=== PATIENT | male | born 1960 | race African-American/Black ===

== ENCOUNTER 2017-01-29 15:10 | Inpatient (IN) | payer OTHER ==
[~2017-01-29] VITALS: Ht 170.2 cm; Wt 73.5 kg
[~2017-01-29 15:10] MED LIST: AMLO2.5T PO; ATOR40TA PO; FLUD0.1T PO; INSU100V7 SQ; LISI-607 PO; METO10TA3 PO; NORT10CA PO; OXYC30TA2 PO; PANT40TA2 PO; [UNRECOGNIZED DRUG - CODE] PO
--- NOTE | 2017-01-29 15:15 | NUR ---
PT BIBRA C/O COFFEE GROUND EMESIS X 2 DAYS. NO VOMITING AT THIS TIME. PT ALERT ORIENTED. DENIES ANY PAIN. PLACED ON MONITOR. HR 130S. MD MADE AWARE. AWAITING MD ORDER.
[2017-01-29] MEDS ORDERED: IV SET PRIMARY PUMP SET 1 EA INFUS.SET MC ONE ×4 (15:29→22:02)
[2017-01-29] MEDS ORDERED: IV NS 0.9% 1,000 ML ONE (15:29)
[2017-01-29] MEDS ORDERED: IV NS 0.9% 1,000 ML BAG IV ONE ×2 (15:30→18:00)
--- NOTE | 2017-01-29 15:37 | NUR ---
[place] #20 IV ACCESS. BLOOD SAMPLE COLLECTED SENT TO LAB
[2017-01-29] MEDS ORDERED: METF500T4 PO (15:47)
[2017-01-29] MEDS ORDERED: ASPI81TA2 PO (15:47)
[2017-01-29] MEDS ORDERED: GABA-536 PO (15:47)
[2017-01-29 15:52] LABS: BASOPHILS % (AUTO) 0.2 % (0.0-2.0); HEMATOCRIT 35 % (39-51); HEMOGLOBIN 11.6 g/dL (13.5-17.5); LYMPHOCYTES # (AUTO) 0.6 /CMM (0.8-4.8); LYMPHOCYTES % (AUTO) 2.5 % (20.0-44.0); MEAN CORPUSCULAR HEMOGLOBIN 30 PG (26.0-33.0); MEAN CORPUSCULAR HGB CONC 33 g/dl (31.0-36.0); MEAN CORPUSCULAR VOLUME 91 fL (80-96); MONOCYTES # (AUTO) 0.3 /CMM (0.1-1.30); MONOCYTES % (AUTO) 1.4 % (2.0-12.0); NEUTROPHILS # (AUTO) 21.4 /CMM (1.8-8.9); NEUTROPHILS % (AUTO) 95.9 % (43.0-81.0); PLATELET COUNT (AUTO) 302 /CMM (150-450); RDW COEFFICIENT OF VARIATION 13.3 (11.5-15.0); RED BLOOD CELL COUNT(AUTO) 3.85 MIL/uL (4.5-6.0); WHITE BLOOD COUNT (AUTO) 22.3 K/uL (4.3-11.0)
[2017-01-29 16:08] LABS: PROTHROMBIN TIME 10.7 SECS (9.5-12.7)
[2017-01-29 16:10] LABS: CALCIUM, SERUM 9.2 mg/dL (8.5-10.1); CARBON DIOXIDE 23 mmol/L (21-32); CHLORIDE 96 mmol/L (98-107); CREATININE 1.8 mg/dL (0.6-1.3); GFR 47 mL/min (>60); GLUCOSE 330 mg/dL (74-106); POTASSIUM 4.2 mmol/L (3.5-5.1); SODIUM SERUM 135 mmol/L (136-145); UREA NITROGEN, BLOOD 25 mg/dL (7-18)
[2017-01-29 16:13] LABS: ALANINE AMINOTRANSFERASE 45 U/L (12-78); ALBUMIN 3.2 g/dL (3.4-5.0); ALKALINE PHOSPHATASE 124 U/L (46-116); ASPARTATE AMINOTRANSFERASE 40 U/L (15-37); BILIRUBIN,DIRECT 0.1 mg/dL (0.0-0.2); BILIRUBIN,TOTAL 0.6 mg/dL (0.2-1.0); LIPASE 176 U/L (73-393); TOTAL PROTEIN, SERUM 8.5 g/dL (6.4-8.2); TROPONIN I < 0.017 ng/mL (0.00-0.056)
[2017-01-29] MEDS ORDERED: CEFTRIAXONE 1GM BAG (ER ONLY) 50 ML IV ONE ×2 (16:25→16:30)
--- NOTE | 2017-01-29 16:30 | NUR ---
DR LEONE MADE AWARE PT CONDITION.
--- NOTE | 2017-01-29 16:49 | NUR ---
PT AMBULATORY ABLE TO PROVIDE URINE SAMPLE JUST COLLECTED SENT TO LAB. REFUSED VALLE INSERTION.
[2017-01-29 16:53] LABS: BAND % (MANUAL) 8 % (0.0-5.0); LYMPHOCYTES % (MANUAL) 1 % (16-48); MONOCYTES % (MANUAL) 1 % (0-11.0); NEUTROPHILS % (MANUAL) 90 (42-76); PLATELET ESTIMATE ADEQUATE
[2017-01-29 16:54] LABS: ANISOCYTOSIS 1+
--- NOTE | 2017-01-29 17:03 | NUR ---
PT TRANSPORTED TO [facility] IN STABLE CONDITION VIA ACLS PROTOCOL. BEDSIDE REPORT TO BE GIVEN; AGREED TO PER ADMITTING RN
[2017-01-29 17:08] LABS: APPEARANCE,URINE CLEAR (CLEAR); BILIRUBIN,URINE NEGATIVE (NEGATIVE); BLOOD, URINE 3+ Ery/uL (NEGATIVE); COLOR,URINE YELLOW (YELLOW); KETONES,URINE 1+ (NEGATIVE); LEUKOCYTE ESTERASE ,URINE NEGATIVE (NEGATIVE); NITRITE, URINE NEGATIVE (NEGATIVE); PH,URINE 5.5 (5.0-8.0); PROTEIN,URINE 2+ mg/dl (NEGATIVE); UGLUCOSE 3+ mg/dL (NEGATIVE); UROBILINOGEN,URINE 0.2 EU/dL (0.2)
--- NOTE | 2017-01-29 17:15 | NUR ---
RN INITIAL NOTE RECEIVED PT IN NO ACUTE DISTRESS IN BED. PT IS A/O X 4 AND ABLE TO MAKE NEEDS KNOWN. PT IS ON RA AND TOLERATING WELL WITH O2 SAT 2 96%. PT DENIES ANY SOB, DIFFICULTY BREATHING OR PAIN AT THIS TIME. PT STATES HE IS NAUSEAS AND HAD ONE RED TINGED EMESIS. ZOFRAN 4MG WAS GIVEN IVP. PT HAS IV 20G IN THE RIGHT HAND THAT IS CLEAN DRY INTACT AND PATENT WITH SALINE FLUSH. BED IN LOW LOCK POSITION WITH RIALS UP X 2. CALL LIGHT WITHIN REACH AND ALL SAFETY MEASURES ENSURED AND CARRIED OUT. WILL CONTINUE TO MONITOR PT.
--- NOTE | 2017-01-29 17:22 | NUR ---
PER DR LEONE. FLUID CHALLENGE TO BE FOLLOWED IF LACTIC ACID = OR > 4 PENDING RESULTS. ROCEPHIN WAS GIVEN PROPHYLATIC DUE TO ELEVATED WBC PER DR LEONE
[2017-01-29 17:37] LABS: LACTIC ACID 2.9 mmol/L (0.4-2.0)
[2017-01-29 17:42] LABS: ADD URINE CULTURE NO; BACTERIA,URINE 1+ /HPF (None Seen); SQUAMOUS EPITHELIAL CELL,UR 0-2 /HPF (None Seen); YEAST,URINE Few /HPF (None Seen)
[2017-01-29] MEDS: BLOOD SUGAR DIAGNOSTIC 1 EACH STRIP IN SCH ×2 (18:00→23:54)
[2017-01-29] MEDS ORDERED: DEXTROSE 50%-WATER 50 ML DISP.SYRIN IV PRN (18:00)
[2017-01-29] MEDS: IV NS 0.9% 1,000 ML IV SCH (18:00)
[2017-01-29] MEDS ORDERED: ZOLPIDEM TARTRATE 5 MG TABLET PO PRN (18:00)
[2017-01-29] MEDS ORDERED: Z GUARD REMEDY 2 OZ OINT TP PRN (18:00)
[2017-01-29] MEDS ORDERED: BLOOD SUGAR DIAGNOSTIC 1 EACH STRIP IN SCH (18:00)
[2017-01-29] MEDS: VANCOMYCIN 1 GM in IV D5W 250 ML IV SCH (18:00)
[2017-01-29] MEDS ORDERED: MAGNESIUM HYDROXIDE 30 ML UDC PO PRN (18:00)
[2017-01-29] MEDS ORDERED: MAG HYDROX/AL HYDROX/SIMETH 30 ML UDC PO PRN (18:00)
[2017-01-29] MEDS ORDERED: FEE PK DOSING 1 MIN EA MC ONE (18:01)
[2017-01-29] MEDS ORDERED: IV NS 0.9% 1,000 ML IV ONE (18:30)
[2017-01-29] MEDS ORDERED: hydrALAZINE HCL 25 MG TABLET PO SCH (18:30)
[2017-01-29] MEDS ORDERED: hydrALAZINE HCL IV 20 MG VIAL IV ONE (18:30)
[2017-01-29] MEDS: ONDANSETRON HCL/PF 4 MG/2 ML VIAL IVP PRN (18:41)
[2017-01-29] MEDS ORDERED: SECONDARY IV SET 1 EA INFUS.SET MC ONE (19:39)
[2017-01-29 20:00] VITALS: BP 172/95
[2017-01-29] MEDS: METOPROLOL TARTRATE 25 MG TABLET PO SCH (20:11)
[2017-01-29] MEDS: AMLODIPINE BESYLATE 10 MG TABLET PO SCH (20:12)
[2017-01-29] MEDS: hydrALAZINE HCL 10 MG TABLET PO SCH (21:00)
--- NOTE | 2017-01-29 22:00 | NUR ---
RN NOTE RECEIVED ORDERS FROM BRANDON BOWDEN NP TO GIVE PT 500 ML BOLUS. ORDERS READ AND FOLLOWED.
[2017-01-29] MEDS ORDERED: PANTOPRAZOLE 40 MG VIAL ONE (22:02)
[2017-01-29] MEDS ORDERED: IV NS 0.9% 500 ML IV ONE (22:03)
[2017-01-29] MEDS: INSULIN REGULAR, HUMAN 100 UNIT/ML 3 ML VIAL SQ PRN (23:57)
[2017-01-30] VITALS (9 sets, daily range): BP systolic 109–172; BP diastolic 52–95
[2017-01-30] MEDS ORDERED: IV NS 0.9% 500 ML IV ONE ×3 (02:30→03:30)
[2017-01-30] MEDS ORDERED: IV SET PRIMARY PUMP SET 1 EA INFUS.SET MC ONE (03:09)
[2017-01-30] MEDS ORDERED: LIDOCAINE 2% JEL UROJET 10 ML MM ONE ×2 (03:21→03:30)
--- NOTE | 2017-01-30 03:30 | NUR ---
RN NOTE RECEIVED ORDER FROM BRANDON BOWDEN NP TO PLACE F/C. VALLE CATHETER PLACED SUCCESSFULLY AND RECEIVED GOOD URINE FLOW. URINE LOOKED COLETTE COLORED. PT TOLERATED PROCEDURE WELL.
[2017-01-30] MEDS: hydrALAZINE HCL 10 MG TABLET PO SCH (05:00)
[2017-01-30] MEDS: METOPROLOL TARTRATE 25 MG TABLET PO SCH ×2 (05:00→06:02)
[2017-01-30] MEDS: BLOOD SUGAR DIAGNOSTIC 1 EACH STRIP IN SCH ×3 (06:03→17:18)
[2017-01-30] MEDS: PIPERACILLIN /TAZOBACTAM 3.375 G in IV D5W 50 ML IV SCH ×5 (06:04→17:04)
[2017-01-30] MEDS: INSULIN REGULAR, HUMAN 100 UNIT/ML 3 ML VIAL SQ PRN (06:07)
[2017-01-30 07:07] LABS: CALCIUM, SERUM 7.6 mg/dL (8.5-10.1); MAGNESIUM 1.9 mg/dL (1.8-2.4); PHOSPHORUS 2.6 mg/dL (2.5-4.9); POTASSIUM 4.1 mmol/L (3.5-5.1)
[2017-01-30 07:11] LABS: THYROID STIMULATING HORMONE 0.299 uIU/mL (0.358-3.74)
[2017-01-30 07:31] LABS: HEMATOCRIT 32 % (39-51); HEMOGLOBIN 10.7 g/dL (13.5-17.5); LYMPHOCYTES # (AUTO) 0.8 /CMM (0.8-4.8); LYMPHOCYTES % (AUTO) 3.3 % (20.0-44.0); MEAN CORPUSCULAR HEMOGLOBIN 31 PG (26.0-33.0); MEAN CORPUSCULAR HGB CONC 34 g/dl (31.0-36.0); MEAN CORPUSCULAR VOLUME 92 fL (80-96); MONOCYTES # (AUTO) 1.1 /CMM (0.1-1.30); MONOCYTES % (AUTO) 4.6 % (2.0-12.0); NEUTROPHILS # (AUTO) 21.4 /CMM (1.8-8.9); NEUTROPHILS % (AUTO) 92.1 % (43.0-81.0); PLATELET COUNT (AUTO) 274 /CMM (150-450); RDW COEFFICIENT OF VARIATION 13.5 (11.5-15.0); RED BLOOD CELL COUNT(AUTO) 3.47 MIL/uL (4.5-6.0); WHITE BLOOD COUNT (AUTO) 23.2 K/uL (4.3-11.0)
[2017-01-30] MEDS: AMLODIPINE BESYLATE 10 MG TABLET PO SCH (08:54)
[2017-01-30] MEDS: PANTOPRAZOLE 80 MG in IV NS 0.9% 500 ML IV SCH ×2 (10:05→20:37)
[2017-01-30] MEDS: IV NS 0.9% 1,000 ML IV SCH (11:16)
--- NOTE | 2017-01-30 12:23 | NUR ---
WOUND CARE CONSULT: PATIENT SEEN AND SKIN ASSESSMENT DONE. PATIENT ALERT, ORIENTED, CONTINENT, AMBULATORY WITH WALKER, INDEPENDENT WITH BED MOBILITY, DEWAYNE 17. BILATERAL LOWER LEGS NOTED WITH HEALED SCARS, THE RIGHT FOOT NOTED WITH AMPUTATED 5TH TOE WITH HEALED INCISION, CLEAN AND DRY. THE RIGHT BIG TOE LACERATED WOUND PRESENT ON ADMISSION. PLS SEE TODAY'S SKIN ASSESSMENT IN PCS ALONG WITH RECOMMENDATIONS DISCUSSED WITH NURSING STAFF. MD IN AGREEMENT WITH PLAN OF CARE. Addendum: 01/30/17 at 1229 by FELIPA WOODU Amended: Links added. Addendum: 01/30/17 at 1234 by FELIPA WOODU WOUND CARE CONSULT CLARIFICATION OF WOUND SITE: PATIENT HAS TIP OF THE LEFT BIG TOE TRAUMATIC WOUND WITH LACERATION, NOT RIGHT. TYPO ERROR. SEE PCS SKIN ASSESSMENT AND RECOMMENDATIONS.
[2017-01-30] MEDS: VANCOMYCIN 1 GM in IV D5W 250 ML IV SCH (12:25)
[2017-01-30] MEDS: NEOMY SULF/BACITRAC ZN/POLY 15 GM TUBE TP SCH (12:30)
[2017-01-30] MEDS ORDERED: SECONDARY IV SET 1 EA INFUS.SET MC ONE (18:37)
[2017-01-30] MEDS: MEROPENEM 500 MG in IV NS 0.9% 50 ML IV SCH (18:42)
[2017-01-30] MEDS: HYDROCODONE/APAP 5/325MG 1 EACH TABLET PO PRN (18:42)
--- NOTE | 2017-01-30 19:24 | NUR ---
RN CLOSING NOTE PT REMAINS IN NO ACUTE DISTRESS IN BED. PT DID NOT HAVE ANY SIGNIFICANT CHANGE IN CONDITION DURING THE SHIFT. WILL ENDORSE TO pm RN FOR CONTINUITY OF CARE. .
--- NOTE | 2017-01-30 21:09 | NUR ---
RN INITIAL NOTE RECEIVED PT IN NO ACUTE DISTRESS IN BED. PT IS A/O X 4 AND ABLE TO MAKE NEEDS KNOWN. PT IS ON 4LPM VIA MASK AND TOLERATING WELL WITH O2 SAT @ 96%. PT DENIES ANY SOB, DIFFICULTY BREATHING OR PAIN AT THIS TIME. PT IS ON TELE WITH SR-ST @ 98-100s. PT HAS IV 20G IN THE RIGHT HAND THAT IS CLEAN DRY INTACT AND PATENT WITH NS @ 75ML/HR AND PROTONIX DRIP @ 52ML/HR. BED IN LOW LOCK POSITION WITH RIALS UP X 2. CALL LIGHT WITHIN REACH AND ALL SAFETY MEASURES ENSURED AND CARRIED OUT. WILL CONTINUE TO MONITOR PT.
[2017-01-30] MEDS: INSULIN DETEMIR 100 UNIT/ML CARTRIDGE SQ SCH (21:43)
[2017-01-31] VITALS (7 sets, daily range): BP systolic 97–146; BP diastolic 47–86
[2017-01-31] MEDS: BLOOD SUGAR DIAGNOSTIC 1 EACH STRIP IN SCH ×4 (00:57→17:03)
[2017-01-31] MEDS: INSULIN REGULAR, HUMAN 100 UNIT/ML 3 ML VIAL SQ PRN (00:58)
[2017-01-31] MEDS ORDERED: LORAZEPAM INJ 2 MG/ML VIAL ONE (03:04)
[2017-01-31] MEDS: LORAZEPAM INJ 2 MG/ML VIAL IV PRN ×2 (03:18→17:10)
[2017-01-31] MEDS: IV NS 0.9% 1,000 ML IV PRN (03:22)
[2017-01-31] MEDS: MEROPENEM 500 MG in IV NS 0.9% 50 ML IV SCH ×2 (04:56→17:02)
[2017-01-31] MEDS: VANCOMYCIN 1 GM in IV D5W 250 ML IV SCH (05:47)
[2017-01-31] MEDS: METOPROLOL TARTRATE 25 MG TABLET PO SCH ×2 (06:38→17:35)
[2017-01-31 06:57] LABS: BASOPHILS % (AUTO) 0.1 % (0.0-2.0); HEMATOCRIT 31 % (39-51); HEMOGLOBIN 10.4 g/dL (13.5-17.5); LYMPHOCYTES # (AUTO) 1.2 /CMM (0.8-4.8); LYMPHOCYTES % (AUTO) 4.3 % (20.0-44.0); MEAN CORPUSCULAR HEMOGLOBIN 31 PG (26.0-33.0); MEAN CORPUSCULAR HGB CONC 34 g/dl (31.0-36.0); MEAN CORPUSCULAR VOLUME 91 fL (80-96); MONOCYTES # (AUTO) 1.4 /CMM (0.1-1.30); NEUTROPHILS # (AUTO) 25.3 /CMM (1.8-8.9); NEUTROPHILS % (AUTO) 90.6 % (43.0-81.0); PLATELET COUNT (AUTO) 265 /CMM (150-450); RDW COEFFICIENT OF VARIATION 13.9 (11.5-15.0); RED BLOOD CELL COUNT(AUTO) 3.41 MIL/uL (4.5-6.0)
[2017-01-31 07:04] LABS: CALCIUM, SERUM 7.7 mg/dL (8.5-10.1); POTASSIUM 3.6 mmol/L (3.5-5.1)
[2017-01-31] MEDS ORDERED: KETAMINE HCL (500MG/10ML) 50 MG/ML VIAL ONE (07:23)
--- NOTE | 2017-01-31 07:51 | NUR ---
RN CLOSING NOTE PT REMAINS IN NO ACUTE DISTRESS IN BED. PT DID NOT HAVE ANY SIGNIFICANT CHANGE IN CONDITION DURING SHIFT. WILL ENDORSE CARE TO AM RN FOR CONTINUITY OF CARE.
[2017-01-31] MEDS: NEOMY SULF/BACITRAC ZN/POLY 15 GM TUBE TP SCH (09:14)
[2017-01-31] MEDS: AMLODIPINE BESYLATE 10 MG TABLET PO SCH (09:21)
--- NOTE | 2017-01-31 10:30 | NUR ---
HIDES INSPECTOR NOTE Pt left for OR around 0730, arrived back around 0900. VSS, advanced diet to clear liquid. On 5L mask, O2 90-93%. AOx4. Abdomen distended. Right wrist IV removed, has left wrist IV. Only able to run 1 IV fluid through left wrist, running protonix gtt at 8mg/hr. Received order for midline to be inserted later today. Will cont to monitor.
[2017-01-31 11:56] LABS: LYMPHOCYTES % (MANUAL) 10 % (16-48); MONOCYTES % (MANUAL) 5 % (0-11.0); NEUTROPHILS % (MANUAL) 85 (42-76); PLATELET ESTIMATE ADEQUATE
[2017-01-31] MEDS ORDERED: IV SET PRIMARY PUMP SET 1 EA INFUS.SET MC ONE (15:15)
[2017-01-31] MEDS: PANTOPRAZOLE 80 MG in IV NS 0.9% 500 ML IV SCH (15:22)
[2017-01-31] MEDS: HYDROCODONE/APAP 5/325MG 1 EACH TABLET PO PRN (16:51)
--- NOTE | 2017-01-31 17:59 | NUR ---
SITE SAFETY REPRESENTATIVE NOTE ADRIANO midline 18g placed, NS infusing at 75ml/hr. +MD TAI aware. Switches between mask and NC, O2 90-93%. BG at 1200 62, gave juice, BG at 1800 105. Still on clear liquids, tolerating well. Cherokee x1 for pain, ativan x1 for restlessness. Chapman w/ adequate UO. BM x1, watery, dark. Will endorse to next RN.
[2017-01-31] MEDS: RIFAMPIN 300 MG CAPSULE PO SCH (19:01)
--- NOTE | 2017-01-31 20:15 | NUR ---
RN NOTE. INITIAL ASSESSMENT. RECEIVED THE PT REST ON THE BED. AWAKE, ALERT, FOLLOW COMMANDS. OXYGEN 5L VIA NASAL CANNULA. SAT 97 %. BULB GROWER SHOWING S TACH. IV RT UPPER ARM MID LINE. IVF NS 75 ML/PROTONIX 50 ML/H. . FC PATENT. URINE DRAINING. HOB ELEVATED.TURN AND REPOSITION Q2H. WILL CONTINUE TO MONITOR VITALS.
[2017-01-31] MEDS: INSULIN DETEMIR 100 UNIT/ML CARTRIDGE SQ SCH (22:00)
--- NOTE | 2017-01-31 23:25 | NUR ---
RN NOTE. PT HAS SHORTNESS OF BREATH CALLED DR BEDOYA NEW ORDER RECEIVED.
[2017-01-31 23:51] LABS: ABG BASE EXCESS -3.6 mmol/L; ABG OXYGEN SATURATION 87.1 % (92.0-98.5); ABG PCO2 32.5 mmHg (35.0-45.0); ABG PH 7.413 (7.350-7.450); ABG PO2 53.1 mmHg (75.0-100.0); ABG TOTAL HEMOGLOBIN 10.7 G/dL (13.5-18.0); AaDO2 194.7 mmHg; COHb 0.2 % (0.5-1.5); MetHb 1.1 % (0.0-1.5); SITE, ABG Right Radial; VENT MODE, BG Nasal Cannula
[2017-02-01] VITALS (8 sets, daily range): BP systolic 112–152; BP diastolic 70–85
--- NOTE | 2017-02-01 00:43 | NUR ---
RN NOTE. LEVEMIR 2200 NOT GIVEN.BLOOD SUGAR 92.
[2017-02-01] MEDS: PANTOPRAZOLE 80 MG in IV NS 0.9% 500 ML IV SCH (00:53)
[2017-02-01] MEDS: BLOOD SUGAR DIAGNOSTIC 1 EACH STRIP IN SCH ×4 (00:53→17:40)
[2017-02-01] MEDS: VANCOMYCIN 1 GM in IV D5W 250 ML IV SCH ×2 (00:53→18:24)
[2017-02-01] MEDS: IV NS 0.9% 1,000 ML IV PRN (00:54)
--- NOTE | 2017-02-01 02:12 | NUR ---
PRODUCTION SUPV. DR ROSEN ORDERED MRI LT FOOT. CALLED X RAY. MRI NO PRODUCTION SERVICE MANAGER. ONLY MORNING.
--- NOTE | 2017-02-01 02:55 | NUR ---
RN NOTE. AM CARE. ORAL CARE. BED BATH GIVEN. LINEN CHANGED. REMAINING SAME OXYGEN 5L VIA NASAL CANNULA. SAT99 %. ABDOMEN DISTENDED.IV RT UPPER ARM MID LINE. NS 75ML/H, PROTONIX 50 ML/H. HOB ELEVATED. TURN AND REPOSITION PT INDEPENDENT.FC PATENT. URINE DRAINING. WILL CONTINUE TO MONITOR VITALS.
[2017-02-01] MEDS: LORAZEPAM INJ 2 MG/ML VIAL IV PRN (04:36)
[2017-02-01] MEDS: MEROPENEM 500 MG in IV NS 0.9% 50 ML IV SCH ×2 (05:55→17:40)
[2017-02-01] MEDS: METOPROLOL TARTRATE 25 MG TABLET PO SCH ×2 (05:56→18:30)
[2017-02-01] MEDS: HYDROCODONE/APAP 5/325MG 1 EACH TABLET PO PRN ×3 (06:20→20:25)
[2017-02-01] MEDS: NEOMY SULF/BACITRAC ZN/POLY 15 GM TUBE TP SCH (08:14)
[2017-02-01] MEDS: RIFAMPIN 300 MG CAPSULE PO SCH (08:21)
[2017-02-01] MEDS: AMLODIPINE BESYLATE 10 MG TABLET PO SCH (08:21)
[2017-02-01 08:37] LABS: BASOPHILS % (AUTO) 0.1 % (0.0-2.0); HEMATOCRIT 27 % (39-51); HEMOGLOBIN 9.2 g/dL (13.5-17.5); LYMPHOCYTES # (AUTO) 1.3 /CMM (0.8-4.8); LYMPHOCYTES % (AUTO) 4.5 % (20.0-44.0); MEAN CORPUSCULAR HEMOGLOBIN 31 PG (26.0-33.0); MEAN CORPUSCULAR HGB CONC 34 g/dl (31.0-36.0); MEAN CORPUSCULAR VOLUME 90 fL (80-96); MONOCYTES % (AUTO) 3.5 % (2.0-12.0); NEUTROPHILS # (AUTO) 26.1 /CMM (1.8-8.9); NEUTROPHILS % (AUTO) 91.9 % (43.0-81.0); PLATELET COUNT (AUTO) 227 /CMM (150-450); RDW COEFFICIENT OF VARIATION 13.8 (11.5-15.0); RED BLOOD CELL COUNT(AUTO) 3.02 MIL/uL (4.5-6.0); WHITE BLOOD COUNT (AUTO) 28.4 K/uL (4.3-11.0)
[2017-02-01 08:41] LABS: CALCIUM, SERUM 7.2 mg/dL (8.5-10.1); CREATININE 1.9 mg/dL (0.6-1.3); MAGNESIUM 2.4 mg/dL (1.8-2.4); PHOSPHORUS 2.4 mg/dL (2.5-4.9); POTASSIUM 3.3 mmol/L (3.5-5.1)
[2017-02-01 09:23] LABS: BAND % (MANUAL) 2 % (0.0-5.0); LYMPHOCYTES % (MANUAL) 4 % (16-48); MONOCYTES % (MANUAL) 3 % (0-11.0); NEUTROPHILS % (MANUAL) 91 (42-76); PLATELET ESTIMATE ADEQUATE
--- NOTE | 2017-02-01 10:00 | NUR ---
SHREDDED FILLER MACHINE WRAPPER LAYER NOTE AOx4, O2 88-93% on 5L NC. MRI foot done. Denies SOB, nausea. On isolation. ADRIANO midline with NS 75ml/hr and protonix 8mg/hr. Advanced to full liquid diet. Chapman patent. Will cont to monitor.
[2017-02-01] MEDS: INSULIN REGULAR, HUMAN 100 UNIT/ML 3 ML VIAL SQ PRN ×2 (11:44→17:57)
[2017-02-01] MEDS ORDERED: POTASSIUM CHLORIDE 10 MEQ TABLET.SA PO ONE (12:30)
[2017-02-01] MEDS: ACETAMINOPHEN 325 MG TABLET PO PRN (12:35)
[2017-02-01] MEDS ORDERED: K PHOS NEUTRAL 250 MG TABLET PO ONE (13:00)
[2017-02-01] MEDS ORDERED: POTASSIUM CHLORIDE 20 MEQ TAB.PRT.SR PO ONE (17:30)
[2017-02-01] MEDS ORDERED: FUROSEMIDE 100 MG/10 ML VIAL IV ONE (17:30)
--- NOTE | 2017-02-01 18:33 | NUR ---
EDITING INTERNSHIP NOTE Pt c/o difficulty catching breath, CXR ordered. 1x lasix given, on scheduled nebs. 450cc UO. Maple x1 for pain in chest. Will have surgery tmrw for left toe amputation, NPO at midnight, consent signed. FNS consult ordered d/t pt not having an appetite. NS TKO for abx. Phos and K replaced. Will endorse to next RN.
--- NOTE | 2017-02-01 19:30 | NUR ---
BUCKLE AND BUTTON MAKER INITIAL NOTE RECEIVED PATIENT FROM AM SHIFT. PT IS A/OX4 O2 88-93% on 5L NC. PT ON TELE ST 120. FC IS PATENT FLOWING WELL. ADRIANO 18G MIDLINE PATENT AND INTACT WITH NO S/S OF INFILTRATION. WILL CONTINUE TO MONITOR AND FOLLOW MD ORDERS.
[2017-02-01] MEDS: IPRATROPIUM NEB FS 0.5 MG/2.5 ML AMPUL.NEB NEB SCH ×2 (19:36→23:22)
[2017-02-01] MEDS: ALBUTEROL HALF STRENGTH 1.25 MG/3 ML VIAL.NEB NEB SCH ×2 (19:36→23:22)
[2017-02-01] MEDS: INSULIN DETEMIR 100 UNIT/ML CARTRIDGE SQ SCH (22:00)
[2017-02-02] VITALS: BP 157/76
[2017-02-02] MEDS: ACETAMINOPHEN 325 MG TABLET PO PRN ×2 (00:27→08:38)
[2017-02-02] MEDS ORDERED: IV NS 0.9% 500 ML IV ONE (01:57)
[2017-02-02] MEDS ORDERED: PANTOPRAZOLE 40 MG VIAL ONE (01:58)
[2017-02-02] MEDS: PANTOPRAZOLE 80 MG in IV NS 0.9% 500 ML IV SCH (02:14)
[2017-02-02] MEDS ORDERED: IV NS 0.9% 250 ML IV ONE (02:17)
[2017-02-02] MEDS ORDERED: IV SET PRIMARY PUMP SET 1 EA INFUS.SET MC ONE ×2 (02:18→19:57)
[2017-02-02] MEDS: ALBUTEROL HALF STRENGTH 1.25 MG/3 ML VIAL.NEB NEB SCH ×6 (03:12→23:30)
[2017-02-02] MEDS: IPRATROPIUM NEB FS 0.5 MG/2.5 ML AMPUL.NEB NEB SCH ×6 (03:12→23:30)
--- NOTE | 2017-02-02 03:13 | NUR ---
RT PT REFUSED TX. TX MAKES HI FEEL SHAKY AT TIMES. NO SOB OR DISTRESS NOTED.
[2017-02-02 04:00] VITALS: BP 141/84
[2017-02-02] MEDS: MEROPENEM 500 MG in IV NS 0.9% 50 ML IV SCH ×2 (05:29→17:50)
[2017-02-02] MEDS: METOPROLOL TARTRATE 25 MG TABLET PO SCH ×2 (05:46→18:07)
[2017-02-02] MEDS: BLOOD SUGAR DIAGNOSTIC 1 EACH STRIP IN SCH ×5 (06:00→23:09)
[2017-02-02 06:40] LABS: BASOPHILS # (AUTO) 0.1 /CMM (0.0-0.2); BASOPHILS % (AUTO) 0.3 % (0.0-2.0); EOSINOPHILS # (AUTO) 0.1 /CMM (0.0-0.7); EOSINOPHILS % (AUTO) 0.3 % (0.0-6.0); HEMATOCRIT 29 % (39-51); HEMOGLOBIN 9.7 g/dL (13.5-17.5); LYMPHOCYTES # (AUTO) 2.2 /CMM (0.8-4.8); LYMPHOCYTES % (AUTO) 7.1 % (20.0-44.0); MEAN CORPUSCULAR HEMOGLOBIN 31 PG (26.0-33.0); MEAN CORPUSCULAR HGB CONC 34 g/dl (31.0-36.0); MEAN CORPUSCULAR VOLUME 92 fL (80-96); MONOCYTES % (AUTO) 6.5 % (2.0-12.0); NEUTROPHILS # (AUTO) 26.3 /CMM (1.8-8.9); NEUTROPHILS % (AUTO) 85.8 % (43.0-81.0); PLATELET COUNT (AUTO) 275 /CMM (150-450); RED BLOOD CELL COUNT(AUTO) 3.14 MIL/uL (4.5-6.0)
[2017-02-02 06:52] LABS: WHITE BLOOD COUNT (AUTO) 30.6 K/uL (4.3-11.0)
[2017-02-02 07:07] LABS: CALCIUM, SERUM 7.5 mg/dL (8.5-10.1); CREATININE 1.9 mg/dL (0.6-1.3); PHOSPHORUS 2.5 mg/dL (2.5-4.9); POTASSIUM 3.8 mmol/L (3.5-5.1)
[2017-02-02 07:24] LABS: INR 0.95 (0.87-1.13); PROTHROMBIN TIME 10.1 SECS (9.5-12.7)
[2017-02-02 08:00] VITALS: BP 155/76
--- NOTE | 2017-02-02 08:00 | NUR ---
REGIONAL DIRECTOR NOTE PATINT BACK FROM OR, SX WAS CANCELED DR CROCKETT AND DR LY AWARE , PATINE ALERT ORIENTED, IN SIMPLE MASK 6L SAT 91% STATED ITS HARD TO BREATH ON PROTONIX RIP , ORDERED, BED IN LOWEST AND LOCKED POSITION, CALL LIGHT WITH REACH, PER DR SEGOVIA OK TO START FULL LIQUID DIET T 100.4
--- NOTE | 2017-02-02 08:15 | NUR ---
SYSTEM ANALYST NOTE HAVING BREAKFAST ABLE TO EAT SELF, REPOSITION DONE ,MAKE ALL NEEDS KNOW, ADJUSTED SIMPLE MASK TO 7L SAT 94%, CALLED RT FOR BREATHING TX
--- NOTE | 2017-02-02 08:30 | NUR ---
ALMOND ROASTER NOTE STILL C\O DIFFICULT TO BREATH ,CALLED RT , PATIENT NOW ON BREATHING , ABG DOING NOW AND EKG , PATENT C]O NOW CHEST PAIN JUHI URBINA DNP NOTIFIED
[2017-02-02] MEDS: RIFAMPIN 300 MG CAPSULE PO SCH (08:38)
[2017-02-02] MEDS: NEOMY SULF/BACITRAC ZN/POLY 15 GM TUBE TP SCH (08:39)
[2017-02-02 08:41] LABS: EOSINOPHILS % (MANUAL) 1 % (0-4); LYMPHOCYTES % (MANUAL) 10 % (16-48); MONOCYTES % (MANUAL) 3 % (0-11.0); NEUTROPHILS % (MANUAL) 86 (42-76)
[2017-02-02 08:42] LABS: ANISOCYTOSIS 1+; PLATELET ESTIMATE ADEQUATE
--- NOTE | 2017-02-02 09:00 | NUR ---
ADDING MACHINE SERVICER NOTE ABG DONE EKG DONE , PER RT AND ABG RESULT PLACED ON 6; SIMPLE MASK , SPOKE WITH DR DE JESUS NOTIFIED ABOUT PATIENT CONDITION ,STATED THAT WILL CHECK IT, TYLENOL AND COOLING MEASURES PROVIDED FOR T 100.4
[2017-02-02 09:30] LABS: ABG BASE EXCESS -4.2 mmol/L; ABG OXYGEN SATURATION 92.6 % (92.0-98.5); ABG PCO2 31.2 mmHg (35.0-45.0); ABG PH 7.412 (7.350-7.450); ABG PO2 67.1 mmHg (75.0-100.0); ABG TOTAL HEMOGLOBIN 12.3 G/dL (13.5-18.0); AaDO2 110.1 mmHg; COHb 1.3 % (0.5-1.5); MetHb 0.8 % (0.0-1.5); O2Hb 90.7 % (94.0-97.0); SITE, ABG Right Radial; VENT MODE, BG Nasal Cannula
[2017-02-02] MEDS: AMLODIPINE BESYLATE 10 MG TABLET PO SCH (09:59)
--- NOTE | 2017-02-02 10:16 | NUR ---
JOSE VELA NOTE MANISHG COMFORTABLY FOR LINDA , SAT 98% , T 99.3 Addendum: 02/02/17 at 1048 by FLORENTINO DALE RN HAVING BREATHING TX FOR NOW
--- NOTE | 2017-02-02 11:28 | NUR ---
PRODUCT DEVELOPMENT CONSULTANT NOTE PER DIETITIAN OK TO START BOOST TID
[2017-02-02] MEDS ORDERED: PANTOPRAZOLE 80 MG in IV NS 0.9% 500 ML IV PRN (11:30)
[2017-02-02] MEDS: VANCOMYCIN 1 GM in IV D5W 250 ML IV SCH (11:50)
[2017-02-02] MEDS: INSULIN REGULAR, HUMAN 100 UNIT/ML 3 ML VIAL SQ PRN ×3 (11:54→23:09)
[2017-02-02 12:00] VITALS: BP 139/67
[2017-02-02] MEDS: BOOST GLUCOSE CONTROL VANILLA 237 ML BOX PO SCH ×2 (12:40→18:08)
--- NOTE | 2017-02-02 14:09 | NUR ---
FIELD APPLICATIONS SPECIALIST NOTE SPOKE WITH JUHI URBINA NOTIFIED ABOUT PATIENT CONDITION, ABDOMEN STILL DISTENDED BOWEL MOVEMENT DONE AND STILL HAS SOB ON 6L SIMPLE MASK , SAT 95% AWARE THAT WBC 30.0 TODAY , ON BREATHING TX Q4 HOUR ON VANCO AND MERREM IV ,STATED THAT WILL SEE PATIENT SOON ,AWARE THAT ON ABG PO2 67 ALSO AWARE THAT HR ST 128-130
--- NOTE | 2017-02-02 14:34 | NUR ---
HARNESS REPAIRER NOTE PER JUHI URBINA DNP DONT GIVE PNA VACCINE AT THIS TIME DUE TO SEVERE CHEST CONGESTION , CIARA AT BESIDE, EXAMINED PATIENT AWARE OF CHEST X RAY RESULT AND HR 125 WITH STILL SOB
[2017-02-02] MEDS ORDERED: POTASSIUM CHLORIDE 20 MEQ TAB.PRT.SR PO ONE ×2 (15:00→19:30)
[2017-02-02] MEDS ORDERED: FUROSEMIDE 100 MG/10 ML VIAL IV ONE (15:00)
[2017-02-02 15:28] LABS: ABG BASE EXCESS -1.9 mmol/L; ABG OXYGEN SATURATION 92.6 % (92.0-98.5); ABG PCO2 30.6 mmHg (35.0-45.0); ABG TOTAL HEMOGLOBIN 9.9 G/dL (13.5-18.0); COHb 0.3 % (0.5-1.5); MetHb 1.1 % (0.0-1.5); O2Hb 91.3 % (94.0-97.0); SITE, ABG Right Radial; VENT MODE, BG SM
--- NOTE | 2017-02-02 15:45 | NUR ---
TERRITORY ACCOUNT REPRESENTATIVE NOTE ABG DONE STAT ORDERED REPORTED RESULT TO JUHI URBINA DNP, ON BREATHING TX AT THIS TIME
[2017-02-02 16:00] VITALS: BP 155/75
--- NOTE | 2017-02-02 16:24 | NUR ---
ARTICULATION OFFICER NOTE BREATHING TX DONE, TAKEN TO RADIOLOGY RO CT CHEST
--- NOTE | 2017-02-02 16:34 | NUR ---
MEDIA CENTER DIRECTOR SCHOOL NOTE PER JUHI URBINA ORDER D\C PROTONIX DRIP START BID
[2017-02-02] MEDS ORDERED: PANTOPRAZOLE 40 MG VIAL IV SCH (17:00)
[2017-02-02] MEDS ORDERED: INSULIN REGULAR, HUMAN 100 UNIT/ML 3 ML VIAL SQ ONE (18:00)
[2017-02-02] MEDS ORDERED: BUMETANIDE INJ 6 MG in IV NS 0.9% 36 ML IV ONE (19:00)
--- NOTE | 2017-02-02 19:07 | NUR ---
telephone directory distributor driver anabelle called to tressa mccartney dnp notifyed ct chest result with new order kcl and start on bumex drip 1mg\hr x6 hour , order carried out
--- NOTE | 2017-02-02 19:30 | NUR ---
MARKETING PLANNING MANAGER: PT RECEIVED A/O X3, WATCHING TV WITH EPISODE OF RESTLESSNESS. ON 5L 02 VIA VIA FACE MASK AND C/O OF HAVING DIFFICULTY BREATHING. SOB WT ABDOMINAL DISTENTION NOTED. REPOSITIONED FOR COMFORT, HOB ON HIGH-DO'S. ST ON TELE MONITOR. F/C PATENT AND INTACT DRAINING TEA COLORED URINE TO GRAVITY. SAFETY PRECAUTION NOTED. WILL CONTINUE TO MONITOR.
[2017-02-02 20:00] VITALS: BP 150/78
[2017-02-02] MEDS: PANTOPRAZOLE 40 MG VIAL IV SCH (21:20)
[2017-02-02] MEDS: INSULIN DETEMIR 100 UNIT/ML CARTRIDGE SQ SCH (23:07)
--- NOTE | 2017-02-02 23:38 | NUR ---
RT PT REFUSED MEDS AT THIS TIME. NO SOB OR DISTRESS NOTED.
[2017-02-03] VITALS: BP 125/55
--- NOTE | 2017-02-03 00:30 | NUR ---
BAND BIAS MACHINE OPERATOR: PT ASLEEP, EASILY AROUSED VIA VERBAL/TOUCH STIMULI. NO ACUTE DISTRESS. 02 SAT 99-100%. REMAINED ON 5L [address] V[address] MASK. STILL [address] ON TELE MONITOR. NOTED LARGE AMT. OF TEA COLORED URINE IN F/C WHILE ON BUMEX DRIP. VERBALIZED HE IS FEELING BETTER. WILL CONTINUE TO MONITOR.
[2017-02-03] MEDS ORDERED: IV NS 0.9% 250 ML IV ONE ×2 (03:27→17:33)
[2017-02-03] MEDS: ALBUTEROL HALF STRENGTH 1.25 MG/3 ML VIAL.NEB NEB SCH ×6 (03:30→23:13)
[2017-02-03] MEDS: IPRATROPIUM NEB FS 0.5 MG/2.5 ML AMPUL.NEB NEB SCH ×6 (03:30→23:13)
--- NOTE | 2017-02-03 03:30 | NUR ---
SENIOR IT ARCHITECT: PLACED ON 4L O2 VIA NC. NO ACUTE DISTRESS. NO EVIDENCE OF DISCOMFORT.
[2017-02-03] MEDS: IV NS 0.9% 250 ML IV PRN ×2 (03:36→19:27)
[2017-02-03 04:00] VITALS: BP 133/75
[2017-02-03] MEDS ORDERED: SECONDARY IV SET 1 EA INFUS.SET MC ONE ×2 (04:06→11:39)
[2017-02-03] MEDS: MEROPENEM 500 MG in IV NS 0.9% 50 ML IV SCH ×2 (05:20→19:07)
[2017-02-03 06:07] LABS: BASOPHILS # (AUTO) 0.1 /CMM (0.0-0.2); BASOPHILS % (AUTO) 0.4 % (0.0-2.0); EOSINOPHILS # (AUTO) 0.2 /CMM (0.0-0.7); EOSINOPHILS % (AUTO) 0.6 % (0.0-6.0); HEMATOCRIT 31 % (39-51); HEMOGLOBIN 10.7 g/dL (13.5-17.5); LYMPHOCYTES # (AUTO) 2.3 /CMM (0.8-4.8); LYMPHOCYTES % (AUTO) 7.4 % (20.0-44.0); MEAN CORPUSCULAR HEMOGLOBIN 30 PG (26.0-33.0); MEAN CORPUSCULAR HGB CONC 34 g/dl (31.0-36.0); MEAN CORPUSCULAR VOLUME 89 fL (80-96); MONOCYTES # (AUTO) 2.1 /CMM (0.1-1.30); MONOCYTES % (AUTO) 6.9 % (2.0-12.0); NEUTROPHILS # (AUTO) 25.9 /CMM (1.8-8.9); NEUTROPHILS % (AUTO) 84.7 % (43.0-81.0); PLATELET COUNT (AUTO) 362 /CMM (150-450); RDW COEFFICIENT OF VARIATION 13.9 (11.5-15.0); RED BLOOD CELL COUNT(AUTO) 3.52 MIL/uL (4.5-6.0)
[2017-02-03 06:18] LABS: CALCIUM, SERUM 8.3 mg/dL (8.5-10.1); CREATININE 1.7 mg/dL (0.6-1.3); MAGNESIUM 1.6 mg/dL (1.8-2.4); POTASSIUM 3.2 mmol/L (3.5-5.1)
[2017-02-03 06:23] LABS: WHITE BLOOD COUNT (AUTO) 30.6 K/uL (4.3-11.0)
--- NOTE | 2017-02-03 06:23 | NUR ---
SERVICE DESK ASSOCIATE: RECEIVED WBC=30.6, THE SAME WT YESTERDAY. ALREADY ON ATB THERAPY WT NO ASE. NO FEVER NOTED AT THIS TIME. FARA CHARGE NURSE MADE AWARE. PT REMAINED A/O X 3, ON 4L 02 VIA NC WT NO ACUTE DISTRESS. NO C/O PAIN OR EVIDENCE OF DISCOMFORT. ST ON TELE MONITOR WT HR IN LOW 100s. ALL NEEDS MET. SAFETY PRECAUTION NOTED.
[2017-02-03] MEDS: BLOOD SUGAR DIAGNOSTIC 1 EACH STRIP IN SCH ×4 (06:37→23:10)
[2017-02-03] MEDS: METOPROLOL TARTRATE 25 MG TABLET PO SCH ×2 (06:39→18:29)
[2017-02-03] MEDS: VANCOMYCIN 1 GM in IV D5W 250 ML IV SCH (06:45)
[2017-02-03 07:12] LABS: BAND % (MANUAL) 5 % (0.0-5.0); LYMPHOCYTES % (MANUAL) 8 % (16-48); METAMYELOCYTES % 1 % (0-0); MONOCYTES % (MANUAL) 7 % (0-11.0); NEUTROPHILS % (MANUAL) 79 (42-76); PLATELET ESTIMATE ADEQUATE
--- NOTE | 2017-02-03 07:20 | NUR ---
RN INTIAL NOTE RECEIVED PT FROM PM NURSE A/OX3 PT ABLE TO COMMUNICATE. NC @5 L/MIN SPO2 @95%. NO C/O OF PAIN 0/10. F/C INTACT URINE YELLOW IN COLOR . IV R U MIDLINE N/S @ TKO FLUSHED AND PATENT. REPOSITIONED FOR COMFORT AND SAFETY. PT KEPT WARM AND DRY. WILL CONTINUE TO MONITOR CLOSELY.
[2017-02-03 08:00] VITALS: BP 151/78
[2017-02-03] MEDS: PANTOPRAZOLE 40 MG VIAL IV SCH ×2 (09:26→21:30)
[2017-02-03] MEDS: RIFAMPIN 300 MG CAPSULE PO SCH (09:26)
[2017-02-03] MEDS: BOOST GLUCOSE CONTROL VANILLA 237 ML BOX PO SCH ×3 (09:27→17:00)
[2017-02-03] MEDS: NEOMY SULF/BACITRAC ZN/POLY 15 GM TUBE TP SCH (09:27)
[2017-02-03] MEDS: AMLODIPINE BESYLATE 10 MG TABLET PO SCH (09:27)
[2017-02-03] MEDS ORDERED: Magnesium 1GM/D5W 100ML PREMIX 100 ML IV SCH (10:30)
[2017-02-03] MEDS ORDERED: POTASSIUM PHOSPHATE MM 15 MMOL in IV D5W 250 ML IV SCH (10:30)
[2017-02-03] MEDS: POTASSIUM PHOSPHATE MM 7.5 MMOL in IV D5W 100 ML IV SCH ×2 (12:10→16:00)
[2017-02-03] MEDS: INSULIN REGULAR, HUMAN 100 UNIT/ML 3 ML VIAL SQ PRN ×3 (12:19→23:11)
[2017-02-03] MEDS: HYDROCODONE/APAP 5/325MG 1 EACH TABLET PO PRN (12:30)
--- NOTE | 2017-02-03 15:31 | NUR ---
RN NOTE CALLED AND LEFT MESSAGE FOR PHYSICAL EDUCATION INSTRUCTOR PT C/O DIARRHEA WITH BOOST. WILL HOLD AND WAIT FOR CALL BACK TO CHANGE OR SUBSTITUTE.
[2017-02-03 16:00] VITALS: BP 144/82
--- NOTE | 2017-02-03 19:18 | NUR ---
RN CLOSING NOTE A/OX3 PT ABLE TO COMMUNICATE NEEDS AND WANTS. NC @5 L/MIN SPO2 @99%. NO C/O OF PAIN 0/10. F/C INTACT URINE DARK YELLOW IN COLOR . IV R U MIDLINE N/S @ TKO AND INTACT. REPOSITIONED FOR COMFORT AND SAFETY. PT KEPT WARM AND DRY.ALL MEDICATIONS GIVEN AND ALL MD ORDERS CARRIED OUT. REPORT GIVEN TO PM NURSE FOR DANIELA.
--- NOTE | 2017-02-03 19:57 | NUR ---
RT PT REFUSED MEDS AT THIS TIME. NO SOB OR DISTRESS NOTED.
[2017-02-03 20:00] VITALS: BP 149/81
[2017-02-03] MEDS: METRONIDAZOLE 500 MG TABLET PO SCH (21:30)
[2017-02-03] MEDS: LORAZEPAM INJ 2 MG/ML VIAL IV PRN (21:57)
[2017-02-03] MEDS: INSULIN DETEMIR 100 UNIT/ML CARTRIDGE SQ SCH (23:11)
[2017-02-03] MEDS ORDERED: BUMETANIDE INJ 0.25 MG/ML VIAL ONE (23:13)
[2017-02-03] MEDS ORDERED: POTASSIUM CHLORIDE 20 MEQ TAB.PRT.SR PO ONE ×2 (23:14→23:30)
[2017-02-03] MEDS ORDERED: BUMETANIDE INJ 0.25 MG/ML VIAL IV ONE (23:30)
[2017-02-04] MEDS: VANCOMYCIN 1 GM in IV D5W 250 ML IV SCH ×2 (00:23→17:22)
[2017-02-04] MEDS: ALBUTEROL HALF STRENGTH 1.25 MG/3 ML VIAL.NEB NEB SCH ×6 (03:52→23:30)
[2017-02-04] MEDS: IPRATROPIUM NEB FS 0.5 MG/2.5 ML AMPUL.NEB NEB SCH ×6 (03:52→23:30)
[2017-02-04 04:00] VITALS: BP 129/71
[2017-02-04] MEDS: METOPROLOL TARTRATE 25 MG TABLET PO SCH ×2 (05:34→19:00)
[2017-02-04] MEDS: BLOOD SUGAR DIAGNOSTIC 1 EACH STRIP IN SCH ×4 (05:34→23:04)
[2017-02-04] MEDS: METRONIDAZOLE 500 MG TABLET PO SCH ×3 (05:34→21:41)
[2017-02-04] MEDS: INSULIN REGULAR, HUMAN 100 UNIT/ML 3 ML VIAL SQ PRN ×4 (05:37→23:07)
[2017-02-04] MEDS: MEROPENEM 500 MG in IV NS 0.9% 50 ML IV SCH ×2 (05:48→17:16)
[2017-02-04 07:11] LABS: BASOPHILS # (AUTO) 0.1 /CMM (0.0-0.2); BASOPHILS % (AUTO) 0.3 % (0.0-2.0); EOSINOPHILS # (AUTO) 0.4 /CMM (0.0-0.7); EOSINOPHILS % (AUTO) 1.5 % (0.0-6.0); HEMATOCRIT 31 % (39-51); HEMOGLOBIN 10.7 g/dL (13.5-17.5); LYMPHOCYTES # (AUTO) 2.5 /CMM (0.8-4.8); LYMPHOCYTES % (AUTO) 10.3 % (20.0-44.0); MEAN CORPUSCULAR HEMOGLOBIN 31 PG (26.0-33.0); MEAN CORPUSCULAR HGB CONC 34 g/dl (31.0-36.0); MEAN CORPUSCULAR VOLUME 90 fL (80-96); MONOCYTES # (AUTO) 1.1 /CMM (0.1-1.30); MONOCYTES % (AUTO) 4.7 % (2.0-12.0); NEUTROPHILS # (AUTO) 19.9 /CMM (1.8-8.9); NEUTROPHILS % (AUTO) 83.2 % (43.0-81.0); PLATELET COUNT (AUTO) 358 /CMM (150-450); RDW COEFFICIENT OF VARIATION 14.2 (11.5-15.0); RED BLOOD CELL COUNT(AUTO) 3.51 MIL/uL (4.5-6.0); WHITE BLOOD COUNT (AUTO) 23.9 K/uL (4.3-11.0)
--- NOTE | 2017-02-04 07:30 | NUR ---
INITIAL NOTE PATIENT RESTING IN BED A+O X3, BREATHING AND LOC WNL. DENIES PAIN, DENIES SOB. ASSESSED NEEDS, PATIENT CONTENT, SPEECH SLOW. 6L O2 VIA NC. ADRIANO MIDLINE PATENT, NO COMPLICATIONS @ SITE. SKIN WARM AND DRY. VALLE CATH PATENT WITH CLEAR YELLOW URINE. L TOE DRESSING CDI. NOT ABLE TO DETECT BL PEDAL PULSES, FEET WARM. WILL NOTIFY MD. DISCUSSED PLAN OF CARE, PATIENT VERBALIZED UNDERSTANDING. CALL LIGHT IN REACH
[2017-02-04 07:40] LABS: CALCIUM, SERUM 8.5 mg/dL (8.5-10.1); CREATININE 1.5 mg/dL (0.6-1.3); MAGNESIUM 1.7 mg/dL (1.8-2.4); POTASSIUM 3.8 mmol/L (3.5-5.1)
[2017-02-04 08:00] VITALS: BP 137/76
[2017-02-04 08:46] LABS: BAND % (MANUAL) 1 % (0.0-5.0); EOSINOPHILS % (MANUAL) 2 % (0-4); LYMPHOCYTES % (MANUAL) 17 % (16-48); METAMYELOCYTES % 1 % (0-0); MONOCYTES % (MANUAL) 5 % (0-11.0); NEUTROPHILS % (MANUAL) 74 (42-76)
[2017-02-04 08:47] LABS: PLATELET ESTIMATE ADEQUATE
[2017-02-04] MEDS: RIFAMPIN 300 MG CAPSULE PO SCH (08:55)
[2017-02-04] MEDS: ACETAMINOPHEN 325 MG TABLET PO PRN (08:55)
[2017-02-04] MEDS: BOOST GLUCOSE CONTROL VANILLA 237 ML BOX PO SCH ×3 (08:55→16:00)
[2017-02-04] MEDS: PANTOPRAZOLE 40 MG VIAL IV SCH ×2 (08:55→21:41)
[2017-02-04] MEDS: AMLODIPINE BESYLATE 10 MG TABLET PO SCH (08:55)
[2017-02-04] MEDS: NEOMY SULF/BACITRAC ZN/POLY 15 GM TUBE TP SCH (08:56)
[2017-02-04] MEDS ORDERED: SECONDARY IV SET 1 EA INFUS.SET MC ONE (12:12)
[2017-02-04] MEDS: Magnesium 1GM/D5W 100ML PREMIX 100 ML IV SCH ×2 (12:19→13:55)
[2017-02-04 16:00] VITALS: BP 134/77
[2017-02-04] MEDS: HYDROCODONE/APAP 5/325MG 1 EACH TABLET PO PRN (16:04)
--- NOTE | 2017-02-04 19:23 | NUR ---
rn closing notes left patient in stable condition. wound care and adl care rendered. isolation precautions observed. breathing and LOC wnl. call light in reach
[2017-02-04 20:00] VITALS: BP 145/78
[2017-02-04] MEDS: INSULIN DETEMIR 100 UNIT/ML CARTRIDGE SQ SCH (23:07)
[2017-02-04] MEDS: LORAZEPAM INJ 2 MG/ML VIAL IV PRN (23:09)
[2017-02-05] MEDS: IPRATROPIUM NEB FS 0.5 MG/2.5 ML AMPUL.NEB NEB SCH ×6 (03:30→22:41)
[2017-02-05] MEDS: ALBUTEROL HALF STRENGTH 1.25 MG/3 ML VIAL.NEB NEB SCH ×6 (03:30→22:41)
[2017-02-05 04:00] VITALS: BP 136/76
[2017-02-05] MEDS: METRONIDAZOLE 500 MG TABLET PO SCH ×3 (05:46→21:14)
[2017-02-05] MEDS: BLOOD SUGAR DIAGNOSTIC 1 EACH STRIP IN SCH ×3 (05:46→18:22)
[2017-02-05] MEDS: METOPROLOL TARTRATE 25 MG TABLET PO SCH ×2 (05:47→18:05)
[2017-02-05] MEDS: MEROPENEM 500 MG in IV NS 0.9% 50 ML IV SCH ×2 (05:50→17:59)
[2017-02-05 06:43] LABS: BASOPHILS % (AUTO) 0.2 % (0.0-2.0); EOSINOPHILS # (AUTO) 0.4 /CMM (0.0-0.7); EOSINOPHILS % (AUTO) 1.6 % (0.0-6.0); HEMATOCRIT 29 % (39-51); HEMOGLOBIN 9.9 g/dL (13.5-17.5); LYMPHOCYTES # (AUTO) 2.4 /CMM (0.8-4.8); LYMPHOCYTES % (AUTO) 10.8 % (20.0-44.0); MEAN CORPUSCULAR HEMOGLOBIN 31 PG (26.0-33.0); MEAN CORPUSCULAR HGB CONC 34 g/dl (31.0-36.0); MEAN CORPUSCULAR VOLUME 91 fL (80-96); MONOCYTES # (AUTO) 0.7 /CMM (0.1-1.30); MONOCYTES % (AUTO) 3.3 % (2.0-12.0); NEUTROPHILS # (AUTO) 19.1 /CMM (1.8-8.9); NEUTROPHILS % (AUTO) 84.1 % (43.0-81.0); PLATELET COUNT (AUTO) 374 /CMM (150-450); RDW COEFFICIENT OF VARIATION 14.2 (11.5-15.0); RED BLOOD CELL COUNT(AUTO) 3.22 MIL/uL (4.5-6.0); WHITE BLOOD COUNT (AUTO) 22.7 K/uL (4.3-11.0)
[2017-02-05 06:57] LABS: CREATININE 1.5 mg/dL (0.6-1.3); PHOSPHORUS 3.7 mg/dL (2.5-4.9); POTASSIUM 3.9 mmol/L (3.5-5.1)
--- NOTE | 2017-02-05 07:20 | NUR ---
RN INTIAL NOTE PT RECEIVED FROM PM NURSE A/O X3 PT ABLE TO VERBALIZE NEEDS AND WANTS. NO C/O OF PAIN 0/10. PT ON NC 4 L2 NO C/O OF ACUTE SOB. ADRIANO MIDLINE NS @TKO FLUSHED, INTACT AND PATENT. FC INTACT. CALL LIGHT WITH IN REACH AND ALL SAFETY MEASURES IN PLACE. PT KEPT WARM AND DRY. WILL CONTINUE TO MONITOR CLOSELY.
[2017-02-05 08:00] VITALS: BP 93/54
[2017-02-05] MEDS: RIFAMPIN 300 MG CAPSULE PO SCH (08:11)
[2017-02-05] MEDS: PANTOPRAZOLE 40 MG VIAL IV SCH ×2 (08:11→21:14)
[2017-02-05] MEDS: AMLODIPINE BESYLATE 10 MG TABLET PO SCH (08:13)
[2017-02-05] MEDS: NEOMY SULF/BACITRAC ZN/POLY 15 GM TUBE TP SCH (08:17)
[2017-02-05 09:06] LABS: BAND % (MANUAL) 5 % (0.0-5.0); BASOPHILS % (MANUAL) 0 % (0.0-2.0); EOSINOPHILS % (MANUAL) 0 % (0-4); LYMPHOCYTES % (MANUAL) 19 % (16-48); MONOCYTES % (MANUAL) 8 % (0-11.0); NEUTROPHILS % (MANUAL) 66 (42-76); PLATELET ESTIMATE INCREASED; REACTIVE LYMPHOCYTES 2 % (0-0)
[2017-02-05 09:55] VITALS: BP 93/54
[2017-02-05] MEDS ORDERED: IV NS 0.9% 250 ML IV ONE (11:47)
[2017-02-05] MEDS: VANCOMYCIN 1 GM in IV D5W 250 ML IV SCH (12:05)
[2017-02-05 16:00] VITALS: BP 165/94
--- NOTE | 2017-02-05 16:20 | NUR ---
RN NOTE WALKED INTO PT ROOM AND HE HAD VOMITED ON THE FLOOR NO BLOOD PRESENT. ASKED PT IF HE FELT NAUSEATED OR IF HE WAS IN ANY PAIN. PT C/O OF NAUSEA AFTER BREATHING TX. ZOFRAN GIVEN PER PRN ORDER. JUHI URBINA WILL BE NOTIFIED.
[2017-02-05] MEDS: ONDANSETRON HCL/PF 4 MG/2 ML VIAL IVP PRN (16:30)
[2017-02-05] MEDS: IV NS 0.9% 250 ML IV PRN (17:59)
[2017-02-05] MEDS: INSULIN REGULAR, HUMAN 100 UNIT/ML 3 ML VIAL SQ PRN (18:15)
--- NOTE | 2017-02-05 19:24 | NUR ---
RN CLOSING NOTE PT A/O X3 PT RESTING COMFORTABLY IN BED. PT NC 3L 98%. NO C/O ACUTE SOB. NO C/O PAIN 0/10. IV ADRIANO MIDLINE NS @ TKO INTACT AND PATENT. FC INTACT. PT KEPT WARM AND DRY. CONSENT RE-SIGNED AND IN CHART. ALL ORDERS AND MEDICATIONS CARRIED OUT. ALL SAFETY MEASURES IN PLACE. REPORT GIVEN TO PM NURSE FOR DANIELA.
--- NOTE | 2017-02-05 19:30 | NUR ---
MS RN OPENING NOTES: PATIENT IN BED, AOX4, ON O2 AT 3 LPM VIA NC. BREATH SOUNDS CLEAR AT APICES, HOWEVER, NOTED BREATHING TO BE 20-24/MIN. PATIENT DENIES ANY PAIN, DIFFICULTY BREATHING AT THIS TIME. ADRIANO MIDLINE INTACT AND PATENT TO FLUSH. VALLE CATHETER IN PLACE DRAINING CLEAR COLETTE URINE. PATIENT INSTRUCTED TO BE ON NPO POST MIDNIGHT. PROVIDED FOR COMFORT AND SAFETY. WILL CONT TO MONITOR.
[2017-02-05 20:00] VITALS: BP 155/86
--- NOTE | 2017-02-05 21:35 | NUR ---
RN NOTES: PT'S BS CHECKED AT 169 MG/DL, WITH SCHEDULED LEVEMIR [address] BEDOYA IF OK TO GIVE LEVEMIR, PER DR BEDOYA, GIVE HALF DOSE FOR TONIGHT ONLY. ORDER NOTED AND CARRIED OUT. WILL CONT TO MONITOR.
[2017-02-05] MEDS: INSULIN DETEMIR 100 UNIT/ML CARTRIDGE SQ SCH (21:39)
[2017-02-05] MEDS ORDERED: INSULIN DETEMIR 100 UNIT/ML CARTRIDGE SQ ONE (22:00)
--- NOTE | 2017-02-05 22:42 | NUR ---
PT REFUSED BREATHING TX AT THIS TIME. RN NOTIFIED.
[2017-02-05] MEDS: LORAZEPAM INJ 2 MG/ML VIAL IV PRN (23:02)
[2017-02-06] VITALS (7 sets, daily range): BP systolic 123–155; BP diastolic 64–84
[2017-02-06] MEDS: BLOOD SUGAR DIAGNOSTIC 1 EACH STRIP IN SCH ×4 (00:32→17:09)
[2017-02-06] MEDS: INSULIN REGULAR, HUMAN 100 UNIT/ML 3 ML VIAL SQ PRN ×3 (00:33→21:22)
--- NOTE | 2017-02-06 00:33 | NUR ---
RN NOTES: BLOOD SUGAR CHECKED AT 132 MG/DL. NOT COVERED WITH REGULAR INSULIN PATIENT IS ON NPO FOR PROCEDURE.
[2017-02-06] MEDS: ALBUTEROL HALF STRENGTH 1.25 MG/3 ML VIAL.NEB NEB SCH ×6 (02:42→23:30)
[2017-02-06] MEDS: IPRATROPIUM NEB FS 0.5 MG/2.5 ML AMPUL.NEB NEB SCH ×6 (02:42→23:30)
--- NOTE | 2017-02-06 02:42 | NUR ---
PT REFUSED BREATHING TX AT THIS TIME. RN WAS NOTIFIED.
[2017-02-06] MEDS: MEROPENEM 500 MG in IV NS 0.9% 50 ML IV SCH ×2 (05:02→17:09)
[2017-02-06] MEDS: METRONIDAZOLE 500 MG TABLET PO SCH ×3 (05:02→21:18)
[2017-02-06] MEDS: METOPROLOL TARTRATE 25 MG TABLET PO SCH ×2 (06:09→17:36)
[2017-02-06] MEDS ORDERED: IV D5W 250 ML IV ONE (06:12)
[2017-02-06] MEDS ORDERED: VANCOMYCIN 1 GM VIAL ONE (06:12)
[2017-02-06] MEDS: VANCOMYCIN 1 GM in IV D5W 250 ML IV SCH ×2 (06:22→23:46)
--- NOTE | 2017-02-06 06:48 | NUR ---
MS RN CLOSING NOTES: PATIENT IN BED, AOX4, ON O2 AT 3 LPM VIA NC. BREATHING EVEN AND UNLABORED. PATIENT HAS BEEN NOTED TO BE REFUSING BREATHING TREATMENT THROUGH CARTRIDGE LOADING OPERATOR, INFORMED PATIENT OF RISKS AND BENEFITS. PER PATIENT, HIS BREATHING HAS BEEN MUCH BETTER. BREATH SOUNDS CLEAR UPON AUSCULTATION. HOB MAINTAINED ELEVATED. BLOOD SUGAR CHECKED AT 86 MG/DL THIS AM. MAINTAINED PATIENT ON NPO FOR PROCEDURE LATER TODAY. CONSENT FORMS SIGNED FOR L TOE AMPUTATION WITH POSS. PARTIAL FIRST RAY AMPUTATION. DUE MEDS GIVEN. WOUND DRESSING CHANGED OVER L FOOT (GREAT TOE ) AND ANKLE. PROVIDED FOR COMFORT AND SAFETY. WILL ENDORSE TO AM RN FOR DANIELA.
[2017-02-06 06:51] LABS: BASOPHILS % (AUTO) 0.2 % (0.0-2.0); EOSINOPHILS # (AUTO) 0.1 /CMM (0.0-0.7); EOSINOPHILS % (AUTO) 0.7 % (0.0-6.0); HEMATOCRIT 28 % (39-51); HEMOGLOBIN 9.6 g/dL (13.5-17.5); LYMPHOCYTES # (AUTO) 2.1 /CMM (0.8-4.8); MEAN CORPUSCULAR HEMOGLOBIN 30 PG (26.0-33.0); MEAN CORPUSCULAR HGB CONC 34 g/dl (31.0-36.0); MEAN CORPUSCULAR VOLUME 89 fL (80-96); MONOCYTES # (AUTO) 0.7 /CMM (0.1-1.30); MONOCYTES % (AUTO) 3.3 % (2.0-12.0); NEUTROPHILS # (AUTO) 17.6 /CMM (1.8-8.9); NEUTROPHILS % (AUTO) 85.8 % (43.0-81.0); PLATELET COUNT (AUTO) 430 /CMM (150-450); RED BLOOD CELL COUNT(AUTO) 3.18 MIL/uL (4.5-6.0); WHITE BLOOD COUNT (AUTO) 20.6 K/uL (4.3-11.0)
[2017-02-06 06:59] LABS: INR 1.09 (0.87-1.13); PROTHROMBIN TIME 11.7 SECS (9.5-12.7)
--- NOTE | 2017-02-06 07:10 | NUR ---
RN NOTES: RECEIVED PT ON BED, AOX4,RESPIRATION EVEN AND UNLABORED, ON O2 AT 3 LPM VIA NC. NO SOB NOTED, R UA MIDLINE SITE CDI , VALLE CATHETER IN PLACE DRAINING CLEAR COLETTE URINE.PT IS NPO THIS AM FOR SURGERY , PROVIDED FOR COMFORT AND SAFETY.DRESSING TO L FOOD CDI , WILL CONT TO MONITOR PT CLOSELY AND NOTIFY MD FOR ANY SIGNIFICANT CHANGES .
[2017-02-06 07:16] LABS: CALCIUM, SERUM 7.7 mg/dL (8.5-10.1); CREATININE 1.4 mg/dL (0.6-1.3); MAGNESIUM 1.7 mg/dL (1.8-2.4); PHOSPHORUS 3.4 mg/dL (2.5-4.9); POTASSIUM 3.6 mmol/L (3.5-5.1)
[2017-02-06] MEDS: AMLODIPINE BESYLATE 10 MG TABLET PO SCH (08:23)
[2017-02-06] MEDS: RIFAMPIN 300 MG CAPSULE PO SCH (08:23)
[2017-02-06] MEDS: PANTOPRAZOLE 40 MG VIAL IV SCH ×2 (08:23→21:18)
[2017-02-06] MEDS: NEOMY SULF/BACITRAC ZN/POLY 15 GM TUBE TP SCH (09:14)
[2017-02-06] MEDS ORDERED: SECONDARY IV SET 1 EA INFUS.SET MC ONE ×2 (10:05→10:08)
[2017-02-06] MEDS: Magnesium 1GM/D5W 100ML PREMIX 100 ML IV SCH ×2 (10:08→11:41)
[2017-02-06 10:58] LABS: EOSINOPHILS % (MANUAL) 2 % (0-4); LYMPHOCYTES % (MANUAL) 15 % (16-48); METAMYELOCYTES % 1 % (0-0); MONOCYTES % (MANUAL) 6 % (0-11.0); NEUTROPHILS % (MANUAL) 76 (42-76); PLATELET ESTIMATE INCREASED
--- NOTE | 2017-02-06 11:44 | NUR ---
RN NOTES PT TO OR AT THE TIME ,
[2017-02-06] MEDS ORDERED: MIDAZOLAM HCL 2 MG/2ML VIAL ONE (11:51)
[2017-02-06] MEDS ORDERED: FENTANYL PF 100MCG/2ML AMPUL ONE (11:52)
[2017-02-06] MEDS ORDERED: LIDOCAINE HCL/PF 1% 30 ML SDV ONE (12:03)
--- NOTE | 2017-02-06 13:08 | NUR ---
RN NOTES PT BACK FROM OR, STABLE, DRESSING TO L FOOT CDI, CONTINUE TO MONITOR CLOSELY.
--- NOTE | 2017-02-06 18:31 | NUR ---
RN NOTES DRESSING RO L FOOT CDI, PT MEDICATED PER MD ORDER , VSS STABLE, RESPIRATION EVEN AND UNBOWED, NO SIGNIFICANT CHANGES NOTED ON THIS SHIFT .
--- NOTE | 2017-02-06 19:56 | NUR ---
PT REFUSED BREATHING TX AT THIS TIME.
--- NOTE | 2017-02-06 21:10 | NUR ---
RN NOTE RECEIVED REPORT. PT AAOXX4, NO C/O OF PAIN OR DISCOMFORT AT THIS TIME. BREATHING EVEN AND NON-LABORED. R FOOT DRESSING INTACT, CLEAN, NO BLEEDING NOTED. ADRIANO ML INTACT AND PATENT TKO. ALL NEEDS ATTENED TO AT THIS TIME. CALL LIGHT IN REACH, ELLIS CONT TO MONITOR.
[2017-02-06] MEDS: INSULIN DETEMIR 100 UNIT/ML CARTRIDGE SQ SCH (21:21)
--- NOTE | 2017-02-06 23:39 | NUR ---
RN NOTE PT REFUSED BREATHING TX AT THIS TIME STATING "IF I NEED IT, ILL HAVE IT". NO SOB NOTED. NON DIAPHORETIC. WILL CONT TO MONITOR.
[2017-02-07] MEDS: IPRATROPIUM NEB FS 0.5 MG/2.5 ML AMPUL.NEB NEB SCH ×6 (03:12→22:51)
[2017-02-07] MEDS: ALBUTEROL HALF STRENGTH 1.25 MG/3 ML VIAL.NEB NEB SCH ×6 (03:12→22:51)
[2017-02-07 04:00] VITALS: BP 141/66
[2017-02-07] MEDS: BLOOD SUGAR DIAGNOSTIC 1 EACH STRIP IN SCH ×3 (05:53→17:15)
[2017-02-07] MEDS: MEROPENEM 500 MG in IV NS 0.9% 50 ML IV SCH ×2 (05:54→17:15)
[2017-02-07] MEDS: METRONIDAZOLE 500 MG TABLET PO SCH ×3 (05:54→21:46)
[2017-02-07] MEDS: METOPROLOL TARTRATE 25 MG TABLET PO SCH ×2 (05:54→17:29)
[2017-02-07] MEDS: INSULIN REGULAR, HUMAN 100 UNIT/ML 3 ML VIAL SQ PRN ×2 (05:56→17:31)
[2017-02-07] MEDS ORDERED: SECONDARY IV SET 1 EA INFUS.SET MC ONE (06:00)
--- NOTE | 2017-02-07 06:19 | NUR ---
RN NOTE NO SIGNIFICANT CHANGES THIS SHIFT. NO DISTRESS NOTED AT THIS TIME. NO C/O PAIN OR DISCOMFORT. BREATHING EVEN AND NON-LABORED ON ROOM AIR. VSS. ABX INFUSING RIGHT NOW. RIGHT FOOT DRESSING INTACT, NO BLEEDING. ADRIANO ML INTACT AND PATENT, ALL NEEDS ATTENED TO, WILL F/U WITH DAY SHIFT FOR DANIELA.
[2017-02-07 06:38] LABS: BASOPHILS % (AUTO) 0.2 % (0.0-2.0); EOSINOPHILS # (AUTO) 0.3 /CMM (0.0-0.7); EOSINOPHILS % (AUTO) 1.3 % (0.0-6.0); HEMATOCRIT 28 % (39-51); HEMOGLOBIN 9.6 g/dL (13.5-17.5); LYMPHOCYTES # (AUTO) 2.2 /CMM (0.8-4.8); MEAN CORPUSCULAR HEMOGLOBIN 31 PG (26.0-33.0); MEAN CORPUSCULAR HGB CONC 34 g/dl (31.0-36.0); MEAN CORPUSCULAR VOLUME 91 fL (80-96); MONOCYTES # (AUTO) 1.2 /CMM (0.1-1.30); MONOCYTES % (AUTO) 5.8 % (2.0-12.0); NEUTROPHILS # (AUTO) 16.6 /CMM (1.8-8.9); NEUTROPHILS % (AUTO) 81.7 % (43.0-81.0); PLATELET COUNT (AUTO) 474 /CMM (150-450); RDW COEFFICIENT OF VARIATION 13.8 (11.5-15.0); RED BLOOD CELL COUNT(AUTO) 3.12 MIL/uL (4.5-6.0); WHITE BLOOD COUNT (AUTO) 20.3 K/uL (4.3-11.0)
[2017-02-07 07:02] LABS: CALCIUM, SERUM 7.7 mg/dL (8.5-10.1); CREATININE 1.4 mg/dL (0.6-1.3); PHOSPHORUS 2.9 mg/dL (2.5-4.9)
[2017-02-07] MEDS ORDERED: BLOOD SUGAR DIAGNOSTIC 1 EACH STRIP IN SCH (07:30)
[2017-02-07 08:00] VITALS: BP_SYST 115; BP_SYST 116; BP_DIAS 54
--- NOTE | 2017-02-07 08:00 | NUR ---
MS RN NOTE PATIENT IN BED. ALL NEEDS ATTENDED ON 3L NC, NO SOB NOTED WITH RT DOING BREATHING TX AT THIS TIME, WITH F\C TO GRAVITY WITH COLETTE YELLOW COLOR , LT FOOT WITH DRESSING INTACT NO C\OPAIN OR DISCOMFORT , NO ACTIVE BLEEDING NOTED , RT UPPER ARM MIDLINE IN PLACE ,NO S\S INFECTION NOTED, BED IN LOWEST AND LOCKED POSITION ,CALL LIGHT WITHIN REACH , WILL CONT TO MONITOR CLOSELY, PLAN OF CARE DISCUSSED WITH PATIENT
[2017-02-07] MEDS: RIFAMPIN 300 MG CAPSULE PO SCH (08:42)
[2017-02-07] MEDS: AMLODIPINE BESYLATE 10 MG TABLET PO SCH (08:42)
[2017-02-07] MEDS: NEOMY SULF/BACITRAC ZN/POLY 15 GM TUBE TP SCH (08:42)
[2017-02-07] MEDS: PANTOPRAZOLE 40 MG VIAL IV SCH ×2 (08:42→21:47)
--- NOTE | 2017-02-07 09:02 | NUR ---
MS RN NOTE HOLD TO APPLY NEOSPORIN OINT AT THIS TIME , S\P SX WILL ,F\U WITH
--- NOTE | 2017-02-07 09:59 | NUR ---
MS RN NOTE PER DR LIZA BAUER TO REMOVE VALLE , ORDER CARRIED OUT
--- NOTE | 2017-02-07 10:30 | NUR ---
MS RN NOTE F\C REMOVED ORDERED
--- NOTE | 2017-02-07 13:00 | NUR ---
RN NOTE DR ALEMAN NOTIFIED THAT WBC 20.3 IK TO ANIVAL ATB ORDERED Addendum: 02/07/17 at 1610 by FLORENTINO DALE RN OK TO CONT ATB
--- NOTE | 2017-02-07 13:22 | NUR ---
MS RN NOTE ABLE TO URINATE 100 ML OF YELLOW COLETTE URINE WILL MONITOR CLOSELY
--- NOTE | 2017-02-07 15:43 | NUR ---
MS RN NOTE ON BREATHING TX BY RT NOT IN ACUTE DISTRESS ,KEEP CLEAN DRY ABLE URINATE 50 ML ,WILL F/U
[2017-02-07 16:00] VITALS: BP 148/80
--- NOTE | 2017-02-07 16:20 | NUR ---
MS RN NOTE REFUSED BED BATH STATED I AM AM OK , EMPLANED OF IMPORTANCE TO BE CLEAN ,STILL REFUSED , WILL CONT TO MONITOR CLOSELY
[2017-02-07] MEDS: VANCOMYCIN 1 GM in IV D5W 250 ML IV SCH (17:51)
[2017-02-07] MEDS ORDERED: IV NS 0.9% 250 ML IV ONE (19:16)
--- NOTE | 2017-02-07 19:30 | NUR ---
RN NOTES PT AWAKE WATCHING TV ON BED. NO ACUTE RESP DISTRESS DENIES PAIN/ AFEBRILE. ON O2 2LPM VIA NC . PT IS AOX 3 ABLE TO MAKE KNOWN NEEDS. LEFT FOOT DRESSING CLEAN AND DRY. IV SITE ON ADRIANO MIDLINE INTACT AND PATENT. ISOLATION PRECAUTION ALWAYS MET. KEPT PT CLEAN AND DRY. CALL LIGHT KEPT WITHIN EASY REACH. WILL CONTINUE TO MONITOR.
[2017-02-07 20:00] VITALS: BP 150/84
[2017-02-07] MEDS: LORAZEPAM INJ 2 MG/ML VIAL IV PRN (21:50)
[2017-02-07] MEDS: INSULIN DETEMIR 100 UNIT/ML CARTRIDGE SQ SCH (21:59)
[2017-02-08] MEDS: BLOOD SUGAR DIAGNOSTIC 1 EACH STRIP IN SCH ×4 (00:08→17:57)
[2017-02-08] MEDS: INSULIN REGULAR, HUMAN 100 UNIT/ML 3 ML VIAL SQ PRN ×3 (00:10→17:57)
[2017-02-08] MEDS: ALBUTEROL HALF STRENGTH 1.25 MG/3 ML VIAL.NEB NEB SCH ×6 (02:45→23:30)
[2017-02-08] MEDS: IPRATROPIUM NEB FS 0.5 MG/2.5 ML AMPUL.NEB NEB SCH ×6 (02:45→23:30)
[2017-02-08 04:00] VITALS: BP_SYST 126; BP_SYST 127; BP_DIAS 69; BP_DIAS 76
[2017-02-08] MEDS: METRONIDAZOLE 500 MG TABLET PO SCH ×3 (06:19→21:28)
[2017-02-08] MEDS: MEROPENEM 500 MG in IV NS 0.9% 50 ML IV SCH ×2 (06:19→17:44)
[2017-02-08] MEDS: METOPROLOL TARTRATE 25 MG TABLET PO SCH ×2 (06:20→17:48)
--- NOTE | 2017-02-08 06:59 | NUR ---
RN NOTES PT REMAINED IN STABLE CONDITION. ALL DUE MEDICINE TOLERATED WELL. CONTINUE ON STRICTLY OBSERVATION FOR CONTACT ISOLATION. COMPLIANT WITH CARE. ATB CONTINUE ORDERED NO ASE NOTED. AFEBRILE. VS STABLE. ALL NEEDS ATTENDED. KEPT PT CLEAN AND COMFORTABLE IN BED. LEFT FOOT DRESSING KEPT INTACT AND CLEAN. CALL LIGHT KEPT WITHIN EASY REACH. WILL ENDORSED CONTINUITY OF CARE TO AM NURSE.
[2017-02-08 07:24] LABS: BASOPHILS % (AUTO) 0.2 % (0.0-2.0); EOSINOPHILS # (AUTO) 0.1 /CMM (0.0-0.7); EOSINOPHILS % (AUTO) 0.9 % (0.0-6.0); HEMATOCRIT 30 % (39-51); LYMPHOCYTES # (AUTO) 1.6 /CMM (0.8-4.8); LYMPHOCYTES % (AUTO) 10.1 % (20.0-44.0); MEAN CORPUSCULAR HEMOGLOBIN 31 PG (26.0-33.0); MEAN CORPUSCULAR HGB CONC 34 g/dl (31.0-36.0); MEAN CORPUSCULAR VOLUME 91 fL (80-96); MONOCYTES # (AUTO) 0.9 /CMM (0.1-1.30); MONOCYTES % (AUTO) 5.5 % (2.0-12.0); NEUTROPHILS # (AUTO) 13.4 /CMM (1.8-8.9); NEUTROPHILS % (AUTO) 83.3 % (43.0-81.0); PLATELET COUNT (AUTO) 505 /CMM (150-450); RDW COEFFICIENT OF VARIATION 13.6 (11.5-15.0); RED BLOOD CELL COUNT(AUTO) 3.26 MIL/uL (4.5-6.0); WHITE BLOOD COUNT (AUTO) 16.1 K/uL (4.3-11.0)
--- NOTE | 2017-02-08 07:35 | NUR ---
RN INTIAL NOTE RECEIVED PT FROM PM NURSE A/OX4 PT ABLE TO VERBALIZE NEEDS AND WANTS. PT HAS URINAL @ BEDSIDE NO C/O OF PAIN 0/10. IV ADRIANO ML NS @ TKO INTACT FLUSHED AND PATENT. PT ON NC 3L NO ACUTE C/O OF SOB . PT KEPT WARM AND DRY. ALL SAFETY MEASURES IN PLACE. WILL CONTINUE TO MONITOR CLOSELY.
[2017-02-08 07:37] LABS: CREATININE 1.5 mg/dL (0.6-1.3); MAGNESIUM 1.9 mg/dL (1.8-2.4); PHOSPHORUS 3.4 mg/dL (2.5-4.9); POTASSIUM 4.2 mmol/L (3.5-5.1)
[2017-02-08 08:00] VITALS: BP 152/84
[2017-02-08] MEDS: RIFAMPIN 300 MG CAPSULE PO SCH (08:13)
[2017-02-08] MEDS: PANTOPRAZOLE 40 MG VIAL IV SCH ×2 (08:14→21:28)
[2017-02-08] MEDS: AMLODIPINE BESYLATE 10 MG TABLET PO SCH (08:14)
[2017-02-08] MEDS: NEOMY SULF/BACITRAC ZN/POLY 15 GM TUBE TP SCH (08:14)
[2017-02-08] MEDS: VANCOMYCIN 1 GM in IV D5W 250 ML IV SCH (12:05)
[2017-02-08 16:00] VITALS: BP 142/74
--- NOTE | 2017-02-08 19:23 | NUR ---
RN CLOSING NOTE A/OX4 PT ABLE TO VERBALIZE NEEDS AND WANTS. PT HAS URINAL @ BEDSIDE NO C/O OF PAIN 0/10. IV ADRIANO ML NS @ TKO INTACT FLUSHED AND PATENT. PT ON NC 3L NO ACUTE C/O OF SOB . PT HAS BEEN STABLE THROUGHOUT SHIFT. PT KEPT WARM AND DRY. ALL SAFETY MEASURES IN PLACE. ALL MEDICATIONS GIVEN ALL ORDERS CARRIED OUT. REPORT GIVEN TO PM NURSE FOR DANIELA.
--- NOTE | 2017-02-08 19:35 | NUR ---
RN NOTES PT AWAKE WATCHING TV ON BED. NO SOB OR ACUTE RESP DISTRESS. VERBALIZING OF PAIN BUT TOLERABLE PER PATIENT. AFEBRILE. ON O2 2LPM VIA NC . PT IS AOX3 ABLE TO MAKE KNOWN NEEDS. LEFT FOOT WITH DRESSING CLEAN AND DRY, NO ACTIVE BLEEDING SHOWS. IV SITE ON ADRIANO MIDLINE INTACT AND PATENT. CONTINUE WITH ISOLATION PRECAUTION ALWAYS MET. CALL LIGHT KEPT WITHIN EASY REACH. WILL CONTINUE TO MONITOR.
[2017-02-08 20:00] VITALS: BP 153/88
[2017-02-08] MEDS ORDERED: IV SET PRIMARY PUMP SET 1 EA INFUS.SET MC ONE (21:31)
[2017-02-08] MEDS: INSULIN DETEMIR 100 UNIT/ML CARTRIDGE SQ SCH (21:34)
[2017-02-08] MEDS: LORAZEPAM INJ 2 MG/ML VIAL IV PRN (21:37)
[2017-02-09] MEDS: BLOOD SUGAR DIAGNOSTIC 1 EACH STRIP IN SCH ×4 (00:09→17:53)
[2017-02-09] MEDS: INSULIN REGULAR, HUMAN 100 UNIT/ML 3 ML VIAL SQ PRN ×3 (00:11→17:54)
[2017-02-09] MEDS: IPRATROPIUM NEB FS 0.5 MG/2.5 ML AMPUL.NEB NEB SCH ×4 (03:30→15:30)
[2017-02-09] MEDS: ALBUTEROL HALF STRENGTH 1.25 MG/3 ML VIAL.NEB NEB SCH ×4 (03:30→15:30)
[2017-02-09 04:00] VITALS: BP 126/74
[2017-02-09] MEDS ORDERED: SECONDARY IV SET 1 EA INFUS.SET MC ONE (06:09)
[2017-02-09] MEDS: METRONIDAZOLE 500 MG TABLET PO SCH ×3 (06:13→21:54)
[2017-02-09] MEDS: MEROPENEM 500 MG in IV NS 0.9% 50 ML IV SCH (06:14)
[2017-02-09] MEDS: VANCOMYCIN 1 GM in IV D5W 250 ML IV SCH (06:15)
[2017-02-09] MEDS: METOPROLOL TARTRATE 25 MG TABLET PO SCH ×2 (06:25→17:53)
--- NOTE | 2017-02-09 06:28 | NUR ---
RN NOTES PT REFUSED TO HAVE INSULIN 3 UNITS SQ AT THIS TIME, PER PATIENT IT WILL LOWER IT DOWN MORE BECAUSE HIS NOT EATING. RSK AND BENEFIT EXPLAINED. NO S/S OF HYPERGLYCEMIA NOR HYPOTENSION OFFERED 3X PT STILL REFUSED. WILL CONTINUE TO MONITOR.
[2017-02-09 08:00] VITALS: BP 144/78
[2017-02-09 08:04] LABS: CALCIUM, SERUM 7.9 mg/dL (8.5-10.1); CREATININE 1.5 mg/dL (0.6-1.3); POTASSIUM 4.3 mmol/L (3.5-5.1)
[2017-02-09] MEDS: PANTOPRAZOLE 40 MG VIAL IV SCH ×2 (08:45→21:54)
[2017-02-09] MEDS: NEOMY SULF/BACITRAC ZN/POLY 15 GM TUBE TP SCH (08:45)
[2017-02-09] MEDS: RIFAMPIN 300 MG CAPSULE PO SCH (08:45)
[2017-02-09] MEDS: AMLODIPINE BESYLATE 10 MG TABLET PO SCH (08:45)
--- NOTE | 2017-02-09 09:17 | NUR ---
MS RN NOTES UNABLE TO APPLY NEOSPORIN OINTMENT PATIENT IS SP TOE AMPUTATION TWO DAYS AGO AND THERE ARE NO ORDERS FOR DRESSING CHANGES FROM THE MD.
[2017-02-09 16:00] VITALS: BP 148/88
[2017-02-09] MEDS ORDERED: IPRATROPIUM NEB FS 0.5 MG/2.5 ML AMPUL.NEB NEB PRN (16:00)
[2017-02-09] MEDS ORDERED: ALBUTEROL HALF STRENGTH 1.25 MG/3 ML VIAL.NEB NEB PRN (16:00)
[2017-02-09] MEDS: LEVOFLOXACIN (500MG) 500 MG TABLET PO SCH (17:53)
--- NOTE | 2017-02-09 18:34 | NUR ---
MS RN CLOSING NOTES NO SIGNIFICANT CHANGES IN PATIENT CONDITION THROUGHOUT THE SHIFT. NO SOB OR DISTRESS NOTED AT THIS TIME. PATIENT DENIES PAIN AT THIS TIME. BED IN A LOW POSITION, CALL LIGHT WITHIN PATIENT REACH. WILL ENDORSE FOR DANIELA.
[2017-02-09 20:00] VITALS: BP 139/79
[2017-02-09] MEDS: INSULIN DETEMIR 100 UNIT/ML CARTRIDGE SQ SCH (22:02)
[2017-02-09] MEDS: LORAZEPAM INJ 2 MG/ML VIAL IV PRN (22:04)
[2017-02-10] MEDS: VANCOMYCIN 1 GM in IV D5W 250 ML IV SCH ×2 (00:05→17:29)
[2017-02-10] MEDS: INSULIN REGULAR, HUMAN 100 UNIT/ML 3 ML VIAL SQ PRN ×2 (00:10→17:45)
[2017-02-10] MEDS: BLOOD SUGAR DIAGNOSTIC 1 EACH STRIP IN SCH ×5 (00:10→23:13)
[2017-02-10 04:00] VITALS: BP 122/77
[2017-02-10] MEDS: METRONIDAZOLE 500 MG TABLET PO SCH ×3 (06:16→22:18)
[2017-02-10] MEDS: METOPROLOL TARTRATE 25 MG TABLET PO SCH ×2 (06:19→17:30)
[2017-02-10 06:58] LABS: CALCIUM, SERUM 8.1 mg/dL (8.5-10.1); CREATININE 1.6 mg/dL (0.6-1.3); POTASSIUM 4.5 mmol/L (3.5-5.1)
--- NOTE | 2017-02-10 07:01 | NUR ---
RN NOTES PT REMAINED IN STABLE CONDITION ASLEEP WELL. AFEBRILE. NO ACUTE RESP DISTRESS IN RA SATING 95%. USED URINAL FOR BLADDER. VS STABLE. NO SIGNIFICANT CHANGES NOTED. PAIN TOLERABLE WITH NON PHARMACOLOGICAL INTERVENTION. KEPT PT CLEAN AD DRY. NEEDS ATTENDED. CALL LIGHT KEPT WITHIN EASY REACH. WILL CONTINUE TO MONITOR.
[2017-02-10 08:00] VITALS: BP 116/73
--- NOTE | 2017-02-10 08:00 | NUR ---
MS1/RN AM SHIFT INITIAL NOTES Received pt awake sitting in bed. Pt A/O x 4, denies pain or any other symptoms. No acute change of condition or active bleeding noted. Pt 2L O2 via N/C saturating @ 96%, lung sound clear. IV site flushed, patent with no s/s of infection, SL. Pt is comfortable at this time. Scheduled AM meds to be given. CL within reached, safety maintained and isolation observed. On going monitoring.
[2017-02-10] MEDS: PANTOPRAZOLE 40 MG VIAL IV SCH ×2 (08:39→22:19)
[2017-02-10] MEDS: NEOMY SULF/BACITRAC ZN/POLY 15 GM TUBE TP SCH (08:39)
[2017-02-10] MEDS: AMLODIPINE BESYLATE 10 MG TABLET PO SCH (08:39)
[2017-02-10 12:40] LABS: BASOPHILS % (AUTO) 0.5 % (0.0-2.0); EOSINOPHILS # (AUTO) 0.1 /CMM (0.0-0.7); EOSINOPHILS % (AUTO) 1.4 % (0.0-6.0); HEMATOCRIT 27 % (39-51); HEMOGLOBIN 8.8 g/dL (13.5-17.5); LYMPHOCYTES # (AUTO) 2.4 /CMM (0.8-4.8); LYMPHOCYTES % (AUTO) 23.6 % (20.0-44.0); MEAN CORPUSCULAR HEMOGLOBIN 30 PG (26.0-33.0); MEAN CORPUSCULAR HGB CONC 33 g/dl (31.0-36.0); MEAN CORPUSCULAR VOLUME 92 fL (80-96); MONOCYTES # (AUTO) 0.7 /CMM (0.1-1.30); MONOCYTES % (AUTO) 7.1 % (2.0-12.0); NEUTROPHILS # (AUTO) 6.7 /CMM (1.8-8.9); NEUTROPHILS % (AUTO) 67.4 % (43.0-81.0); PLATELET COUNT (AUTO) 704 /CMM (150-450); RDW COEFFICIENT OF VARIATION 13.9 (11.5-15.0); RED BLOOD CELL COUNT(AUTO) 2.94 MIL/uL (4.5-6.0)
[2017-02-10 16:00] VITALS: BP 142/77
--- NOTE | 2017-02-10 16:00 | NUR ---
MS1/RN AFTERNOON ROUNDS No change of condition. Pt is comfortable. Monitoring continued.
[2017-02-10] MEDS: LEVOFLOXACIN (500MG) 500 MG TABLET PO SCH (17:29)
--- NOTE | 2017-02-10 19:40 | NUR ---
RN INITIAL NOTE RECEIVED PT IN NO ACUTE DISTRESS IN BED. PT IS A/O X 4 AND ABLE TO MAKE NEEDS KNOWN. PT IS ON O2 VIA NC @ 2LPM AND TOLERATING WELL WITH O2 SAT @ 96%. PT DENIES ANY SOB, DIFFICULTY BREATHING OR PAIN AT THIS TIME. PT HAS IV 20G IN THE RIGHT HAND THAT IS CLEAN DRY INTACT AND PATENT WITH SALINE FLUSH. PT HAS BANDAGE ON LEFT FOOT S/P GREAT TOE AMPUTATION. PT IS PARTIAL WEIGHT BEARING ON LEFT HEEL. BED IN LOW LOCK POSITION WITH RIALS UP X 2. CALL LIGHT WITHIN REACH AND ALL SAFETY MEASURES ENSURED AND CARRIED OUT. WILL CONTINUE TO MONITOR PT.
--- NOTE | 2017-02-10 19:51 | NUR ---
MS1/RN AM SHIFT END NOTES No acute change of condition noted during the shift. Need met. Pt endorsed to PM nurse to continue care. CL within reached and safety maintained.
[2017-02-10 20:00] VITALS: BP 135/78
[2017-02-10] MEDS: INSULIN DETEMIR 100 UNIT/ML CARTRIDGE SQ SCH (23:11)
[2017-02-10] MEDS: LORAZEPAM INJ 2 MG/ML VIAL IV PRN (23:22)
[2017-02-11 04:00] VITALS: BP 129/75
[2017-02-11] MEDS: METRONIDAZOLE 500 MG TABLET PO SCH ×3 (05:35→21:05)
[2017-02-11] MEDS: METOPROLOL TARTRATE 25 MG TABLET PO SCH ×2 (05:37→18:06)
[2017-02-11] MEDS: BLOOD SUGAR DIAGNOSTIC 1 EACH STRIP IN SCH ×3 (05:40→18:01)
[2017-02-11 05:48] LABS: BASOPHILS % (AUTO) 0.4 % (0.0-2.0); EOSINOPHILS # (AUTO) 0.1 /CMM (0.0-0.7); EOSINOPHILS % (AUTO) 1.3 % (0.0-6.0); HEMATOCRIT 28 % (39-51); HEMOGLOBIN 9.4 g/dL (13.5-17.5); LYMPHOCYTES # (AUTO) 2.4 /CMM (0.8-4.8); LYMPHOCYTES % (AUTO) 20.1 % (20.0-44.0); MEAN CORPUSCULAR HEMOGLOBIN 31 PG (26.0-33.0); MEAN CORPUSCULAR HGB CONC 34 g/dl (31.0-36.0); MEAN CORPUSCULAR VOLUME 91 fL (80-96); MONOCYTES # (AUTO) 0.7 /CMM (0.1-1.30); MONOCYTES % (AUTO) 6.1 % (2.0-12.0); NEUTROPHILS # (AUTO) 8.5 /CMM (1.8-8.9); NEUTROPHILS % (AUTO) 72.1 % (43.0-81.0); PLATELET COUNT (AUTO) 749 /CMM (150-450); RDW COEFFICIENT OF VARIATION 13.9 (11.5-15.0); RED BLOOD CELL COUNT(AUTO) 3.03 MIL/uL (4.5-6.0); WHITE BLOOD COUNT (AUTO) 11.8 K/uL (4.3-11.0)
[2017-02-11 06:25] LABS: CALCIUM, SERUM 8.2 mg/dL (8.5-10.1); CREATININE 1.7 mg/dL (0.6-1.3); POTASSIUM 4.3 mmol/L (3.5-5.1)
--- NOTE | 2017-02-11 06:43 | NUR ---
RN [id number] NOTE PT REMAINS IN NO ACUTE DISTRESS IN BED. PT DID NOT HAVE ANY SIGNIFICANT CHANGE IN CONDITION DURING SHIFT. WILL ENDORSE CARE TO AM RN FOR CONTINUITY OF CARE.
[2017-02-11 08:00] VITALS: BP 118/62
--- NOTE | 2017-02-11 08:00 | NUR ---
MS1/RN AM SHIFT INITIAL NOTES Received pt awake sitting in bed. Pt A/O x 4, No acute change of condition or active bleeding noted. Pt room air, saturating @ 99%, lung sound clear. IV site flushed, patent with no s/s of infection, SL. Left foot surgical site dressing intact and dry. Pt is comfortable at this time. Scheduled AM meds to be given. CL within reached, safety maintained and isolation observed. On going monitoring.
[2017-02-11] MEDS: AMLODIPINE BESYLATE 10 MG TABLET PO SCH (08:15)
[2017-02-11] MEDS: PANTOPRAZOLE 40 MG VIAL IV SCH ×2 (08:15→21:05)
[2017-02-11] MEDS: NEOMY SULF/BACITRAC ZN/POLY 15 GM TUBE TP SCH (08:16)
--- NOTE | 2017-02-11 12:00 | NUR ---
MS1/RN ROUNDS - DR. JESSIKA ROSEN CHANGE DRESSING OF AMPUTATED LEFT BIG TOE. NO ACUTE CHANGE OF CONDITION. MONITORING CONTINUED.
[2017-02-11] MEDS: VANCOMYCIN 1 GM in IV D5W 250 ML IV SCH (12:09)
[2017-02-11 16:00] VITALS: BP 132/78
--- NOTE | 2017-02-11 16:00 | NUR ---
MS1/RN AFTERNOON ROUNDS NO CHANGE OF CONDITION. PT IS COMFORTABLE. MONITORING CONTINUED.
[2017-02-11] MEDS: INSULIN REGULAR, HUMAN 100 UNIT/ML 3 ML VIAL SQ PRN ×2 (18:05→22:57)
[2017-02-11] MEDS: LEVOFLOXACIN (500MG) 500 MG TABLET PO SCH (18:06)
--- NOTE | 2017-02-11 19:28 | NUR ---
MS1/RN AM SHIFT END NOTES NO ACUTE CHANGE OF CONDITION NOTED DURING THE SHIFT. NEEDS MET. IV SITE, INTACT & PATENT, NO S/S OF INFECTION. PT ENDORSED TO PM NURSE TO CONTINUE CARE. PT'S DAUGHTER AT BEDSIDE. CL WITHIN REACHED, SAFETY MAINTAINED AND ISOLATION OBSERVED.
[2017-02-11 20:00] VITALS: BP 117/63
[2017-02-11] MEDS: LORAZEPAM INJ 2 MG/ML VIAL IV PRN (22:04)
[2017-02-11] MEDS: INSULIN DETEMIR 100 UNIT/ML CARTRIDGE SQ SCH (22:56)
[2017-02-12] MEDS: BLOOD SUGAR DIAGNOSTIC 1 EACH STRIP IN SCH ×4 (00:13→17:17)
[2017-02-12 04:00] VITALS: BP 116/67
[2017-02-12] MEDS: VANCOMYCIN 1 GM in IV D5W 250 ML IV SCH (05:37)
[2017-02-12] MEDS: METRONIDAZOLE 500 MG TABLET PO SCH ×3 (05:38→21:09)
[2017-02-12] MEDS: METOPROLOL TARTRATE 25 MG TABLET PO SCH ×2 (05:38→18:30)
--- NOTE | 2017-02-12 07:30 | NUR ---
RN MS NOTES PT AWAKE, ALERT AND ORIENTED, NO COMPLAINT OF PAIN, BREATHING PATTERN NORMAL, CALL LIGHT WITHIN REACH, AMBULATES WITH A WALKER, WITH STEADY GAIT, NEEDS ATTENDED.
[2017-02-12 08:00] VITALS: BP 92/64
[2017-02-12 08:31] LABS: BASOPHILS # (AUTO) 0.1 /CMM (0.0-0.2); EOSINOPHILS # (AUTO) 0.1 /CMM (0.0-0.7); EOSINOPHILS % (AUTO) 0.6 % (0.0-6.0); HEMATOCRIT 26 % (39-51); HEMOGLOBIN 8.6 g/dL (13.5-17.5); LYMPHOCYTES # (AUTO) 2.4 /CMM (0.8-4.8); LYMPHOCYTES % (AUTO) 19.1 % (20.0-44.0); MEAN CORPUSCULAR HEMOGLOBIN 31 PG (26.0-33.0); MEAN CORPUSCULAR HGB CONC 34 g/dl (31.0-36.0); MEAN CORPUSCULAR VOLUME 91 fL (80-96); MONOCYTES # (AUTO) 0.7 /CMM (0.1-1.30); NEUTROPHILS # (AUTO) 9.1 /CMM (1.8-8.9); NEUTROPHILS % (AUTO) 73.3 % (43.0-81.0); PLATELET COUNT (AUTO) 770 /CMM (150-450); RED BLOOD CELL COUNT(AUTO) 2.82 MIL/uL (4.5-6.0); WHITE BLOOD COUNT (AUTO) 12.4 K/uL (4.3-11.0)
[2017-02-12] MEDS: PANTOPRAZOLE 40 MG VIAL IV SCH ×2 (08:35→21:09)
[2017-02-12] MEDS: NEOMY SULF/BACITRAC ZN/POLY 15 GM TUBE TP SCH (08:35)
[2017-02-12 08:44] LABS: CALCIUM, SERUM 8.2 mg/dL (8.5-10.1); CREATININE 1.8 mg/dL (0.6-1.3); POTASSIUM 5.4 mmol/L (3.5-5.1)
[2017-02-12] MEDS: AMLODIPINE BESYLATE 10 MG TABLET PO SCH (09:00)
[2017-02-12] MEDS: INSULIN REGULAR, HUMAN 100 UNIT/ML 3 ML VIAL SQ PRN ×3 (12:30→22:59)
--- NOTE | 2017-02-12 13:00 | NUR ---
RN MS NOTES PT IN BED, AWAKE, ALERT AND ORIENTED, WATCHING TV, DENIES PAIN, NOT IN DISTRESS, CALL LIGHT WITHIN REACH, SEEN BY MD, NEEDS ATTENDED.
[2017-02-12 16:00] VITALS: BP 116/76
[2017-02-12] MEDS: LEVOFLOXACIN (500MG) 500 MG TABLET PO SCH (17:17)
--- NOTE | 2017-02-12 18:35 | NUR ---
RN MS NOTES PT IN BED, AWAKE, ALERT AND ORIENTED, WATCHING TV, NOT IN PAIN OR DISTRESS, TOLERATING CURRENT DIET WELL, LEFT FOOT DRESSING CHANGED BY MD, BLOOD SUGAR CHECKED, INSULIN GIVEN PER SLIDING SCALE ORDERED, ALL NEEDS ATTENDED.
[2017-02-12 20:00] VITALS: BP 148/79
[2017-02-12] MEDS: HYDROCODONE/APAP 5/325MG 1 EACH TABLET PO PRN (21:18)
[2017-02-12] MEDS: LORAZEPAM INJ 2 MG/ML VIAL IV PRN (22:49)
[2017-02-12] MEDS: INSULIN DETEMIR 100 UNIT/ML CARTRIDGE SQ SCH (22:58)
[2017-02-13] MEDS: BLOOD SUGAR DIAGNOSTIC 1 EACH STRIP IN SCH ×3 (00:27→11:32)
[2017-02-13] MEDS: VANCOMYCIN 1 GM in IV D5W 250 ML IV SCH (00:32)
[2017-02-13] MEDS ORDERED: SECONDARY IV SET 1 EA INFUS.SET MC ONE (03:58)
[2017-02-13] MEDS ORDERED: IV SET PRIMARY PUMP SET 1 EA INFUS.SET MC ONE (03:58)
[2017-02-13 04:00] VITALS: BP 103/69
[2017-02-13 05:19] VITALS: BP 103/69
[2017-02-13] MEDS: METRONIDAZOLE 500 MG TABLET PO SCH ×2 (05:35→12:41)
[2017-02-13] MEDS: METOPROLOL TARTRATE 25 MG TABLET PO SCH (05:35)
[2017-02-13] MEDS: INSULIN REGULAR, HUMAN 100 UNIT/ML 3 ML VIAL SQ PRN ×2 (06:32→11:34)
[2017-02-13 07:36] LABS: BASOPHILS # (AUTO) 0.1 /CMM (0.0-0.2); BASOPHILS % (AUTO) 0.9 % (0.0-2.0); EOSINOPHILS # (AUTO) 0.1 /CMM (0.0-0.7); EOSINOPHILS % (AUTO) 1.3 % (0.0-6.0); HEMATOCRIT 26 % (39-51); HEMOGLOBIN 8.7 g/dL (13.5-17.5); LYMPHOCYTES # (AUTO) 2.5 /CMM (0.8-4.8); MEAN CORPUSCULAR HEMOGLOBIN 31 PG (26.0-33.0); MEAN CORPUSCULAR HGB CONC 33 g/dl (31.0-36.0); MEAN CORPUSCULAR VOLUME 91 fL (80-96); MONOCYTES # (AUTO) 0.7 /CMM (0.1-1.30); MONOCYTES % (AUTO) 6.5 % (2.0-12.0); NEUTROPHILS % (AUTO) 67.3 % (43.0-81.0); PLATELET COUNT (AUTO) 803 /CMM (150-450); RED BLOOD CELL COUNT(AUTO) 2.85 MIL/uL (4.5-6.0); WHITE BLOOD COUNT (AUTO) 10.4 K/uL (4.3-11.0)
[2017-02-13 08:00] VITALS: BP 130/76
[2017-02-13 08:01] LABS: CALCIUM, SERUM 8.2 mg/dL (8.5-10.1); CREATININE 1.7 mg/dL (0.6-1.3); POTASSIUM 5.2 mmol/L (3.5-5.1)
[2017-02-13 08:32] VITALS: BP 130/76
[2017-02-13] MEDS: AMLODIPINE BESYLATE 10 MG TABLET PO SCH (08:32)
[2017-02-13] MEDS: NEOMY SULF/BACITRAC ZN/POLY 15 GM TUBE TP SCH (09:00)
[2017-02-13] MEDS: PANTOPRAZOLE 40 MG VIAL IV SCH (09:08)
--- NOTE | 2017-02-13 09:30 | NUR ---
m/s wall insulation sprayer: notes surgical dressing to left great toe intact, clean, and dry. last dressing change done by human resource assistant yesterday. will continue to monitor.
[2017-02-13] MEDS ORDERED: AMLO10TA2 PO (10:59)
[2017-02-13] MEDS ORDERED: HYDR-3326 PO (10:59)
[2017-02-13] MEDS ORDERED: RXVAN XX (10:59)
[2017-02-13] MEDS ORDERED: METO25TA20 PO (10:59)
[2017-02-13] MEDS ORDERED: LEVO500T15 PO (10:59)
--- NOTE | 2017-02-13 12:00 | NUR ---
m/s media marketing coordinator: notes f/u made to dr. taylor re: s/p left great toe amputation with tx order to apply xeroform, abdominal pad, kerlix, and then wrap with lisa wrap with burn netting; keep dressing dry and intact and to f/u with pmd/general service technician and inform pt that he needs to do daily dressing change if unable to provide nurse due to insurance. pt made aware and also made aware that bruce (case management) will check with his medical insurance re: nurse visit for wound tx; also arranging his antibiotic at home. pt request for a taxi. pt verbalized understanding. will continue to monitor.
--- NOTE | 2017-02-13 12:30 | NUR ---
m/s gunite nozzle operator: notes bruce (case management) and making arrangement re: iv antibiotics at home. bruce will f/u with medical re: home health nurse for dressing change if not pt aware that he needs to do his dressing change daily and to f/u with territory sales executive and primary medical doctor. pt verbalized understanding. pt having lunch at this time. will continue to monitor.
--- NOTE | 2017-02-13 14:45 | NUR ---
m/s bran mixer: notes f/u made to bruce and informed me that we are still awaiting for authorization from his insurance and to inform pt to wait a little bit more as stated. pt made aware.
--- NOTE | 2017-02-13 15:44 | NUR ---
m/s surveillance manager: notes tanvir (pharmacy) here and spoke to case management and nurse and will be back to talk to pt; still awaiting from pt's insurance.
--- NOTE | 2017-02-13 15:55 | NUR ---
m/s after school program coordinator: notes fabriceam (pharmacy) personnel at bedside and talking to pt at this time.
--- NOTE | 2017-02-13 16:15 | NUR ---
m/s human projectile: notes pt anxiously wanting to go home. per tanvir (personnel) still arranging home health nurse visit, but it wouldn't be a problem as stated. pt refused taxi at this time and called a friend to pick him up. discharged instructions with prescriptions given to pt and verbalized understanding. instructed pt the need for picc line placement in 3-5 days as outpatient and pt verbalized understanding. bruce (case management) aware. pt to leave with a midline.
--- NOTE | 2017-02-13 16:45 | NUR ---
m/s adding machine servicer: discharged discharged home accompanied by friend via private car in stable condition with all valuables and d'c papers.
[2017-02-14] MEDS ORDERED: VANCOMYCIN 1 GM in IV D5W 250 ML IV SCH ×2
== END 2017-02-13 16:42 | disposition home health service (06) | DRG 710 ==
LOC: ER 15:11 → TELE1 17:43 → TELE-TD 18:05 → TELE1 01-30 11:47 → MEDSG1 02-03 10:30
PROVIDERS: ADMIT Student in an Organized Health Care Education/Training Program; ATTEND Student in an Organized Health Care Education/Training Program
PROC: 05H533Z Insertion of Infusion Device into Right Subclavian Vein, Percutaneous Approach (ICD-10-PCS; 2017-01-31)
PROC: 0DB68ZX Excision of Stomach, Via Natural or Artificial Opening Endoscopic, Diagnostic (ICD-10-PCS; 2017-01-31)
PROC: 0Y6Q0Z0 Detachment at Left 1st Toe, Complete, Open Approach (ICD-10-PCS; principal; 2017-02-07)
DX: A41.9 Sepsis, unspecified organism (principal); N17.0 Acute kidney failure with tubular necrosis; J96.01 Acute respiratory failure with hypoxia; I50.31 Acute diastolic (congestive) heart failure; J15.9 Unspecified bacterial pneumonia; K22.6 Gastro-esophageal laceration-hemorrhage syndrome; I13.0 Hypertensive heart and chronic kidney disease with heart failure and stage 1 through stage 4 chronic kidney disease, or unspecified chronic kidney disease; I69.354 Hemiplegia and hemiparesis following cerebral infarction affecting left non-dominant side; L03.116 Cellulitis of left lower limb; L97.529 Non-pressure chronic ulcer of other part of left foot with unspecified severity; E11.22 Type 2 diabetes mellitus with diabetic chronic kidney disease; E11.621 Type 2 diabetes mellitus with foot ulcer; E78.5 Hyperlipidemia, unspecified; I25.10 Atherosclerotic heart disease of native coronary artery without angina pectoris; R65.20 Severe sepsis without septic shock; N18.9 Chronic kidney disease, unspecified; E11.65 Type 2 diabetes mellitus with hyperglycemia; G62.9 Polyneuropathy, unspecified; Z87.891 Personal history of nicotine dependence; E11.69 Type 2 diabetes mellitus with other specified complication; M86.8X7 Other osteomyelitis, ankle and foot; B95.62 Methicillin resistant Staphylococcus aureus infection as the cause of diseases classified elsewhere; D64.9 Anemia, unspecified; E11.42 Type 2 diabetes mellitus with diabetic polyneuropathy; E11.51 Type 2 diabetes mellitus with diabetic peripheral angiopathy without gangrene; E11.622 Type 2 diabetes mellitus with other skin ulcer; E66.9 Obesity, unspecified; F10.10 Alcohol abuse, uncomplicated; K29.70 Gastritis, unspecified, without bleeding
CPT/HCPCS: 36415; 36600; 71010-TC; 71250-TC; 73620-TC; 73630-TC; 73718-TC; 80048-TC; 80061-TC; 80076-TC; 80202-TC; 81000-TC; 82150-TC; 82962-TC; 83605-TC; 83690-TC; 83735-TC; 83880; 84100-TC; 84443-TC; 84484-TC; 85025-TC; 85610-TC; 85730-TC; 86701; 86850-TC; 87040-TC; 87070-TC; 87075-TC; 87081-TC; 87086-TC; 87186-TC; 88305-TC; 88311-TC; 88312-TC; 88313-TC; 88342; 93307-TC; 93925-TC; 94799-TC; A4216; A4606; A6253; A6402; A6403; C9113; J0696; J1815; J1940; J2060; J2185; J2250; J2405; J2543; J2704; J3010; J3370; J3475; J3490; J7030; J7040; J7050; J7060; Z7610

== ENCOUNTER 2017-02-15 12:52 | Emergency (ER) | payer OTHER ==
[~2017-02-15] VITALS: Ht 170.2 cm; Wt 70.3 kg
[~2017-02-15 12:52] MED LIST changes: +AMLO10TA2 PO; +ASPI81TA2 PO; +GABA-536 PO; +HYDR-3326 PO; +LEVO500T15 PO; +METF500T4 PO; +METO25TA20 PO; +RXVAN XX
--- NOTE | 2017-02-15 13:05 | NUR ---
PT BIB [facility] C/O LEAKING PICC LINE. PT WAS TOLD BY HOME HEALTH NURSE TO COME TO THE ER FOR EVAL. 2 WKS S/P L FIRST TOE AMPUTATION, RECEIVING IV ABX AT HOME; WAS DISCHARGED ON MONDAY FROM [facility]. NO OTHER COMPLAINTS. IN ER BED 09 ON MONITOR. PT WAS NOTED TO BE ST PER [facility]. RESP EVEN UNLABORED. NAD NOTED.
--- NOTE | 2017-02-15 14:35 | NUR ---
CALLED NURSING CALL OR CONTACT CENTRE OPERATOR FOR PICISABEL RN
--- NOTE | 2017-02-15 15:00 | NUR ---
PT RESTIG COMFORTABLY IN BED, NAD NOTED.
--- NOTE | 2017-02-15 15:21 | NUR ---
SPOKE WITH MICAELA PICC RN. HE IS ON HIS WAY.
--- NOTE | 2017-02-15 15:29 | NUR ---
CALLED K[employer] FOR MEAL TRAY. PER PT, HE TAKES 5 UNITS REGULAR INSULIN SQ WITH MEALS. DR MARKS NOTIFIED; ORDER RECEIVED. WILL ADMINISTER ONCE MEAL TRAY ARRIVES.
[2017-02-15] MEDS ORDERED: INSULIN REGULAR, HUMAN 100 UNIT/ML 10 ML VIAL SQ ONE (15:30)
[2017-02-15] MEDS ORDERED: INSULIN REGULAR, HUMAN 100 UNIT/ML 10 ML VIAL ONE (15:48)
--- NOTE | 2017-02-15 15:54 | NUR ---
PROVIDED WITH MEAL TRAY. INSULIN ADMINISTERED PER MD ORDER.
--- NOTE | 2017-02-15 17:18 | NUR ---
MICAELA, PICC RN, AT BEDSIDE
--- NOTE | 2017-02-15 17:51 | NUR ---
ADRIANO PICC COMPLETED AND DRESSED BY MICAELA PICC MIRIAN
--- NOTE | 2017-02-15 18:08 | NUR ---
CALLED PATIENT A CAB
--- NOTE | 2017-02-15 18:13 | NUR ---
Patient discharged to home in stable condition. Written and verbal after care instructions given. Patient verbalizes understanding of instruction. AMBULATORY WITH STEADY GAIT.
[2017-02-15 18:14] VITALS: BP 160/85
== END 2017-02-15 18:14 | disposition home or self-care (01) ==
LOC: ER 12:53
DX: Z45.2 Encounter for adjustment and management of vascular access device (principal); T82.594A Other mechanical complication of infusion catheter, initial encounter; Z89.412 Acquired absence of left great toe; Z86.73 Personal history of transient ischemic attack (TIA), and cerebral infarction without residual deficits; I10 Essential (primary) hypertension; E11.9 Type 2 diabetes mellitus without complications; K85.90 Acute pancreatitis without necrosis or infection, unspecified; Z79.82 Long term (current) use of aspirin
CPT/HCPCS: 96372; 99283; A4606; A6253; J1815; Z7610

== ENCOUNTER 2017-02-21 19:10 | Emergency (ER) | payer OTHER ==
[~2017-02-21] VITALS: Ht 165.1 cm; Wt 79.8 kg
[~2017-02-21 19:10] MED LIST changes: -AMLO2.5T PO; -ATOR40TA PO; -FLUD0.1T PO; -INSU100V7 SQ; -LISI-607 PO; -METO10TA3 PO; -NORT10CA PO; -OXYC30TA2 PO; -PANT40TA2 PO; -[UNRECOGNIZED DRUG - CODE] PO
--- NOTE | 2017-02-21 19:25 | NUR ---
PT BIB [facility] AND TAKEN TO ROOM #4. PT IS AA&O X4. PT STATED THAT HE HAD HIS LEFT GREAT TOE AMP[facility] 2 WKS [facility]GO [facility]. PT STATED THAT HIS FOOT/LLE IS EDEMATOUS AND PT IS CONCERNED THAT IT MIGHT BE INFECTED. PT HAS STICHES IN PLACE AND STATED THAT THEY NEED TO BE REMOVED. ALICE SEBASTIAN IS AT THE BEDSIDE EVALUATING THE PT.
[2017-02-21] MEDS ORDERED: HYDROCODONE/APAP 10/325MG 1 EA TABLET PO ONE (19:30)
--- NOTE | 2017-02-21 19:36 | NUR ---
CALLED DR. GRANADOS, WOUND DR. SY: PT. VOICE MESSAGE LEFT.
[2017-02-21] MEDS ORDERED: HYDROCODONE/APAP 10/325MG 1 EA TABLET ONE (19:43)
--- NOTE | 2017-02-21 20:15 | NUR ---
US TECH AT THE BEDSIDE.
[2017-02-21 20:34] LABS: BASOPHILS # (AUTO) 0.1 /CMM (0.0-0.2); BASOPHILS % (AUTO) 0.7 % (0.0-2.0); EOSINOPHILS # (AUTO) 0.2 /CMM (0.0-0.7); EOSINOPHILS % (AUTO) 2.2 % (0.0-6.0); HEMATOCRIT 25 % (39-51); HEMOGLOBIN 8.5 g/dL (13.5-17.5); LYMPHOCYTES # (AUTO) 2.4 /CMM (0.8-4.8); LYMPHOCYTES % (AUTO) 20.9 % (20.0-44.0); MEAN CORPUSCULAR HEMOGLOBIN 30 PG (26.0-33.0); MEAN CORPUSCULAR HGB CONC 34 g/dl (31.0-36.0); MEAN CORPUSCULAR VOLUME 90 fL (80-96); MONOCYTES # (AUTO) 0.6 /CMM (0.1-1.30); NEUTROPHILS # (AUTO) 8.1 /CMM (1.8-8.9); NEUTROPHILS % (AUTO) 71.2 % (43.0-81.0); PLATELET COUNT (AUTO) 525 /CMM (150-450); RDW COEFFICIENT OF VARIATION 13.3 (11.5-15.0); WHITE BLOOD COUNT (AUTO) 11.4 K/uL (4.3-11.0)
[2017-02-21 21:03] LABS: C-REACTIVE PROTEIN 1.6 mg/dL (0.0-0.9)
[2017-02-21 21:12] LABS: CALCIUM, SERUM 8.2 mg/dL (8.5-10.1); CREATININE 1.9 mg/dL (0.6-1.3); POTASSIUM 4.6 mmol/L (3.5-5.1)
[2017-02-21 21:18] LABS: ALBUMIN 2.5 g/dL (3.4-5.0); BILIRUBIN,TOTAL 0.2 mg/dL (0.2-1.0); TOTAL PROTEIN, SERUM 7.4 g/dL (6.4-8.2)
--- NOTE | 2017-02-21 21:39 | NUR ---
Patient discharged to home in stable condition. Written and verbal after care instructions given. Patient verbalizes understanding of instruction. PT TO FU WITH [facility] TOMORROW. PT'S FOOT WAS RE-DRESSED AND ORTHO SHOE PUT BACK ON. PT'S FRIEND IS TAKING PT HOME. VSS
[2017-02-21 21:41] VITALS: BP 136/76
== END 2017-02-21 21:41 | disposition home or self-care (01) ==
LOC: ER 19:11
DX: R60.0 Localized edema (principal); D64.9 Anemia, unspecified; I10 Essential (primary) hypertension; E11.9 Type 2 diabetes mellitus without complications; Z79.82 Long term (current) use of aspirin; Z89.412 Acquired absence of left great toe; Z86.73 Personal history of transient ischemic attack (TIA), and cerebral infarction without residual deficits
CPT/HCPCS: 36415; 80053-TC; 82962-TC; 85025-TC; 86140-TC; 93971-TC; A4606; Z7610

== ENCOUNTER 2017-03-03 18:18 | Emergency (ER) | payer OTHER ==
[~2017-03-03] VITALS: Ht 170.2 cm; Wt 74.4 kg
[2017-03-03 18:30] VITALS: BP 162/92
== END 2017-03-03 19:20 | disposition home or self-care (01) ==
LOC: ER 18:22
DX: Z45.2 Encounter for adjustment and management of vascular access device (principal); I10 Essential (primary) hypertension; E11.9 Type 2 diabetes mellitus without complications; K85.90 Acute pancreatitis without necrosis or infection, unspecified
CPT/HCPCS: A4606; Z7502; Z7610

== ENCOUNTER 2017-03-21 11:36 | Emergency (ER) | payer OTHER ==
[~2017-03-21] VITALS: Ht 170.2 cm; Wt 72.6 kg
[2017-03-21 11:36] VITALS: BP 111/75
== END 2017-03-21 12:11 | disposition home or self-care (01) ==
LOC: ER 11:42
DX: Z45.2 Encounter for adjustment and management of vascular access device (principal); I10 Essential (primary) hypertension; E11.9 Type 2 diabetes mellitus without complications; G62.9 Polyneuropathy, unspecified; D64.9 Anemia, unspecified; Z79.82 Long term (current) use of aspirin; Z86.73 Personal history of transient ischemic attack (TIA), and cerebral infarction without residual deficits
CPT/HCPCS: 99281; A4606; A6402; Z7610; Z7502

== ENCOUNTER 2017-04-12 17:16 | Inpatient (IN) | payer OTHER ==
[2017-04-12] VITALS (9 sets, daily range): BP systolic 153–184; BP diastolic 62–132
[~2017-04-12] VITALS: Ht 172.7 cm; Wt 75.7 kg
[2017-04-12] MEDS ORDERED: PANTOPRAZOLE 40 MG VIAL ONE (17:53)
[2017-04-12] MEDS ORDERED: METOCLOPRAMIDE HCL 10 MG/2 ML VIAL ONE (17:53)
[2017-04-12] MEDS ORDERED: IV NS 0.9% 1,000 ML ONE (17:54)
[2017-04-12] MEDS ORDERED: METOCLOPRAMIDE HCL 10 MG/2 ML VIAL IV ONE (18:00)
[2017-04-12] MEDS ORDERED: PANTOPRAZOLE 40 MG VIAL IV ONE (18:00)
[2017-04-12] MEDS ORDERED: IV NS 0.9% 1,000 ML BAG IV ONE ×3 (18:00→18:30)
[2017-04-12 18:05] LABS: CALCIUM, SERUM 10.8 mg/dL (8.5-10.1); CREATININE 6.1 mg/dL (0.6-1.3); POTASSIUM 4.3 mmol/L (3.5-5.1)
[2017-04-12 18:12] LABS: ALBUMIN 3.9 g/dL (3.4-5.0); BILIRUBIN,DIRECT 0.1 mg/dL (0.0-0.2); BILIRUBIN,TOTAL 0.4 mg/dL (0.2-1.0); TOTAL PROTEIN, SERUM 9.7 g/dL (6.4-8.2)
[2017-04-12 18:14] LABS: PROTHROMBIN TIME 10.7 SECS (9.5-12.7)
[2017-04-12 18:17] LABS: BASOPHILS # (AUTO) 0.3 /CMM (0.0-0.2); BASOPHILS % (AUTO) 1.2 % (0.0-2.0); HEMATOCRIT 36 % (39-51); HEMOGLOBIN 12.3 g/dL (13.5-17.5); LYMPHOCYTES # (AUTO) 1.6 /CMM (0.8-4.8); LYMPHOCYTES % (AUTO) 7.4 % (20.0-44.0); MEAN CORPUSCULAR HEMOGLOBIN 30 PG (26.0-33.0); MEAN CORPUSCULAR HGB CONC 34 g/dl (31.0-36.0); MEAN CORPUSCULAR VOLUME 88 fL (80-96); MONOCYTES # (AUTO) 0.5 /CMM (0.1-1.30); MONOCYTES % (AUTO) 2.3 % (2.0-12.0); NEUTROPHILS # (AUTO) 19.7 /CMM (1.8-8.9); NEUTROPHILS % (AUTO) 89.1 % (43.0-81.0); PLATELET COUNT (AUTO) 399 /CMM (150-450); RDW COEFFICIENT OF VARIATION 12.1 (11.5-15.0); RED BLOOD CELL COUNT(AUTO) 4.08 MIL/uL (4.5-6.0); WHITE BLOOD COUNT (AUTO) 22.1 K/uL (4.3-11.0)
[2017-04-12] MEDS ORDERED: PIPERACILLIN /TAZOBACTAM 3.375 G in IV D5W 50 ML IV ONE (18:30)
[2017-04-12] MEDS ORDERED: PANTOPRAZOLE 80 MG in IV NS 0.9% 500 ML IV PRN (18:30)
[2017-04-12] MEDS ORDERED: IV SET PRIMARY 1 EA INFUS.SET MC ONE (18:34)
[2017-04-12] MEDS ORDERED: IV NS 0.9% 3,000 ML ONE (18:34)
[2017-04-12] MEDS ORDERED: IV SET PRIMARY PUMP SET 1 EA INFUS.SET MC ONE ×2 (18:35→21:00)
[2017-04-12 18:54] LABS: LYMPHOCYTES % (MANUAL) 9 % (16-48); MONOCYTES % (MANUAL) 7 % (0-11.0); NEUTROPHILS % (MANUAL) 84 (42-76)
[2017-04-12] MEDS ORDERED: ACETAMINOPHEN 650 MG/20.3 ML UDC PO ONE (19:00)
[2017-04-12] MEDS ORDERED: ACETAMINOPHEN 325 MG TABLET ONE (19:03)
[2017-04-12] MEDS ORDERED: LIDOCAINE 2% JEL UROJET 10 ML MM ONE ×2 (19:08→19:30)
[2017-04-12] MEDS ORDERED: NALOXONE HCL 0.4 MG/ML AMPUL ONE (19:45)
[2017-04-12] MEDS ORDERED: NALOXONE PREFILLED SYRINGE 2 MG/2 ML SYRINGE ONE (19:45)
[2017-04-12] MEDS ORDERED: NALOXONE HCL 0.4 MG/ML AMPUL IV STA (19:47)
[2017-04-12] MEDS ORDERED: METOPROLOL TARTRATE 25 MG TABLET PO SCH (20:30)
[2017-04-12] MEDS ORDERED: MAG HYDROX/AL HYDROX/SIMETH 30 ML UDC PO PRN (20:30)
[2017-04-12] MEDS ORDERED: Z GUARD REMEDY 2 OZ OINT TP PRN (20:30)
[2017-04-12] MEDS ORDERED: DEXTROSE 50%-WATER 50 ML DISP.SYRIN IV PRN (20:30)
[2017-04-12] MEDS ORDERED: HYDROCODONE/APAP 5/325MG 1 EACH TABLET PO PRN (20:30)
[2017-04-12] MEDS ORDERED: MAGNESIUM HYDROXIDE 30 ML UDC PO PRN (20:30)
[2017-04-12] MEDS ORDERED: ACETAMINOPHEN 325 MG TABLET PO PRN (20:30)
[2017-04-12] MEDS ORDERED: METOPROLOL TARTRATE INJ 5 MG/5 ML AMPUL ONE (21:00)
[2017-04-12] MEDS: IV NS 0.9% 1,000 ML IV PRN (21:05)
[2017-04-12] MEDS: METOPROLOL TARTRATE INJ 5 MG/5 ML AMPUL IVP PRN (21:06)
[2017-04-12] MEDS: ONDANSETRON HCL/PF 4 MG/2 ML VIAL IVP PRN (21:22)
[2017-04-12] MEDS: MORPHINE SULFATE INJ 2 MG/ML DISP.SYRIN IV PRN (21:56)
[2017-04-12] MEDS: BLOOD SUGAR DIAGNOSTIC 1 EACH STRIP VI SCH (22:00)
[2017-04-12 22:32] LABS: APPEARANCE,URINE SL CLOUDY (CLEAR); BILIRUBIN,URINE NEGATIVE (NEGATIVE); BLOOD, URINE 2+ Ery/uL (NEGATIVE); KETONES,URINE NEGATIVE (NEGATIVE); LEUKOCYTE ESTERASE ,URINE NEGATIVE (NEGATIVE); NITRITE, URINE NEGATIVE (NEGATIVE); PH,URINE 5.5 (5.0-8.0); PROTEIN,URINE 2+ mg/dl (NEGATIVE); UGLUCOSE 3+ mg/dL (NEGATIVE); UROBILINOGEN,URINE 0.2 EU/dL (0.2)
[2017-04-12 22:35] LABS: COLOR,URINE Light yellow (YELLOW)
[2017-04-12 22:51] LABS: BACTERIA,URINE None seen /HPF (None Seen); SQUAMOUS EPITHELIAL CELL,UR Few /HPF (None Seen); URINE AMORPHOUS URATE Many /HPF (None Seen); WBC,URINE NONE SEEN /HPF (0-3)
[2017-04-12] MEDS: ZOLPIDEM TARTRATE 5 MG TABLET PO PRN (23:03)
[2017-04-13] VITALS (31 sets, daily range): BP systolic 113–189; BP diastolic 58–122
[2017-04-13] MEDS ORDERED: PIPERACILLIN /TAZOBACTAM 3.375 G in IV D5W 50 ML IV SCH ×2
[2017-04-13] MEDS: IV NS 0.9% 1,000 ML IV PRN ×3 (03:30→21:31)
[2017-04-13] MEDS ORDERED: PIPERACILLIN /TAZOBACTAM 2.25 G VIAL IV ONE (04:11)
[2017-04-13] MEDS ORDERED: IV D5W 50 ML IV ONE (04:12)
[2017-04-13] MEDS ORDERED: SECONDARY IV SET 1 EA INFUS.SET MC ONE ×2 (04:20→08:10)
[2017-04-13] MEDS: PIPERACILLIN /TAZOBACTAM 2.25 G in IV D5W 50 ML IV SCH ×3 (04:25→21:47)
[2017-04-13 04:44] LABS: BASOPHILS % (AUTO) 0.2 % (0.0-2.0); EOSINOPHILS % (AUTO) 0.2 % (0.0-6.0); HEMATOCRIT 32 % (39-51); LYMPHOCYTES % (AUTO) 15.6 % (20.0-44.0); MEAN CORPUSCULAR HEMOGLOBIN 31 PG (26.0-33.0); MEAN CORPUSCULAR HGB CONC 34 g/dl (31.0-36.0); MEAN CORPUSCULAR VOLUME 90 fL (80-96); MONOCYTES # (AUTO) 0.8 /CMM (0.1-1.30); MONOCYTES % (AUTO) 4.3 % (2.0-12.0); NEUTROPHILS # (AUTO) 15.5 /CMM (1.8-8.9); NEUTROPHILS % (AUTO) 79.7 % (43.0-81.0); PLATELET COUNT (AUTO) 363 /CMM (150-450); RDW COEFFICIENT OF VARIATION 13.5 (11.5-15.0); RED BLOOD CELL COUNT(AUTO) 3.59 MIL/uL (4.5-6.0); WHITE BLOOD COUNT (AUTO) 19.4 K/uL (4.3-11.0)
[2017-04-13] MEDS: MORPHINE SULFATE INJ 2 MG/ML DISP.SYRIN IV PRN ×2 (04:46→10:27)
[2017-04-13 05:03] LABS: ALBUMIN 3.3 g/dL (3.4-5.0); BILIRUBIN,TOTAL 0.3 mg/dL (0.2-1.0); CALCIUM, SERUM 8.8 mg/dL (8.5-10.1); CREATININE 5.6 mg/dL (0.6-1.3); MAGNESIUM 1.7 mg/dL (1.8-2.4); PHOSPHORUS 4.8 mg/dL (2.5-4.9); POTASSIUM 4.4 mmol/L (3.5-5.1); TOTAL PROTEIN, SERUM 7.9 g/dL (6.4-8.2)
[2017-04-13] MEDS ORDERED: METOPROLOL TARTRATE INJ 5 MG/5 ML AMPUL ONE (05:27)
[2017-04-13] MEDS: METOPROLOL TARTRATE INJ 5 MG/5 ML AMPUL IVP PRN ×2 (05:33→21:33)
[2017-04-13] MEDS ORDERED: IPRATROPIUM NEB FS 0.5 MG/2.5 ML AMPUL.NEB NEB PRN (06:30)
[2017-04-13] MEDS ORDERED: ALBUTEROL HALF STRENGTH 1.25 MG/3 ML VIAL.NEB NEB PRN (06:30)
[2017-04-13] MEDS ORDERED: PANTOPRAZOLE 40 MG TABLET.DR PO SCH (07:30)
[2017-04-13] MEDS: BLOOD SUGAR DIAGNOSTIC 1 EACH STRIP VI SCH ×4 (07:40→21:32)
[2017-04-13] MEDS: Magnesium 1GM/D5W 100ML PREMIX 100 ML IV SCH ×2 (08:25→10:16)
[2017-04-13] MEDS: PANTOPRAZOLE 40 MG VIAL IV SCH ×2 (08:25→17:49)
[2017-04-13] MEDS: AMLODIPINE BESYLATE 10 MG TABLET PO SCH (08:31)
[2017-04-13] MEDS ORDERED: ASPIRIN 81 MG TAB.CHEW PO SCH (09:00)
[2017-04-13] MEDS ORDERED: Magnesium 1GM/D5W 100ML PREMIX 100 ML IV SCH (11:30)
[2017-04-13] MEDS: INSULIN REGULAR, HUMAN 100 UNIT/ML 3 ML VIAL SQ PRN ×2 (12:24→17:51)
[2017-04-13 20:54] LABS: CREATININE, URINE 56.3 MG/DL (30.0-125.0)
[2017-04-13] MEDS: ZOLPIDEM TARTRATE 5 MG TABLET PO PRN (22:34)
[2017-04-14] VITALS: BP_SYST 116; BP_SYST 158; BP_DIAS 65; BP_DIAS 90
[2017-04-14 04:00] VITALS: BP 158/92
[2017-04-14] MEDS ORDERED: PIPERACILLIN /TAZOBACTAM 2.25 G VIAL IV ONE (04:44)
[2017-04-14] MEDS ORDERED: IV D5W 50 ML IV ONE (04:45)
[2017-04-14] MEDS: PIPERACILLIN /TAZOBACTAM 2.25 G in IV D5W 50 ML IV SCH ×3 (05:23→21:22)
[2017-04-14 06:46] LABS: BASOPHILS # (AUTO) 0.1 /CMM (0.0-0.2); BASOPHILS % (AUTO) 0.5 % (0.0-2.0); EOSINOPHILS # (AUTO) 0.3 /CMM (0.0-0.7); EOSINOPHILS % (AUTO) 2.4 % (0.0-6.0); HEMATOCRIT 30 % (39-51); HEMOGLOBIN 10.2 g/dL (13.5-17.5); LYMPHOCYTES # (AUTO) 2.3 /CMM (0.8-4.8); LYMPHOCYTES % (AUTO) 18.8 % (20.0-44.0); MEAN CORPUSCULAR HEMOGLOBIN 31 PG (26.0-33.0); MEAN CORPUSCULAR HGB CONC 34 g/dl (31.0-36.0); MEAN CORPUSCULAR VOLUME 91 fL (80-96); MONOCYTES # (AUTO) 0.7 /CMM (0.1-1.30); MONOCYTES % (AUTO) 5.6 % (2.0-12.0); NEUTROPHILS % (AUTO) 72.7 % (43.0-81.0); PLATELET COUNT (AUTO) 323 /CMM (150-450); RDW COEFFICIENT OF VARIATION 13.2 (11.5-15.0); RED BLOOD CELL COUNT(AUTO) 3.27 MIL/uL (4.5-6.0); WHITE BLOOD COUNT (AUTO) 12.3 K/uL (4.3-11.0)
[2017-04-14 06:49] LABS: INR 0.95 (0.87-1.13); PROTHROMBIN TIME 10.1 SECS (9.5-12.7)
[2017-04-14 06:59] LABS: CALCIUM, SERUM 8.2 mg/dL (8.5-10.1); CREATININE 5.1 mg/dL (0.6-1.3); PHOSPHORUS 3.5 mg/dL (2.5-4.9)
[2017-04-14 08:00] VITALS: BP 163/93
[2017-04-14] MEDS: IV NS 0.9% 1,000 ML IV PRN (08:23)
[2017-04-14] MEDS: AMLODIPINE BESYLATE 10 MG TABLET PO SCH (08:24)
[2017-04-14] MEDS: PANTOPRAZOLE 40 MG VIAL IV SCH ×2 (08:24→16:09)
[2017-04-14] MEDS: BLOOD SUGAR DIAGNOSTIC 1 EACH STRIP VI SCH ×4 (08:25→21:23)
[2017-04-14] MEDS: MORPHINE SULFATE INJ 2 MG/ML DISP.SYRIN IV PRN ×3 (08:38→23:45)
[2017-04-14] MEDS ORDERED: SECONDARY IV SET 1 EA INFUS.SET MC ONE (11:45)
[2017-04-14 12:00] VITALS: BP 132/77
[2017-04-14 16:00] VITALS: BP 150/78
[2017-04-14] MEDS: *INSULIN REGULAR(HUMULIN R)HUM 100 UNIT/ML VIAL SQ PRN (17:40)
[2017-04-14 20:00] VITALS: BP 143/88
[2017-04-14] MEDS: ZOLPIDEM TARTRATE 5 MG TABLET PO PRN (21:22)
[2017-04-15] VITALS: BP 152/86
[2017-04-15 04:00] VITALS: BP 151/86
[2017-04-15] MEDS: PIPERACILLIN /TAZOBACTAM 2.25 G in IV D5W 50 ML IV SCH ×3 (05:51→22:30)
[2017-04-15] MEDS: BLOOD SUGAR DIAGNOSTIC 1 EACH STRIP VI SCH ×4 (06:32→22:00)
[2017-04-15 06:43] LABS: BASOPHILS # (AUTO) 0.1 /CMM (0.0-0.2); BASOPHILS % (AUTO) 0.9 % (0.0-2.0); EOSINOPHILS # (AUTO) 0.6 /CMM (0.0-0.7); EOSINOPHILS % (AUTO) 4.8 % (0.0-6.0); HEMATOCRIT 31 % (39-51); HEMOGLOBIN 10.6 g/dL (13.5-17.5); LYMPHOCYTES % (AUTO) 24.9 % (20.0-44.0); MEAN CORPUSCULAR HEMOGLOBIN 31 PG (26.0-33.0); MEAN CORPUSCULAR HGB CONC 35 g/dl (31.0-36.0); MEAN CORPUSCULAR VOLUME 90 fL (80-96); MONOCYTES # (AUTO) 0.7 /CMM (0.1-1.30); MONOCYTES % (AUTO) 6.1 % (2.0-12.0); NEUTROPHILS # (AUTO) 7.7 /CMM (1.8-8.9); NEUTROPHILS % (AUTO) 63.3 % (43.0-81.0); PLATELET COUNT (AUTO) 298 /CMM (150-450); RDW COEFFICIENT OF VARIATION 12.8 (11.5-15.0); RED BLOOD CELL COUNT(AUTO) 3.43 MIL/uL (4.5-6.0); WHITE BLOOD COUNT (AUTO) 12.2 K/uL (4.3-11.0)
[2017-04-15 06:51] LABS: CALCIUM, SERUM 8.4 mg/dL (8.5-10.1); CREATININE 5.1 mg/dL (0.6-1.3); POTASSIUM 4.4 mmol/L (3.5-5.1)
[2017-04-15 08:00] VITALS: BP 149/81
[2017-04-15] MEDS: AMLODIPINE BESYLATE 10 MG TABLET PO SCH (08:49)
[2017-04-15] MEDS: PANTOPRAZOLE 40 MG VIAL IV SCH ×2 (08:49→17:15)
[2017-04-15] MEDS: MORPHINE SULFATE INJ 2 MG/ML DISP.SYRIN IV PRN ×3 (09:13→22:00)
[2017-04-15 12:00] VITALS: BP 139/85
[2017-04-15] MEDS: INSULIN REGULAR, HUMAN 100 UNIT/ML 3 ML VIAL SQ PRN (12:44)
[2017-04-15 16:00] VITALS: BP 154/84
[2017-04-15 20:00] VITALS: BP 145/87
[2017-04-15] MEDS ORDERED: IV SET PRIMARY PUMP SET 1 EA INFUS.SET MC ONE (22:09)
[2017-04-15] MEDS: ZOLPIDEM TARTRATE 5 MG TABLET PO PRN (22:45)
[2017-04-16] VITALS: BP 149/88
[2017-04-16] MEDS: INSULIN REGULAR, HUMAN 100 UNIT/ML 3 ML VIAL SQ PRN ×3 (03:21→18:03)
[2017-04-16 04:00] VITALS: BP 150/81
[2017-04-16] MEDS: PIPERACILLIN /TAZOBACTAM 2.25 G in IV D5W 50 ML IV SCH ×3 (05:16→20:41)
[2017-04-16 08:00] VITALS: BP_SYST 156; BP_SYST 166; BP_DIAS 90
[2017-04-16] MEDS: BLOOD SUGAR DIAGNOSTIC 1 EACH STRIP VI SCH ×4 (08:11→21:46)
[2017-04-16] MEDS: PANTOPRAZOLE 40 MG VIAL IV SCH ×2 (08:13→17:56)
[2017-04-16] MEDS: AMLODIPINE BESYLATE 10 MG TABLET PO SCH (08:15)
[2017-04-16] MEDS: MORPHINE SULFATE INJ 2 MG/ML DISP.SYRIN IV PRN ×2 (08:21→20:47)
[2017-04-16 12:00] VITALS: BP 158/90
[2017-04-16 16:00] VITALS: BP 151/80
[2017-04-16 20:00] VITALS: BP 150/86
[2017-04-16] MEDS: *INSULIN REGULAR(HUMULIN R)HUM 100 UNIT/ML VIAL SQ PRN (20:48)
[2017-04-17] VITALS (7 sets, daily range): BP systolic 134–157; BP diastolic 74–88
[2017-04-17] MEDS: PIPERACILLIN /TAZOBACTAM 2.25 G in IV D5W 50 ML IV SCH ×3 (05:11→21:11)
[2017-04-17 06:45] LABS: BASOPHILS # (AUTO) 0.1 /CMM (0.0-0.2); BASOPHILS % (AUTO) 0.6 % (0.0-2.0); EOSINOPHILS # (AUTO) 0.2 /CMM (0.0-0.7); EOSINOPHILS % (AUTO) 1.7 % (0.0-6.0); HEMATOCRIT 29 % (39-51); HEMOGLOBIN 10.1 g/dL (13.5-17.5); LYMPHOCYTES # (AUTO) 2.2 /CMM (0.8-4.8); LYMPHOCYTES % (AUTO) 20.8 % (20.0-44.0); MEAN CORPUSCULAR HEMOGLOBIN 31 PG (26.0-33.0); MEAN CORPUSCULAR HGB CONC 34 g/dl (31.0-36.0); MEAN CORPUSCULAR VOLUME 90 fL (80-96); MONOCYTES # (AUTO) 0.5 /CMM (0.1-1.30); MONOCYTES % (AUTO) 4.4 % (2.0-12.0); NEUTROPHILS # (AUTO) 7.7 /CMM (1.8-8.9); NEUTROPHILS % (AUTO) 72.5 % (43.0-81.0); PLATELET COUNT (AUTO) 318 /CMM (150-450); RDW COEFFICIENT OF VARIATION 13.1 (11.5-15.0); RED BLOOD CELL COUNT(AUTO) 3.27 MIL/uL (4.5-6.0); WHITE BLOOD COUNT (AUTO) 10.6 K/uL (4.3-11.0)
[2017-04-17] MEDS: BLOOD SUGAR DIAGNOSTIC 1 EACH STRIP VI SCH ×4 (06:58→21:16)
[2017-04-17] MEDS: INSULIN REGULAR, HUMAN 100 UNIT/ML 3 ML VIAL SQ PRN ×2 (07:00→17:17)
[2017-04-17 07:14] LABS: CALCIUM, SERUM 8.4 mg/dL (8.5-10.1); CREATININE 4.7 mg/dL (0.6-1.3); MAGNESIUM 1.7 mg/dL (1.8-2.4); PHOSPHORUS 4.2 mg/dL (2.5-4.9); POTASSIUM 3.8 mmol/L (3.5-5.1)
[2017-04-17] MEDS: MORPHINE SULFATE INJ 2 MG/ML DISP.SYRIN IV PRN ×4 (07:58→23:26)
[2017-04-17] MEDS: PANTOPRAZOLE 40 MG VIAL IV SCH ×2 (08:04→17:06)
[2017-04-17] MEDS: AMLODIPINE BESYLATE 10 MG TABLET PO SCH (08:04)
[2017-04-17] MEDS ORDERED: IV NS 0.9% 250 ML IV ONE (12:45)
[2017-04-17] MEDS ORDERED: SECONDARY IV SET 1 EA INFUS.SET MC ONE ×2 (12:49→21:11)
[2017-04-17] MEDS: Magnesium 1GM/D5W 100ML PREMIX 100 ML IV SCH ×2 (13:04→17:07)
[2017-04-17] MEDS: *INSULIN REGULAR(HUMULIN R)HUM 100 UNIT/ML VIAL SQ PRN (21:22)
[2017-04-18] MEDS: ZOLPIDEM TARTRATE 5 MG TABLET PO PRN ×2 (00:04→23:47)
[2017-04-18 04:00] VITALS: BP 154/88
[2017-04-18] MEDS: PIPERACILLIN /TAZOBACTAM 2.25 G in IV D5W 50 ML IV SCH ×3 (05:34→21:43)
[2017-04-18] MEDS: BLOOD SUGAR DIAGNOSTIC 1 EACH STRIP VI SCH ×4 (05:36→21:47)
[2017-04-18 06:49] LABS: BASOPHILS # (AUTO) 0.1 /CMM (0.0-0.2); BASOPHILS % (AUTO) 0.7 % (0.0-2.0); EOSINOPHILS # (AUTO) 0.3 /CMM (0.0-0.7); EOSINOPHILS % (AUTO) 2.8 % (0.0-6.0); HEMATOCRIT 30 % (39-51); HEMOGLOBIN 10.4 g/dL (13.5-17.5); LYMPHOCYTES # (AUTO) 2.3 /CMM (0.8-4.8); LYMPHOCYTES % (AUTO) 24.7 % (20.0-44.0); MEAN CORPUSCULAR HEMOGLOBIN 31 PG (26.0-33.0); MEAN CORPUSCULAR HGB CONC 34 g/dl (31.0-36.0); MEAN CORPUSCULAR VOLUME 91 fL (80-96); MONOCYTES # (AUTO) 0.5 /CMM (0.1-1.30); MONOCYTES % (AUTO) 5.6 % (2.0-12.0); NEUTROPHILS # (AUTO) 6.1 /CMM (1.8-8.9); NEUTROPHILS % (AUTO) 66.2 % (43.0-81.0); PLATELET COUNT (AUTO) 380 /CMM (150-450); RDW COEFFICIENT OF VARIATION 13.1 (11.5-15.0); RED BLOOD CELL COUNT(AUTO) 3.35 MIL/uL (4.5-6.0); WHITE BLOOD COUNT (AUTO) 9.3 K/uL (4.3-11.0)
[2017-04-18 07:23] LABS: CALCIUM, SERUM 8.6 mg/dL (8.5-10.1); CREATININE 4.4 mg/dL (0.6-1.3); MAGNESIUM 2.2 mg/dL (1.8-2.4); POTASSIUM 3.7 mmol/L (3.5-5.1)
[2017-04-18 08:00] VITALS: BP 151/74
[2017-04-18] MEDS ORDERED: SECONDARY IV SET 1 EA INFUS.SET MC ONE (08:26)
[2017-04-18] MEDS: PANTOPRAZOLE 40 MG VIAL IV SCH ×2 (09:20→17:25)
[2017-04-18] MEDS: AMLODIPINE BESYLATE 10 MG TABLET PO SCH (09:24)
[2017-04-18] MEDS: INSULIN REGULAR, HUMAN 100 UNIT/ML 3 ML VIAL SQ PRN (12:19)
[2017-04-18 16:00] VITALS: BP 169/84
[2017-04-18] MEDS: BOOST GLUCOSE CONTROL VANILLA 237 ML BOX PO SCH (17:00)
[2017-04-18] MEDS: *INSULIN REGULAR(HUMULIN R)HUM 100 UNIT/ML VIAL SQ PRN ×2 (17:28→21:49)
[2017-04-18 20:00] VITALS: BP 140/74
[2017-04-18] MEDS: MORPHINE SULFATE INJ 2 MG/ML DISP.SYRIN IV PRN (21:52)
[2017-04-19 04:00] VITALS: BP 167/89
[2017-04-19] MEDS: MORPHINE SULFATE INJ 2 MG/ML DISP.SYRIN IV PRN (04:21)
[2017-04-19] MEDS: PIPERACILLIN /TAZOBACTAM 2.25 G in IV D5W 50 ML IV SCH ×2 (04:22→12:46)
[2017-04-19] MEDS: ONDANSETRON HCL/PF 4 MG/2 ML VIAL IVP PRN (04:35)
[2017-04-19] MEDS: BLOOD SUGAR DIAGNOSTIC 1 EACH STRIP VI SCH ×2 (05:42→12:46)
[2017-04-19] MEDS: INSULIN REGULAR, HUMAN 100 UNIT/ML 3 ML VIAL SQ PRN ×2 (05:44→12:47)
[2017-04-19 06:44] LABS: BASOPHILS % (AUTO) 0.3 % (0.0-2.0); EOSINOPHILS # (AUTO) 0.2 /CMM (0.0-0.7); EOSINOPHILS % (AUTO) 2.1 % (0.0-6.0); HEMATOCRIT 30 % (39-51); HEMOGLOBIN 10.4 g/dL (13.5-17.5); LYMPHOCYTES # (AUTO) 1.8 /CMM (0.8-4.8); LYMPHOCYTES % (AUTO) 19.5 % (20.0-44.0); MEAN CORPUSCULAR HEMOGLOBIN 31 PG (26.0-33.0); MEAN CORPUSCULAR HGB CONC 35 g/dl (31.0-36.0); MEAN CORPUSCULAR VOLUME 89 fL (80-96); MONOCYTES # (AUTO) 0.5 /CMM (0.1-1.30); MONOCYTES % (AUTO) 5.6 % (2.0-12.0); NEUTROPHILS # (AUTO) 6.5 /CMM (1.8-8.9); NEUTROPHILS % (AUTO) 72.5 % (43.0-81.0); PLATELET COUNT (AUTO) 363 /CMM (150-450); RED BLOOD CELL COUNT(AUTO) 3.36 MIL/uL (4.5-6.0)
[2017-04-19 07:00] LABS: ALBUMIN 3.2 g/dL (3.4-5.0); BILIRUBIN,TOTAL 0.4 mg/dL (0.2-1.0); CALCIUM, SERUM 8.7 mg/dL (8.5-10.1); CREATININE 4.6 mg/dL (0.6-1.3); PHOSPHORUS 4.1 mg/dL (2.5-4.9); POTASSIUM 3.7 mmol/L (3.5-5.1); TOTAL PROTEIN, SERUM 7.4 g/dL (6.4-8.2)
[2017-04-19 08:00] VITALS: BP 144/23
[2017-04-19] MEDS: PANTOPRAZOLE 40 MG VIAL IV SCH (09:18)
[2017-04-19 10:02] VITALS: BP 144/73
[2017-04-19] MEDS: AMLODIPINE BESYLATE 10 MG TABLET PO SCH (10:02)
[2017-04-19] MEDS: BOOST GLUCOSE CONTROL VANILLA 237 ML BOX PO SCH (10:02)
== END 2017-04-19 14:04 | disposition home or self-care (01) | DRG 720 ==
LOC: ER 17:18 → ICU 18:47 → TELE-TD 04-13 18:37 → TELE1 04-14 09:19 → MEDSG1 04-17 10:51
PROVIDERS: ADMIT Family Medicine; ATTEND Family Medicine
PROC: 0DJ08ZZ Inspection of Upper Intestinal Tract, Via Natural or Artificial Opening Endoscopic (ICD-10-PCS; principal; 2017-04-14 14:00)
DX: A41.9 Sepsis, unspecified organism (principal); N17.0 Acute kidney failure with tubular necrosis; G92 Toxic encephalopathy; K85.90 Acute pancreatitis without necrosis or infection, unspecified; K92.0 Hematemesis; E11.22 Type 2 diabetes mellitus with diabetic chronic kidney disease; E83.42 Hypomagnesemia; K86.1 Other chronic pancreatitis; I69.354 Hemiplegia and hemiparesis following cerebral infarction affecting left non-dominant side; I12.9 Hypertensive chronic kidney disease with stage 1 through stage 4 chronic kidney disease, or unspecified chronic kidney disease; E11.65 Type 2 diabetes mellitus with hyperglycemia; K21.9 Gastro-esophageal reflux disease without esophagitis; E78.5 Hyperlipidemia, unspecified; I25.10 Atherosclerotic heart disease of native coronary artery without angina pectoris; G62.9 Polyneuropathy, unspecified; N18.9 Chronic kidney disease, unspecified; R00.0 Tachycardia, unspecified; R19.7 Diarrhea, unspecified; E86.0 Dehydration; D72.829 Elevated white blood cell count, unspecified; D63.8 Anemia in other chronic diseases classified elsewhere; Z87.891 Personal history of nicotine dependence; E73.9 Lactose intolerance, unspecified
CPT/HCPCS: 36415; 70450-TC; 71010-TC; 80048-TC; 80053-TC; 80061-TC; 80076-TC; 81000-TC; 82570-TC; 82962-TC; 83605-TC; 83690-TC; 83735-TC; 84100-TC; 84300-TC; 84550-TC; 85025-TC; 85610-TC; 85730-TC; 86850-TC; 87040-TC; 87045-TC; 87081-TC; 87086-TC; 89055; 94799-TC; 97001-TC; 97110-TC; 97116-TC; A4606; C9113; J1815; J2270; J2310; J2405; J2543; J2704; J2765; J3475; J3490; J7030; J7040; J7050; J7060; Z7610

== ENCOUNTER 2017-07-11 15:39 | Inpatient (IN) | payer OTHER ==
[~2017-07-11 15:39] MED LIST changes: -LEVO500T15 PO; -RXVAN XX
[2017-07-11] MEDS ORDERED: LOPERAMIDE HCL (2 MG CAP) 2 MG CAPSULE PO ONE ×2 (16:00→16:33)
[2017-07-11] MEDS ORDERED: PIPERACILLIN /TAZOBACTAM 2.25 G in IV D5W 50 ML IV ONE (17:30)
[2017-07-11] MEDS ORDERED: VANCOMYCIN 1 GM in IV D5W 250 ML IV ONE (17:30)
[2017-07-11] MEDS ORDERED: GABA-534 PO (17:42)
[2017-07-11] MEDS ORDERED: OXYC30TA2 PO (17:42)
[2017-07-11] MEDS ORDERED: *INSULIN REGULAR(HUMULIN R)HUM 100 UNIT/ML VIAL SQ PRN (19:00)
[2017-07-11] MEDS ORDERED: IV NS 0.9% 1,000 ML BAG IV ONE (19:00)
[2017-07-11] MEDS ORDERED: DEXTROSE 50%-WATER 50 ML DISP.SYRIN IV PRN ×2 (19:00→19:45)
[2017-07-11] MEDS ORDERED: HYDROCODONE/APAP 5/325MG 1 EACH TABLET PO PRN (19:00)
[2017-07-11] MEDS ORDERED: ENOXAPARIN SODIUM 40 MG/0.4 ML DISP.SYRIN SQ SCH (19:00)
[2017-07-11] MEDS ORDERED: ONDANSETRON HCL/PF 4 MG/2 ML VIAL IVP PRN (19:00)
[2017-07-11] MEDS ORDERED: MAGNESIUM HYDROXIDE 30 ML UDC PO PRN ×2 (19:00→19:45)
[2017-07-11] MEDS ORDERED: MAG HYDROX/AL HYDROX/SIMETH 30 ML UDC PO PRN (19:00)
[2017-07-11] MEDS ORDERED: MORPHINE SULFATE INJ 2 MG/ML DISP.SYRIN IV PRN ×2 (19:00→19:45)
[2017-07-11] MEDS ORDERED: ZOLPIDEM TARTRATE 5 MG TABLET PO PRN (19:00)
[2017-07-11] MEDS ORDERED: Z GUARD REMEDY 2 OZ OINT TP PRN ×2 (19:00→19:45)
[2017-07-11] MEDS ORDERED: ACETAMINOPHEN 325 MG TABLET PO PRN ×2 (19:00→19:45)
[2017-07-11] MEDS ORDERED: INSULIN REGULAR, HUMAN 100 UNIT/ML 3 ML VIAL SQ PRN ×2 (19:00→19:45)
[2017-07-11] MEDS ORDERED: IV NS 0.9% 1,000 ML IV SCH (19:00)
[2017-07-11] MEDS: MAG HYDROX/AL HYDROX/SIMETH 30 ML UDC PO PRN (20:36)
[2017-07-11] MEDS: ONDANSETRON HCL/PF 4 MG/2 ML VIAL IVP PRN (20:39)
[2017-07-11] MEDS ORDERED: BLOOD SUGAR DIAGNOSTIC 1 EACH STRIP VI SCH (22:00)
[2017-07-11] MEDS: BLOOD SUGAR DIAGNOSTIC 1 EACH STRIP VI SCH (22:16)
[2017-07-11] MEDS: ENOXAPARIN SODIUM 40 MG/0.4 ML DISP.SYRIN SQ SCH (22:17)
[2017-07-11] MEDS: ZOLPIDEM TARTRATE 5 MG TABLET PO PRN (22:33)
[2017-07-11] MEDS: *INSULIN REGULAR(HUMULIN R)HUM 100 UNIT/ML VIAL SQ PRN (22:34)
[2017-07-12] MEDS: IV NS 0.9% 1,000 ML IV SCH ×2 (00:45→12:13)
[2017-07-12] MEDS: PIPERACILLIN /TAZOBACTAM 2.25 G in IV D5W 50 ML IV SCH ×4 (00:45→18:20)
[2017-07-12] MEDS: BLOOD SUGAR DIAGNOSTIC 1 EACH STRIP VI SCH ×4 (06:34→22:15)
[2017-07-12] MEDS ORDERED: PANTOPRAZOLE 40 MG TABLET.DR PO SCH (07:30)
[2017-07-12] MEDS: PANTOPRAZOLE 40 MG TABLET.DR PO SCH (09:52)
[2017-07-12] MEDS: HYDROCODONE/APAP 5/325MG 1 EACH TABLET PO PRN ×2 (10:12→17:32)
[2017-07-12] MEDS: *INSULIN REGULAR(HUMULIN R)HUM 100 UNIT/ML VIAL SQ PRN ×2 (14:27→22:22)
[2017-07-12] MEDS: MAG HYDROX/AL HYDROX/SIMETH 30 ML UDC PO PRN (18:17)
[2017-07-12] MEDS ORDERED: MORPHINE SULFATE INJ 4 MG/ML DISP.SYRIN IV PRN ×2 (20:30→21:00)
[2017-07-12] MEDS ORDERED: ASPIRIN 325 MG TABLET PO STA (20:33)
[2017-07-12] MEDS: METOPROLOL TARTRATE 25 MG TABLET PO SCH (20:46)
[2017-07-12] MEDS: NITROGLYCERIN 0.4 MG/TAB BOTTLE SL PRN (20:46)
[2017-07-12] MEDS ORDERED: MORPHINE SULFATE INJ 2 MG/ML DISP.SYRIN IV PRN (21:00)
[2017-07-12] MEDS: ENOXAPARIN SODIUM 40 MG/0.4 ML DISP.SYRIN SQ SCH (22:17)
[2017-07-12] MEDS: ONDANSETRON HCL/PF 4 MG/2 ML VIAL IVP PRN (23:19)
[2017-07-13] MEDS: PIPERACILLIN /TAZOBACTAM 2.25 G in IV D5W 50 ML IV SCH ×4 (00:15→17:33)
[2017-07-13] MEDS: MAG HYDROX/AL HYDROX/SIMETH 30 ML UDC PO PRN (00:17)
[2017-07-13] MEDS: IV NS 0.9% 1,000 ML IV SCH ×3 (00:24→21:45)
[2017-07-13] MEDS: BLOOD SUGAR DIAGNOSTIC 1 EACH STRIP VI SCH ×4 (06:45→21:02)
[2017-07-13] MEDS: *INSULIN REGULAR(HUMULIN R)HUM 100 UNIT/ML VIAL SQ PRN ×3 (06:49→21:07)
[2017-07-13] MEDS: METOPROLOL TARTRATE 25 MG TABLET PO SCH ×2 (08:12→17:49)
[2017-07-13] MEDS: PANTOPRAZOLE 40 MG TABLET.DR PO SCH (08:13)
[2017-07-13] MEDS: HYDROCODONE/APAP 5/325MG 1 EACH TABLET PO PRN (08:13)
[2017-07-13] MEDS: MORPHINE SULFATE INJ 4 MG/ML DISP.SYRIN IV PRN ×2 (12:55→18:02)
[2017-07-13] MEDS: Magnesium 1GM/D5W 100ML PREMIX 100 ML IV SCH ×2 (14:51→15:51)
[2017-07-13] MEDS: ENOXAPARIN SODIUM 40 MG/0.4 ML DISP.SYRIN SQ SCH (21:06)
[2017-07-13] MEDS: ZOLPIDEM TARTRATE 5 MG TABLET PO PRN (21:09)
[2017-07-14] MEDS: PIPERACILLIN /TAZOBACTAM 2.25 G in IV D5W 50 ML IV SCH ×4 (00:37→18:19)
[2017-07-14] MEDS: MORPHINE SULFATE INJ 4 MG/ML DISP.SYRIN IV PRN ×4 (05:36→21:22)
[2017-07-14] MEDS: *INSULIN REGULAR(HUMULIN R)HUM 100 UNIT/ML VIAL SQ PRN ×3 (06:22→21:38)
[2017-07-14] MEDS: BLOOD SUGAR DIAGNOSTIC 1 EACH STRIP VI SCH ×4 (06:38→21:24)
[2017-07-14] MEDS: PANTOPRAZOLE 40 MG TABLET.DR PO SCH (08:12)
[2017-07-14] MEDS: METOPROLOL TARTRATE 25 MG TABLET PO SCH ×2 (08:12→17:47)
[2017-07-14] MEDS: NITROGLYCERIN 0.4 MG/TAB BOTTLE SL PRN (08:34)
[2017-07-14] MEDS: IV NS 0.9% 1,000 ML IV PRN ×2 (10:06→23:00)
[2017-07-14] MEDS ORDERED: POTASSIUM CHLORIDE 20 MEQ TAB.PRT.SR PO SCH (10:30)
[2017-07-14] MEDS: METOCLOPRAMIDE HCL 10 MG/2 ML VIAL IV SCH ×2 (15:42→21:22)
[2017-07-14] MEDS: BOOST GLUCOSE CONTROL VANILLA 237 ML BOX PO SCH (17:00)
[2017-07-14] MEDS: ENOXAPARIN SODIUM 40 MG/0.4 ML DISP.SYRIN SQ SCH (21:25)
[2017-07-14] MEDS: ZOLPIDEM TARTRATE 5 MG TABLET PO PRN (23:00)
[2017-07-15] MEDS: PIPERACILLIN /TAZOBACTAM 2.25 G in IV D5W 50 ML IV SCH ×3 (00:07→12:15)
[2017-07-15] MEDS: MORPHINE SULFATE INJ 4 MG/ML DISP.SYRIN IV PRN ×3 (02:20→13:23)
[2017-07-15] MEDS: METOCLOPRAMIDE HCL 10 MG/2 ML VIAL IV SCH ×2 (05:04→13:20)
[2017-07-15] MEDS: BLOOD SUGAR DIAGNOSTIC 1 EACH STRIP VI SCH ×2 (06:30→12:13)
[2017-07-15] MEDS: BOOST GLUCOSE CONTROL VANILLA 237 ML BOX PO SCH (08:00)
[2017-07-15] MEDS: PANTOPRAZOLE 40 MG TABLET.DR PO SCH (08:49)
[2017-07-15] MEDS: METOPROLOL TARTRATE 25 MG TABLET PO SCH (08:57)
[2017-07-15] MEDS ORDERED: POTASSIUM CHLORIDE 10 MEQ TABLET.SA PO ONE (10:00)
== END 2017-07-15 14:59 | disposition home or self-care (01) | DRG 720 ==
DX: A41.9 Sepsis, unspecified organism (principal); N17.0 Acute kidney failure with tubular necrosis; E87.2 Acidosis; K31.84 Gastroparesis; E11.22 Type 2 diabetes mellitus with diabetic chronic kidney disease; I69.354 Hemiplegia and hemiparesis following cerebral infarction affecting left non-dominant side; E11.43 Type 2 diabetes mellitus with diabetic autonomic (poly)neuropathy; Z79.82 Long term (current) use of aspirin; N18.9 Chronic kidney disease, unspecified; K52.9 Noninfective gastroenteritis and colitis, unspecified; R65.20 Severe sepsis without septic shock; K21.9 Gastro-esophageal reflux disease without esophagitis; K85.90 Acute pancreatitis without necrosis or infection, unspecified; Z89.412 Acquired absence of left great toe; I12.9 Hypertensive chronic kidney disease with stage 1 through stage 4 chronic kidney disease, or unspecified chronic kidney disease; I25.10 Atherosclerotic heart disease of native coronary artery without angina pectoris; E78.5 Hyperlipidemia, unspecified; Z79.84 Long term (current) use of oral hypoglycemic drugs; Z79.899 Other long term (current) drug therapy; Z87.891 Personal history of nicotine dependence; Z79.4 Long term (current) use of insulin

== ENCOUNTER 2019-03-12 10:03 | Inpatient (IN) | payer MEDICAID, OTHER ==
[~2019-03-12] VITALS: Ht 167.6 cm; Wt 62.8 kg
[~2019-03-12 10:03] MED LIST changes: -AMLO10TA2 PO; +ASPI-1169 PO; -ASPI81TA2 PO; +GABA-534 PO; -GABA-536 PO; -HYDR-3326 PO; -METF500T4 PO; -METO25TA20 PO; +OXYC30TA2 PO
[2019-03-12] MEDS ORDERED: IV NS 0.9% 500 ML BAG IV ONE (10:30)
[2019-03-12] MEDS ORDERED: ONDANSETRON HCL/PF 4 MG/2 ML VIAL IVP ONE (10:30)
[2019-03-12] MEDS ORDERED: hydrALAZINE HCL IV 20 MG VIAL IV ONE (10:30)
[2019-03-12 10:36] LABS: BASOPHILS # (AUTO) 0.1 /CMM (0.0-0.2); BASOPHILS % (AUTO) 0.9 % (0.0-2.0); EOSINOPHILS % (AUTO) 0.6 % (0.0-6.0); HEMATOCRIT 34 % (39-51); HEMOGLOBIN 11.4 g/dL (13.5-17.5); LYMPHOCYTES # (AUTO) 1.4 /CMM (0.8-4.8); MEAN CORPUSCULAR HGB CONC 34 g/dl (31.0-36.0); MEAN CORPUSCULAR VOLUME 94 fL (80-96); MONOCYTES # (AUTO) 0.4 /CMM (0.1-1.30); MONOCYTES % (AUTO) 3.3 % (2.0-12.0); NEUTROPHILS % (AUTO) 83.2 % (43.0-81.0); PLATELET COUNT (AUTO) 375 /CMM (150-450); RED BLOOD CELL COUNT(AUTO) 3.61 MIL/uL (4.5-6.0)
[2019-03-12] MEDS ORDERED: ONDANSETRON HCL/PF 4 MG/2 ML VIAL ONE (10:36)
[2019-03-12] MEDS ORDERED: hydrALAZINE HCL IV 20 MG VIAL ONE (10:36)
[2019-03-12 10:47] LABS: CALCIUM, SERUM 8.6 mg/dL (8.5-10.1); CARBON DIOXIDE 22 mmol/L (21-32); CHLORIDE 105 mmol/L (98-107); GLUCOSE 160 mg/dL (74-106); POTASSIUM 3.9 mmol/L (3.5-5.1); SODIUM SERUM 138 mmol/L (136-145); UREA NITROGEN, BLOOD 43 mg/dL (7-18)
--- NOTE | 2019-03-12 10:48 | NUR ---
patient presented to the ER from PMD office c/o N/V, on room air, breathing evenly and unlabored. Connected to the monitor and pulse ox, denies any pain at this time, ambulatory with cane with steady gait. Kept comfortable, will continue to monitor accordingly.
[2019-03-12 10:53] LABS: ALANINE AMINOTRANSFERASE 23 U/L (12-78); ALBUMIN 4.1 g/dL (3.4-5.0); ALKALINE PHOSPHATASE 110 U/L (46-116); ASPARTATE AMINOTRANSFERASE 17 U/L (15-37); BILIRUBIN,DIRECT 0.1 mg/dL (0.0-0.2); BILIRUBIN,TOTAL 0.2 mg/dL (0.2-1.0); TOTAL PROTEIN, SERUM 8.5 g/dL (6.4-8.2)
[2019-03-12 11:11] LABS: LIPASE 4399 U/L (73-393)
[2019-03-12] MEDS ORDERED: ATOR40TA PO (11:57)
[2019-03-12] MEDS ORDERED: CHOL200026 PO (11:57)
[2019-03-12] MEDS ORDERED: INSU100I26 SQ (11:57)
[2019-03-12] MEDS ORDERED: NORT25CA PO (11:57)
--- NOTE | 2019-03-12 12:11 | NUR ---
GOT BED 310-2
--- NOTE | 2019-03-12 15:12 | NUR ---
wheeled patient via gurney accompanied by RN and emt in no apparent distress noted.
--- NOTE | 2019-03-12 15:15 | NUR ---
MUNICIPAL MAINTENANCE WORKERCARPENTER MINE NOTE RECEIVED PATIENT VIA GURNEY FROM ER. BEING ADMITTED TO TELEMETRY FLOOR BY DR. MUNGUIA. PATIENT IS ALERT ORIENTED X4. ON ROOM AIR, TOLERATING WELL. IN NO APPARENT DISTRESS OR DISCOMFORT AT THIS TIME. RESPIRATIONS EVEN AND UNLABORED. DENIES PAIN AND SOB. PATIENT REPORTS NAUSEA AT THIS TIME, NO EMESIS PRESENT. PATIENT IS STABLE, VITAL SIGNS STABLE. BELONGINGS CHECKED AND DOCUMENTED IN THE CHART. RIGHT AC 18G IVS SL, PATENT AND INTACT. COMPLETE PHYSICAL ASSESSMENT PERFORMED, SKIN CHECKED, PICTURES TAKEN PLACED IN CHART. PAST MEDICAL HISTORY OBTAINED FROM THE PATIENT. SAFETY MEASURES IMPLEMENTED, BED IN LOW LOCKED POSITION, SIDE RAILS UP X2, CALL LIGHT WITHIN EASY REACH. HOSPITALIST NOTIFIED OF PATIENT'S ARRIVAL TO THE UNIT. WILL CONTINUE TO MONITOR AND CARRY OUT ADMISSION ORDERS.
[2019-03-12 16:00] VITALS: BP 196/90
--- NOTE | 2019-03-12 16:00 | NUR ---
REPORTED TO DR. MUNGUIA, PATIENT'S BP IS 196/90, HR OF 122. PATIENT IS ASYMPTOMATIC. REPORTS NAUSEA AND MILD ABDOMINAL PAIN AT THIS TIME. AWAITING ORDERS AT THIS TIME.
[2019-03-12 16:45] VITALS: BP 196/90
--- NOTE | 2019-03-12 18:14 | NUR ---
DRIVER SERVICE TECHNICIAN CLOSING NOTE PATIENT IN BED. SLEEPING, EASILY AROUSED WITH VERBAL STIMULI. ORIENTED X3. ON ROOM AIR, TOLERATING WELL. IN NO APPARENT DISTRESS OR DISCOMFORT A THIS TIME. RESPIRATIONS EVEN AND UNLABORED, DENIES PAIN AND SOB. PATIENT IS ABLE TO COMMUNICATE NEEDS. RIGHT AC 18G IVC, SL, PATENT AND INTACT. PATIENT KEPT CLEAN AND COMFORTABLE. ALL NEEDS ATTENDED, AWAITING ADMISSION ORDERS AT THIS TIME. PHYSICIAN NOTIFIED. SAFETY MEASURES IN PLACE, BED IN LOW LOCKED POSITION, SIDE RAILS UP X2, CALL LIGHT WITHIN EASY REACH. WILL ENDORSE TO PM NURSE FOR DANIELA.
[2019-03-12] MEDS ORDERED: METOCLOPRAMIDE HCL 10 MG/2 ML VIAL IV PRN (19:30)
[2019-03-12] MEDS ORDERED: ACETAMINOPHEN 325 MG TABLET PO PRN (19:30)
[2019-03-12] MEDS ORDERED: ZOLPIDEM TARTRATE 5 MG TABLET PO PRN (19:30)
[2019-03-12] MEDS ORDERED: Z GUARD REMEDY 2 OZ OINT TP PRN (19:30)
[2019-03-12] MEDS ORDERED: HYDROMORPHONE INJ 0.5 MG/0.5 ML SYRINGE IV PRN (19:30)
--- NOTE | 2019-03-12 19:43 | NUR ---
BLOCKING MACHINE OPERATOR OPENING NOTES RECEIVED PATIENT IN BED ASLEEP. EASILY AROUSABLE. IN NO DISTRESS. ALERT AND ORIENTED X4 VERBALLY RESPONSIVE, ABLE TO MAKE NEEDS KNOWN. BREATHING EVEN AND UNLABORED. NO SOB NOTED. TOLERATING ROOM AIR. NO COMPLAINTS OF PAIN OR DISCOMFORT. NO FACIAL GRIMACING NO VOMITING. IV ON RIGHT AC G#18 INTACT AND PATENT. SKIN DRY AND WARM TO TOUCH. AFEBRILE. ALL OTHER NEEDS MET. SAFETY MEASURES IN PLACE. CALL LIGHT WITHIN REACH. WILL CONTINUE TO MONITOR.
--- NOTE | 2019-03-12 20:06 | NUR ---
RESTAURANT HOURLY MANAGER NOTES INFORMED DR. JUHI MUNGUIA REGARDING PATIENT'S BP 172/82 AND SINUS TACH 115-120 ON TELE MONITOR. PATIENT IS IN NO DISTRESS, SLEEPING. EASILY AROUSABLE. NO VOMITING. PER DR. MUNGUIA, HE WILL PUT IN ORDERS. WILL CONTINUE TO MONITOR.
[2019-03-12] MEDS ORDERED: hydrALAZINE HCL 25 MG TABLET PO PRN (20:30)
[2019-03-12 20:31] VITALS: BP 172/82
[2019-03-12] MEDS: METOPROLOL TARTRATE 25 MG TABLET PO SCH (20:51)
[2019-03-13] MEDS: IV NS 0.9% 1,000 ML IV PRN ×2 (01:03→17:15)
[2019-03-13] MEDS: ONDANSETRON HCL/PF 4 MG/2 ML VIAL IVP PRN ×3 (01:13→20:39)
--- NOTE | 2019-03-13 01:13 | NUR ---
SUPERVISOR TREE FRUIT AND NUT FARMING NOTES PATIENT HAD AN EPISODE OF VOMITING - ABOUT 300CC BROWN COLORED. GAVE ZOFRAN IV. WILL CONTINUE TO MONITOR.
[2019-03-13 01:15] VITALS: BP 124/73
--- NOTE | 2019-03-13 02:00 | NUR ---
FIELD CAPTAIN NOTES PER PATIENT, HE FELT RELIEF FROM ZOFRAN. NO FEELING ON NAUSEA. NO VOMITING. WILL CONTINUE TO MONITOR.
[2019-03-13] MEDS ORDERED: HYDROMORPHONE 1 MG/1 ML DISP.SYRIN ONE (02:35)
[2019-03-13 05:01] VITALS: BP 103/64
--- NOTE | 2019-03-13 06:32 | NUR ---
MOTOR VEHICLE EXAMINER CLOSING NOTES PATIENT RESTING IN BED. NOT IN ANY DISTRESS. HAD AN EPISODE OF FEELING PAIN (ACHING) ON THE MEDIAL CHEST AND REQUESTED FOR PAIN MEDICATION. PER PATIENT IT IS NOT THE HEART AND IT DOES NOT RADIATE. DILAUDID GIVEN AND PATIENT STATED HE FELT RELIEF. BREATHING EVEN AND UNLABORED. NO SOB NOTED. TOLERATING ROOM AIR. CURRENTLY WITH NO COMPLAINTS OF PAIN OR DISCOMFORT. IV ON RIGHT AC G#18 INTACT AND PATENT WITH IVF INFUSING. AFEBRILE. ALL OTHER NEEDS MET. SAFETY MEASURES IN PLACE. CALL LIGHT WITHIN REACH. WILL ENDORSE TO ONCOMING NURSE FOR DANIELA.
--- NOTE | 2019-03-13 07:30 | NUR ---
RN OPENING NOTES RECEIVED PATIENT IN BED RESTING. A/OX3, ABLE TO MAKE NEEDS KNOWN. NOT IN ANY FORM OF DISTRESS. NO SOB. IV ACCESS INTACT AND PATENT. KEPT PATIENT SAFE AND COMFORTABLE IN BED. BED IN LOW/LOCKED POSITION, SIDERAILS UPX2, CALL LIGHT IN REACH. WILL MONITOR ACCORDINGLY.
[2019-03-13 07:56] LABS: BASOPHILS % (AUTO) 0.4 % (0.0-2.0); HEMATOCRIT 34 % (39-51); HEMOGLOBIN 11.5 g/dL (13.5-17.5); LYMPHOCYTES # (AUTO) 1.5 /CMM (0.8-4.8); LYMPHOCYTES % (AUTO) 12.5 % (20.0-44.0); MEAN CORPUSCULAR HGB CONC 34 g/dl (31.0-36.0); MEAN CORPUSCULAR VOLUME 92 fL (80-96); MONOCYTES # (AUTO) 0.5 /CMM (0.1-1.30); NEUTROPHILS # (AUTO) 9.6 /CMM (1.8-8.9); NEUTROPHILS % (AUTO) 83.1 % (43.0-81.0); PLATELET COUNT (AUTO) 358 /CMM (150-450); RED BLOOD CELL COUNT(AUTO) 3.71 MIL/uL (4.5-6.0); WHITE BLOOD COUNT (AUTO) 11.6 K/uL (4.3-11.0)
[2019-03-13 08:00] VITALS: BP 126/71
[2019-03-13] MEDS: ATORVASTATIN 40 MG TABLET PO SCH (08:12)
[2019-03-13] MEDS: ASPIRIN 81 MG TAB.CHEW PO SCH (08:12)
[2019-03-13] MEDS: METOPROLOL TARTRATE 25 MG TABLET PO SCH ×2 (08:12→21:01)
[2019-03-13] MEDS: CHOLECALCIFEROL 1,000 UNIT TABLET (VIT D3) PO SCH (08:12)
[2019-03-13] MEDS: NORTRIPTYLINE HCL 25 MG CAPSULE PO SCH (08:15)
[2019-03-13 08:17] LABS: THYROID STIMULATING HORMONE 0.094 uIU/mL (0.358-3.74)
[2019-03-13] MEDS: HYDROMORPHONE 1 MG/1 ML DISP.SYRIN IV PRN ×2 (08:17→20:40)
[2019-03-13 08:24] LABS: ALBUMIN 3.8 g/dL (3.4-5.0); BILIRUBIN,TOTAL 0.4 mg/dL (0.2-1.0); CALCIUM, SERUM 9.2 mg/dL (8.5-10.1); MAGNESIUM 2.1 mg/dL (1.8-2.4); PHOSPHORUS 4.2 mg/dL (2.5-4.9); POTASSIUM 3.9 mmol/L (3.5-5.1); TOTAL PROTEIN, SERUM 8.1 g/dL (6.4-8.2)
--- NOTE | 2019-03-13 09:00 | NUR ---
rn notes patient signed wound debridement consent.
--- NOTE | 2019-03-13 09:30 | NUR ---
dr nuñez on bedside doing wound debridement.
--- NOTE | 2019-03-13 11:13 | NUR ---
WOUND CARE CONSULT: PT FOLLOWED BY DR LOPEZ FOR FEET. DEFER TO DPM FOR WOUND TREATMENT PLAN. PT INCONTINENT AT TIMES. DISCUSSED SKIN PROTECTION WITH NURSING STAFF. PT INDEPENDENT WITH BED MOBILITY. WILL SEE PRN.
[2019-03-13 16:00] VITALS: BP 111/69
[2019-03-13] MEDS: INSULIN GLARGINE, 100 UNIT/ML CARTRIDGE SQ SCH (17:36)
[2019-03-13] MEDS ORDERED: DEXTROSE 50%-WATER 50 ML DISP.SYRIN IV PRN (18:30)
[2019-03-13] MEDS ORDERED: INSULIN REGULAR, HUMAN 100 UNIT/ML 3 ML VIAL SQ PRN (18:30)
--- NOTE | 2019-03-13 18:33 | NUR ---
RN CLOSING NOTES PATIENT IN STABLE CONDITION. NO SIGNIFICANT CHANGE OF CONDITION DURING SHIFT. ALL NEEDS ATTENDED AND PROVIDED, ALL DUE MEDICATIONS, ADMINISTERED ORDERED. ASSISTED WITH ADLS. KEPT PATIENT SAFE AND COMFORTABLE IN BED. BE DIN LOW/LOCKED POSITION, SIDERAILS UPX2, CALL LIGHT IN REACH. WILL ENDORSED TO NIGHT RN FOR DANIELA.
--- NOTE | 2019-03-13 19:30 | NUR ---
MS RN NOTES RECEIVED ON BED A/O X4,BREATHING NORMAL,IVF NS AT 125ML/HR RATE IN PROGRESS ON RIGHT AC,SITE PATENT.S/P DEBRIDEMENT RIGHT FOOT WOUND THIS MORNING BY DR VELAZQUEZ,DRESSING INTACT AND DRY.NO BLEEDING NOTED.CLAIMED PAIN 7/10 BUT TOLERABLE.CALL LIGHT IN REACH,NEEDS ANTICIPATED.
[2019-03-13 20:00] VITALS: BP 131/78
--- NOTE | 2019-03-13 20:39 | NUR ---
MS RN NOTES C/O NAUSEA,NO ACTUAL VOMITING NOTED,ZOFRAN 4MG IV GIVEN ORDERED
--- NOTE | 2019-03-13 20:40 | NUR ---
MS RN NOTES C/O UPPER ABDOMINAL PAIN 9/10 ON PAIN SCALE,MEDICATED WITH DILAUDID 1MG IV ORDERED FOR SEVERE PAIN.
[2019-03-13] MEDS: BLOOD SUGAR DIAGNOSTIC 1 EACH STRIP IN SCH (21:55)
--- NOTE | 2019-03-13 22:00 | NUR ---
MS RN NOTES ACCU-CHECK BLOOD SUGAR CHECK 121,NO INSULIN COVERAGE.
[2019-03-14] MEDS: IV NS 0.9% 1,000 ML IV PRN ×3 (02:38→20:50)
[2019-03-14] MEDS: HYDROMORPHONE 1 MG/1 ML DISP.SYRIN IV PRN ×3 (05:20→20:50)
--- NOTE | 2019-03-14 05:20 | NUR ---
MS RN NOTES C/O UPPER ABDOMINAL PAIN 8/10 ON PAIN SCALE,DILAUDID 1MG IV GIVEN ORDERED.
[2019-03-14] MEDS: BLOOD SUGAR DIAGNOSTIC 1 EACH STRIP IN SCH ×4 (05:21→22:00)
--- NOTE | 2019-03-14 05:30 | NUR ---
MS RN NOTES ACCU-CHECK BLOOD SUGAR CHECK 163,COVERED WITH HUMULIN R 3 UNITS PER SLIDING SCALE.
--- NOTE | 2019-03-14 06:38 | NUR ---
MS RN NOTES SLEPT WELL AT NIGHT,PAIN MANAGEMENT EFFECTIVE,IVF IN PROGRESS,SITE REMAINS PATENT.IN NO ACUTE DISTRESS.CALL LIGHT IN REACH,NEEDS ATTENDED.WILL ENDORSE TO DAY NURSE FOR DANIELA.
--- NOTE | 2019-03-14 07:56 | NUR ---
M/S RN NOTES PATIENT RESTING IN BED, ALERT AND ORIENTED X 4, NO RESPIRATORY DISTRESS NOTED, DENIES ANY PAIN AT THIS TIME. SKIN WARM TO TOUCH. IVF OF NS INFUSING AT 125ML/HR ON THE RAC #20G, NO REDNESS AND NO INFILTRATION NOTED. BED ON LOW AND LOCKED POSITION, CALL LIGHT WITHIN REACH. WILL CONTINUE TO MONITOR.
[2019-03-14 07:58] LABS: ALBUMIN 3.2 g/dL (3.4-5.0); BILIRUBIN,TOTAL 0.5 mg/dL (0.2-1.0); CALCIUM, SERUM 8.5 mg/dL (8.5-10.1); CREATININE 1.7 mg/dL (0.6-1.3); MAGNESIUM 1.8 mg/dL (1.8-2.4); PHOSPHORUS 3.4 mg/dL (2.5-4.9); POTASSIUM 3.3 mmol/L (3.5-5.1); TOTAL PROTEIN, SERUM 7.2 g/dL (6.4-8.2)
[2019-03-14 08:00] VITALS: BP 186/108
[2019-03-14 08:19] LABS: BASOPHILS % (AUTO) 0.2 % (0.0-2.0); HEMATOCRIT 38 % (39-51); HEMOGLOBIN 12.6 g/dL (13.5-17.5); LYMPHOCYTES # (AUTO) 1.4 /CMM (0.8-4.8); LYMPHOCYTES % (AUTO) 9.3 % (20.0-44.0); MEAN CORPUSCULAR HGB CONC 33 g/dl (31.0-36.0); MEAN CORPUSCULAR VOLUME 93 fL (80-96); MONOCYTES # (AUTO) 0.5 /CMM (0.1-1.30); MONOCYTES % (AUTO) 3.4 % (2.0-12.0); NEUTROPHILS % (AUTO) 87.1 % (43.0-81.0); PLATELET COUNT (AUTO) 379 /CMM (150-450); RED BLOOD CELL COUNT(AUTO) 4.11 MIL/uL (4.5-6.0); WHITE BLOOD COUNT (AUTO) 14.9 K/uL (4.3-11.0)
[2019-03-14] MEDS: CHOLECALCIFEROL 1,000 UNIT TABLET (VIT D3) PO SCH (08:19)
[2019-03-14] MEDS: METOPROLOL TARTRATE 25 MG TABLET PO SCH ×2 (08:19→20:42)
[2019-03-14] MEDS: ATORVASTATIN 40 MG TABLET PO SCH (08:19)
[2019-03-14] MEDS: ASPIRIN 81 MG TAB.CHEW PO SCH (08:20)
[2019-03-14] MEDS: ONDANSETRON HCL/PF 4 MG/2 ML VIAL IVP PRN (08:20)
[2019-03-14] MEDS: NORTRIPTYLINE HCL 25 MG CAPSULE PO SCH (08:29)
[2019-03-14 10:00] VITALS: BP 123/69
[2019-03-14] MEDS ORDERED: POTASSIUM CL. PREMIX PERIPHER. 50 ML IV SCH (10:30)
[2019-03-14 15:49] VITALS: BP 136/82
[2019-03-14 16:11] LABS: BILIRUBIN,DIRECT 0.1 mg/dL (0.0-0.2)
--- NOTE | 2019-03-14 18:00 | NUR ---
M/S RN NOTES PATIENT ALERT AND ORIENTED X4, NO RESPIRATORY DISTRESS NOTED. DENIES ANY PAIN. PATIENT SKIN WARM TO TOUCH. BED ON LOW AND LOCKED POSITION AND CALL LIGHT WITHIN REACH. WILL ENDORSE TO ONCOMING NURSE, LABS TOMORROW AM.
[2019-03-14] MEDS: INSULIN GLARGINE, 100 UNIT/ML CARTRIDGE SQ SCH (18:37)
--- NOTE | 2019-03-14 19:38 | NUR ---
MS RN OPENING NOTES: RECEIVED PATIENT RESTING COMFORTABLY IN BED,ALERT AND ORIENTED X4, NO COMPLAIN OF PAIN AT THIS TIME. NO N/V NOTED. CALL LIGHT WITHIN REACH. INSTRUCTED TO CALL FOR ASSISTANCE ANYTIME, VERBALIZED UNDERSTANDING. URINAL WITHIN REACH.
[2019-03-14 20:39] VITALS: BP 162/96
--- NOTE | 2019-03-14 22:04 | NUR ---
BLOOD SUGAR HS WAS 95.
[2019-03-15] MEDS: HYDROMORPHONE 1 MG/1 ML DISP.SYRIN IV PRN ×4 (00:53→18:49)
[2019-03-15 01:41] VITALS: BP 118/68
[2019-03-15] MEDS: IV NS 0.9% 1,000 ML IV PRN (05:57)
[2019-03-15 06:19] LABS: BASOPHILS # (AUTO) 0.1 /CMM (0.0-0.2); BASOPHILS % (AUTO) 0.5 % (0.0-2.0); EOSINOPHILS % (AUTO) 0.1 % (0.0-6.0); HEMATOCRIT 39 % (39-51); HEMOGLOBIN 13.1 g/dL (13.5-17.5); LYMPHOCYTES # (AUTO) 2.4 /CMM (0.8-4.8); LYMPHOCYTES % (AUTO) 17.3 % (20.0-44.0); MEAN CORPUSCULAR HGB CONC 34 g/dl (31.0-36.0); MEAN CORPUSCULAR VOLUME 92 fL (80-96); MONOCYTES # (AUTO) 0.9 /CMM (0.1-1.30); MONOCYTES % (AUTO) 6.2 % (2.0-12.0); NEUTROPHILS # (AUTO) 10.6 /CMM (1.8-8.9); NEUTROPHILS % (AUTO) 75.9 % (43.0-81.0); PLATELET COUNT (AUTO) 394 /CMM (150-450); RED BLOOD CELL COUNT(AUTO) 4.23 MIL/uL (4.5-6.0)
[2019-03-15 06:49] LABS: ALBUMIN 3.5 g/dL (3.4-5.0); BILIRUBIN,TOTAL 0.6 mg/dL (0.2-1.0); CREATININE 1.6 mg/dL (0.6-1.3); MAGNESIUM 1.8 mg/dL (1.8-2.4); PHOSPHORUS 2.7 mg/dL (2.5-4.9); POTASSIUM 3.2 mmol/L (3.5-5.1); TOTAL PROTEIN, SERUM 7.8 g/dL (6.4-8.2)
[2019-03-15] MEDS: BLOOD SUGAR DIAGNOSTIC 1 EACH STRIP IN SCH ×3 (06:58→17:46)
--- NOTE | 2019-03-15 07:10 | NUR ---
MS/RN OPENING NOTE THE PATIENT ALERT AND ORIENTED X4. IN ROOM AIR AND DENIES SOB. RESPIRATION REGULAR AND UNLABORED. DENIES PAIN AT THIS TIME. THE PATIENT IS IN NO APPARENT DISTRESS. RAC G 18 PATENT AND NORMAL SALINE INFUSING AT 125ML/HR AND NO S/S INFILTRATION NOTED. BED LOW AND LOCKED. SIDE RAILS UP X2. CALL LIGHT WITHIN REACH. WILL CONTINUE TO MONITOR.
--- NOTE | 2019-03-15 07:25 | NUR ---
END OF SHIFT REPORTS: PATIENT IS RESTING COMFORTABLY IN BED. CALL LIGHT WITHIN REACH. NO ACUTE EVENTS OVERNIGHT. AFEBRILE. RESTED THROUGHOUT THE NIGHT.
[2019-03-15 08:42] VITALS: BP 133/77
[2019-03-15] MEDS: ATORVASTATIN 40 MG TABLET PO SCH (09:02)
[2019-03-15] MEDS: ASPIRIN 81 MG TAB.CHEW PO SCH (09:02)
[2019-03-15] MEDS: METOPROLOL TARTRATE 25 MG TABLET PO SCH (09:03)
[2019-03-15] MEDS: NORTRIPTYLINE HCL 25 MG CAPSULE PO SCH (09:03)
[2019-03-15] MEDS: CHOLECALCIFEROL 1,000 UNIT TABLET (VIT D3) PO SCH (09:04)
[2019-03-15] MEDS ORDERED: POTASSIUM CHLORIDE 10 MEQ TABLET.SA PO ONE (10:00)
[2019-03-15] MEDS ORDERED: HYDROCODONE/APAP 5/325MG 1 EACH TABLET PO PRN ×2 (11:30)
[2019-03-15 16:00] VITALS: BP 120/81
[2019-03-15] MEDS: INSULIN GLARGINE, 100 UNIT/ML CARTRIDGE SQ SCH (17:47)
[2019-03-15 18:20] VITALS: BP 120/81
--- NOTE | 2019-03-15 18:50 | NUR ---
MS/RN NOTE THE PATIENT ALERT AND ORIENTED X4. IN ROOM AIR AND SATURATION IS AT 95%. RESPIRATION REGULAR AND UNLABORED. DENIES PAIN. RAC G 18 PATENT AND NORMAL SALINE INFUSING AT 125ML/HR AND NO S/S INFILTRATION NOTED. THE PATIENT ASHLEY MECH SOFT DIET WELL. NO NAUSEA AND NO VOMITING NOTED. BED LOW AND LOCKED. SIDE RAILS UP X3. CALL LIGHT WITHIN REACH. WILL ENDORSE TO SUPERVISOR MACHINING.
--- NOTE | 2019-03-15 20:30 | NUR ---
STAGE DRIVER NOTES Pt IS BEING DISCHARGED HOME TONIGHT. Pt IS A/OX4, VERBAL, ABLE TO MAKE NEEDS KNOWN. REMOVED IV ON RAC. SECURED WITH GAUZE AND TAPE. NO SIGNS OF BLEEDING NOTED. Pt IS AMB WITH CANE. PER DAYSHIFT FROM RN LORI, WAS UNABLE TO FIND THE Pt's KEYS & WALLET, WHICH WERE DOCUMENTED IN THE Pt's BELONGING LIST. WAS UNABLE TO FIND IT WITH THE Pt's OTHER BELONGINGS & IN THE SURGICAL ORDERLY SAFE LOCKER & IN THE LOCKER IN 3WEST. INFORMED Pt TO LEAVE HIS CALL BACK NUMBER AND A BRIEF DESCRIPTION OF WHAT THE KEYS LOOK LIKE AND WHAT IS INSIDE HIS WALLET. TOLD Pt WE WILL CALL HIM BACK IF WE FIND HIS MISSING THINGS. I ASSISTED THE Pt DOWN TO HIS CAR WITH HIS CAREGIVER. Pt WAS ABLE TO WALK WITH HIS CANE SAFELY AND WITH STEADY GAIT. NO S/S OF ACUTE DISTRESS OR SOB NOTED. ID BAND REMOVED.
--- NOTE | 2019-03-15 20:45 | NUR ---
RN NOTES EVS FOUND Pt's MISSING KEYS AND WALLET & ONE $20 BILL, WHICH WAS FOUND IN A BELONGING BAG BEHIND THE NIGHT STAND. CALLED Pt TO INFORM HIM THAT HIS MISSING ITEMS WERE FOUND. TOLD Pt THAT WE WILL KEEP HIS THINGS IN THE FRONT IN THE NURSE's STATION; Pt SAID HE WILL COME TOMORROW MORNING TO COME PICK THEM UP.
--- NOTE | 2019-03-15 20:46 | NUR ---
REMINDER: TOMORRW MORNING WHEN Pt COMES TO FILLING SEPARATOR HIS MISSING BELONGINGS, HAVE Pt SIGN ON THE BELONGINGS LIST NEXT TO THE 3 ITEMS THAT WERE FOUND (ie, KEYS, $20, & WALLET). MAKE A COPY. KEEP ORIGINAL FOR US AND GIVE Pt THE COPY.
== END 2019-03-15 20:30 | disposition home or self-care (01) | DRG 282 ==
LOC: ER 10:05 → TELE 13:27 → MED 03-13 09:04
PROVIDERS: ADMIT Nurse Practitioner Acute Care; ATTEND Nurse Practitioner Acute Care
PROC: 0JBQ0ZZ Excision of Right Foot Subcutaneous Tissue and Fascia, Open Approach (ICD-10-PCS; principal; 2019-03-13)
DX: K85.90 Acute pancreatitis without necrosis or infection, unspecified (principal); N17.0 Acute kidney failure with tubular necrosis; E11.22 Type 2 diabetes mellitus with diabetic chronic kidney disease; K31.84 Gastroparesis; E11.42 Type 2 diabetes mellitus with diabetic polyneuropathy; E87.2 Acidosis; E87.1 Hypo-osmolality and hyponatremia; N18.3 Chronic kidney disease, stage 3 (moderate); E11.43 Type 2 diabetes mellitus with diabetic autonomic (poly)neuropathy; E11.51 Type 2 diabetes mellitus with diabetic peripheral angiopathy without gangrene; I12.9 Hypertensive chronic kidney disease with stage 1 through stage 4 chronic kidney disease, or unspecified chronic kidney disease; K21.9 Gastro-esophageal reflux disease without esophagitis; E86.0 Dehydration; I69.354 Hemiplegia and hemiparesis following cerebral infarction affecting left non-dominant side; Z89.412 Acquired absence of left great toe; Z89.421 Acquired absence of other right toe(s); Z91.011 Allergy to milk products; Z79.4 Long term (current) use of insulin; Z79.82 Long term (current) use of aspirin; Z79.899 Other long term (current) drug therapy; E11.52 Type 2 diabetes mellitus with diabetic peripheral angiopathy with gangrene; E87.6 Hypokalemia; I25.10 Atherosclerotic heart disease of native coronary artery without angina pectoris; L97.519 Non-pressure chronic ulcer of other part of right foot with unspecified severity; Z87.891 Personal history of nicotine dependence; E11.610 Type 2 diabetes mellitus with diabetic neuropathic arthropathy; E11.621 Type 2 diabetes mellitus with foot ulcer; E11.65 Type 2 diabetes mellitus with hyperglycemia; M86.60 Other chronic osteomyelitis, unspecified site; E78.5 Hyperlipidemia, unspecified; E11.69 Type 2 diabetes mellitus with other specified complication; D63.1 Anemia in chronic kidney disease
CPT/HCPCS: 36415; 71045-TC; 73630-TC; 80048-TC; 80053-TC; 80061-TC; 80076-TC; 82248-TC; 82962-TC; 83605-TC; 83690-TC; 83735-TC; 84100-TC; 84443-TC; 84484-TC; 85025-TC; 85652-TC; 87070-TC; 87081-TC; 93307-TC; 97116-TC; 97530-TC; G0378; J0360; J1170; J1815; J2405; J3480; J7030; J7040